=== PATIENT | female | born 1930 | race Caucasian/White ===

== ENCOUNTER → 2016-07-14 | Outpatient (CLI) | payer OTHER ==
[~2016-07-14] MED LIST: ACET-1311 PO; ANALGESIC; ASCO500T3 PO; ASPEC81 PO; CITA10TA8 PO; CITA40TA4 PO; DOCU1TAB6 PO; FRRS300 PO; GABA-112 PO; HYDR-5688 PO; LEVO100T7 PO; LPR25 PO; LPT40 PO; MRLP17X PO; NRN100 PO; NYST100010 TOP; NYSTOIN5; OXYB5TAB74 PO; SENN8.6C PO; SULF-183 PO; SULF800T23 PO; SYN75 PO; ULT50X PO; WARF5TAB7 PO; ZOLP5TAB PO; [UNRECOGNIZED DRUG - CODE] PO
== END | disposition home or self-care (01) ==
LOC: C.LABSPEC 16:49
PROVIDERS: ATTEND Internal Medicine
DX: J09.X2 Influenza due to identified novel influenza A virus with other respiratory manifestations (principal)

== ENCOUNTER → 2016-07-26 | Outpatient (CLI) | payer OTHER ==
[2016-07-26 08:32] LABS: INR 3.4 (0.9-1.1); PROTHROMBIN TIME (PATIENT) 38.5 SECONDS (9.0-12.0)
== END | disposition home or self-care (01) ==
LOC: C.LABSPEC 07:46
PROVIDERS: ATTEND Internal Medicine
DX: I63.50 Cerebral infarction due to unspecified occlusion or stenosis of unspecified cerebral artery (principal)

== ENCOUNTER → 2016-08-02 | Outpatient (CLI) | payer OTHER ==
[2016-08-02 08:50] LABS: INR 3.1 (0.9-1.1); PROTHROMBIN TIME (PATIENT) 34.8 SECONDS (9.0-12.0)
== END | disposition home or self-care (01) ==
LOC: C.LABSPEC 08:22
PROVIDERS: ATTEND Internal Medicine
DX: I48.91 Unspecified atrial fibrillation (principal)

== ENCOUNTER → 2016-08-09 | Outpatient (CLI) | payer OTHER ==
[2016-08-09 09:10] LABS: INR 3.3 (0.9-1.1); PROTHROMBIN TIME (PATIENT) 36.6 SECONDS (9.0-12.0)
== END | disposition home or self-care (01) ==
LOC: C.LABSPEC 08:50
PROVIDERS: ATTEND Internal Medicine
DX: I48.91 Unspecified atrial fibrillation (principal)

== ENCOUNTER → 2016-08-16 | Outpatient (CLI) | payer OTHER ==
[2016-08-16 08:23] LABS: INR 2.8 (0.9-1.1); PROTHROMBIN TIME (PATIENT) 31.1 SECONDS (9.0-12.0)
== END | disposition home or self-care (01) ==
LOC: C.LABSPEC 07:50
PROVIDERS: ATTEND Internal Medicine
DX: I48.91 Unspecified atrial fibrillation (principal)

== ENCOUNTER → 2016-08-30 | Outpatient (CLI) | payer OTHER ==
[2016-08-30 08:57] LABS: INR 2.9 (0.9-1.1); PROTHROMBIN TIME (PATIENT) 32.9 SECONDS (9.0-12.0)
== END | disposition home or self-care (01) ==
LOC: C.LABSPEC 08:14
PROVIDERS: ATTEND Internal Medicine
DX: I63.50 Cerebral infarction due to unspecified occlusion or stenosis of unspecified cerebral artery (principal)

== ENCOUNTER → 2016-09-12 | Outpatient (CLI) | payer OTHER ==
[2016-09-12 12:02] LABS: URINE APPEARANCE CLEAR (CLEAR); URINE BILIRUBIN NEG (NEG); URINE COLOR YELLOW; URINE NITRITE NEG (NEG); URINE PH 6.5 (4.5-7.5); URINE SPECIFIC GRAVITY 1.009 (1.000-1.030); UROBILINOGEN NEG (NEG)
[2016-09-12 12:05] LABS: MANUAL MICROSCOPIC REQUIRED? NO; REVIEW REQ? NO
== END | disposition home or self-care (01) ==
LOC: C.LABSPEC 16:38
PROVIDERS: ATTEND Internal Medicine
DX: R39.9 Unspecified symptoms and signs involving the genitourinary system (principal); N39.0 Urinary tract infection, site not specified

== ENCOUNTER → 2016-09-13 | Outpatient (CLI) | payer OTHER ==
[2016-09-13 08:53] LABS: PROTHROMBIN TIME (PATIENT) 41.4 SECONDS (9.0-12.0)
[2016-09-13 08:58] LABS: INR 3.7 (0.9-1.1)
== END | disposition home or self-care (01) ==
LOC: C.LABSPEC 08:14
PROVIDERS: ATTEND Internal Medicine
DX: I63.50 Cerebral infarction due to unspecified occlusion or stenosis of unspecified cerebral artery (principal)

== ENCOUNTER → 2016-09-20 | Outpatient (CLI) | payer OTHER ==
[2016-09-20 08:36] LABS: INR 2.2 (0.9-1.1)
== END | disposition home or self-care (01) ==
LOC: C.LABSPEC 07:57
PROVIDERS: ATTEND Internal Medicine
DX: I63.50 Cerebral infarction due to unspecified occlusion or stenosis of unspecified cerebral artery (principal)

== ENCOUNTER → 2016-10-04 | Outpatient (CLI) | payer OTHER ==
[2016-10-04 08:29] LABS: INR 3.1 (0.9-1.1); PROTHROMBIN TIME (PATIENT) 34.2 SECONDS (9.0-12.0)
== END | disposition home or self-care (01) ==
LOC: C.LABSPEC 07:46
PROVIDERS: ATTEND Internal Medicine
DX: I63.50 Cerebral infarction due to unspecified occlusion or stenosis of unspecified cerebral artery (principal)

== ENCOUNTER → 2016-10-05 | Outpatient (CLI) | payer OTHER ==
[~2016-10-05] MED LIST changes: +DTR/5 PO; -OXYB5TAB74 PO
[2016-10-05 17:15] LABS: BASO % 1.1 %; BASO ABS # 0.04 K/uL (0-0.2); COMPLETE YES; EOS % 4.4 %; HEMATOCRIT 35.1 % (37-47); LYMPH % 21.3 %; LYMPH ABS # 0.77 K/uL (1.2-3.4); MEAN CELL VOLUME 91.4 fL (80-100); MEAN CORPUSCULAR HEMOGLOBIN 28.1 pg (25-34); MEAN CORPUSCULAR HGB CONC 30.8 g/dl (32-36); MEAN PLATELET VOLUME 10.6 fL (7.4-10.4); MONO % 12.4 %; NEUT % 60.8 %; PLATELET COUNT 326 K/uL (130-400); RED BLOOD COUNT 3.84 M/uL (4.2-5.4); WHITE BLOOD COUNT 3.62 K/uL (4.8-10.8)
[2016-10-05 17:24] LABS: INR 2.2 (0.9-1.1); PROTHROMBIN TIME (PATIENT) 23.9 SECONDS (9.0-12.0)
[2016-10-05 17:27] LABS: ALT/SGPT 22 U/L (12-78); AST/SGOT 21 U/L (15-37); BLOOD UREA NITROGEN 20 mg/dl (7-18); BUN/CREATININE RATIO 20.9 (10-20); CALCIUM 8.3 mg/dl (8.5-10.1); CARBON DIOXIDE 28 mmol/L (21-32); CHLORIDE 111 mmol/L (98-107); CREATININE 0.97 mg/dl (0.60-1.20); GLUCOSE 91 mg/dl (70-99); POTASSIUM 4.2 mmol/L (3.5-5.1); SODIUM 145 mmol/L (136-145)
[2016-10-05 17:30] LABS: ALKALINE PHOSPHATASE 142 U/L (45-117)
== END | disposition home or self-care (01) ==
LOC: C.LABBFT 14:42
PROVIDERS: ATTEND Internal Medicine
DX: I48.91 Unspecified atrial fibrillation (principal); S40.029A Contusion of unspecified upper arm, initial encounter; X58.XXXA Exposure to other specified factors, initial encounter

== ENCOUNTER → 2016-10-18 | Outpatient (CLI) | payer OTHER ==
[2016-10-18 09:08] LABS: INR 1.5 (0.9-1.1); PROTHROMBIN TIME (PATIENT) 16.3 SECONDS (9.0-12.0)
== END | disposition home or self-care (01) ==
LOC: C.LABSPEC 08:02
PROVIDERS: ATTEND Internal Medicine
DX: Z51.81 Encounter for therapeutic drug level monitoring (principal); Z79.01 Long term (current) use of anticoagulants

== ENCOUNTER → 2016-11-01 | Outpatient (CLI) | payer OTHER ==
[2016-11-01 09:52] LABS: PROTHROMBIN TIME (PATIENT) 41.5 SECONDS (9.0-12.0)
[2016-11-01 09:56] LABS: INR 3.7 (0.9-1.1)
== END | disposition home or self-care (01) ==
LOC: C.LABSPEC 08:20
PROVIDERS: ATTEND Internal Medicine
DX: I63.50 Cerebral infarction due to unspecified occlusion or stenosis of unspecified cerebral artery (principal)

== ENCOUNTER → 2016-11-09 | Outpatient (CLI) | payer OTHER ==
[2016-11-09 14:43] LABS: URINE APPEARANCE CLEAR (CLEAR); URINE BILIRUBIN NEG (NEG); URINE COLOR YELLOW; URINE EPITHELIAL CELL AUTO >30 /lpf (0-5); URINE NITRITE POS (NEG); URINE PH 5.5 (4.5-7.5); URINE SPECIFIC GRAVITY 1.021 (1.000-1.030); UROBILINOGEN NEG (NEG)
[2016-11-09 14:46] LABS: MANUAL MICROSCOPIC REQUIRED? NO; REVIEW REQ? NO
== END | disposition home or self-care (01) ==
LOC: C.LABSPEC 13:25
PROVIDERS: ATTEND Physician Assistant Medical
DX: R39.9 Unspecified symptoms and signs involving the genitourinary system (principal); N39.0 Urinary tract infection, site not specified

== ENCOUNTER → 2016-11-15 | Outpatient (CLI) | payer OTHER ==
[2016-11-15 12:55] LABS: PROTHROMBIN TIME (PATIENT) 42.1 SECONDS (9.0-12.0)
[2016-11-15 12:56] LABS: INR 3.7 (0.9-1.1)
== END | disposition home or self-care (01) ==
LOC: C.LABSPEC 11:12
PROVIDERS: ATTEND Internal Medicine
DX: I48.91 Unspecified atrial fibrillation (principal)

== ENCOUNTER → 2016-11-16 | Outpatient (CLI) | payer OTHER ==
[2016-11-16 12:23] LABS: INR 2.9 (0.9-1.1)
== END | disposition home or self-care (01) ==
LOC: C.LABBFT 10:21
PROVIDERS: ATTEND Physician Assistant Medical
DX: I48.91 Unspecified atrial fibrillation (principal)

== ENCOUNTER 2016-11-22 17:40 | Emergency (ER) | payer OTHER ==
[~2016-11-22 17:40] MED LIST changes: -ACET-1311 PO; -ANALGESIC; -CITA10TA8 PO; -CITA40TA4 PO; -DOCU1TAB6 PO; -DTR/5 PO; -GABA-112 PO; -HYDR-5688 PO; -MRLP17X PO; -NYST100010 TOP; -NYSTOIN5; -SULF-183 PO; -SULF800T23 PO; -SYN75 PO; -ULT50X PO; -WARF5TAB7 PO; -ZOLP5TAB PO; -[UNRECOGNIZED DRUG - CODE] PO
[2016-11-22 17:43] VITALS: TEMP 36.7
[2016-11-22] MEDS ORDERED: HYDROCODONE/ACETAMOPHEN 5/325MG TAB PO STA (18:00)
--- NOTE | 2016-11-22 18:15 | EMERGENCY ROOM VISIT NOTE ---
"ED Visit Note First contact with patient: 17:52 CHIEF COMPLAINT: Right knee pain HISTORY OF PRESENT ILLNESS: This 86-year-old female patient presents to the emergency department with her daughters with complaint of right knee pain and swelling for the past 2-3 days. She denies any injury to the knee. The patient reports some swelling, but no bruising. There is pain with bending the knee and walking on the knee. They rate the pain as aching and 6/10. The patient states they are able to walk on it, but this increases the pain. No numbness or tingling. No previous injuries to this knee. No ankle, foot or hip pain. Patient states that she takes Coumadin for history of a stroke. She was recently placed on amoxicillin treatment, today is her last day of this course. REVIEW OF SYSTEMS: A 6 system review of systems was completed with positives and pertinent negatives listed in the HPI. ALLERGIES: None MEDICATIONS: See chart PMH: See chart SOCIAL HISTORY: Lives in assisted living. PHYSICAL EXAM: Vital Signs: Reviewed Nurse's notes, vital signs stable. GENERAL : Alert and pleasant, no acute distress, but appears in mild pain, well- developed, well-nourished. MENTAL STATUS: Alert, oriented to person place and time, and cooperative. MUSCULOSKELETAL: The right knee is mildly swollen. There is no ecchymosis. There is a moderate joint effusion present. The patient is tender to palpation of the superior and lateral region and with flexion. There is no joint line tenderness. The patella does not subluxate. Range of motion is within normal limits. Strength of the quads and hamstrings is 5/5. Ariana's and Anterior Drawer tests are negative. There is no pain or laxity with varus and valgus stressing. The foot and toes are warm and well- perfused. Dorsalis pedis pulse 2+. Sensation to pain and light touch is intact. Capillary refill less than 2 seconds. IMAGING: RIGHT KNEE 2 VIEWS CLINICAL HISTORY: Right knee pain. FINDINGS: AP and crosstable lateral views of the right knee are obtained. No prior studies are available for comparison at the time of dictation. The skeletal structures are osteopenic. No fracture is seen. There is severe joint space narrowing in the lateral compartment with bony sclerosis and subchondral cyst rotation. Moderate to advanced narrowing is seen in the medial and patellofemoral compartments. A calcified fabella is incidentally noted. There are large patellar enthesophytes as well as large lateral marginal osteophytes. There is degenerative beaking of the tibial spine. Chondrocalcinosis is seen in the medial and lateral compartments. A joint effusion is noted. Calcific debris is present in the suprapatellar region. There is atherosclerotic calcification of the popliteal artery. Mild prepatellar soft tissue edema is noted. IMPRESSION: 1. No acute bony abnormality is identified. 2. Soft tissue swelling and joint effusion. 3. Osteopenia, chondrocalcinosis, and arthritic change as detailed above. ULTRASOUND RIGHT LOWER EXTREMITY VENOUS CLINICAL HISTORY: Right leg pain and swelling. COMPARISON STUDY: No priors. TECHNIQUE: Real-time, grayscale, and color Doppler sonography of the deep veins of the right lower extremity was performed from the inguinal crease to the calf. Compression and augmentation were utilized. FINDINGS: There is no sonographic evidence of deep venous thrombosis identified in the right lower extremity. The common femoral, superficial femoral, and popliteal veins are patent and normally compressible. The greater saphenous vein and the profunda femoris vein at the junction with the common femoral vein are clear. The visualized calf veins are patent. There is a complex popliteal cyst measuring 6.6 x 1.6 x 3.6 cm. There is also a complex fluid collection within the anterolateral right knee at the site of interest which measures 6.3 x 1.7 x 5.6 cm. IMPRESSION: 1. There is no sonographic evidence of deep venous thrombosis identified in the right lower extremity. 2. Complex bakers cyst. 3. There is a complex fluid collection within the anterolateral right knee at the site of interest as above. This likely represents a joint effusion. Clinical correlation will be required. EMERGENCY DEPARTMENT COURSE: I examined the patient. Differential diagnosis includes knee sprain, strain, hemarthrosis, joint effusion, DVT; I do not suspect septic joint. She is in no acute distress. She does not appear pale or dehydrated. There is moderate effusion noted to the right knee, painful range of motion, especially flexion past 45. She also has posterior knee and calf pain with mild swelling. The patient's daughters are concerned about a blood clot in the leg. Patient does take Coumadin daily and states she has not missed any doses, I believe hemarthrosis is more likely DVT is less likely given Coumadin therapy. However due to her tenderness in the posterior calf, venous duplex was ordered, negative for DVT but does show moderate joint effusion. X-rays of the right knee were reviewed by myself and read by radiology and reveal no acute bony abnormality, confirm joint effusion. Basic labs are unremarkable, INR is supratherapeutic at 3.5, which may contribute to the suspected bleeding in her knee joint. Given her recent treatment with amoxicillin, this may have contributed to her elevated INR. Patient was instructed to hold her Coumadin dose tonight, and resume her normal dose tomorrow, with a recheck INR in 2 days. The patient's pain is greatly improved after oral [place]. The patient was placed in an Jai wrap to the right knee for compression under my direction and the position was satisfactory. The patient was instructed on the use of her walker. The patient was discharged home in good condition. Problem List Medical Problems: (1) Benign essential hypertension Status: Chronic (2) Carcinoma of sigmoid colon Status: Resolved (3) Hyperlipidemia Status: Chronic (4) Hypothyroidism Status: Chronic Current/Historical Medications Scheduled Ascorbic Acid (Vitamin C), 1 TAB PO BIDM Aspirin (Aspirin EC Low Dose), 81 MG PO QAM Atorvastatin (Atorvastatin Calcium), 80 MG PO PM Citalopram (Citalopram Hydrobromide), 1 TAB PO DAILY Ferrous Sulfate (Ferrous Sulfate), 325 MG PO BIDM Gabapentin (Gabapentin), 100 MG PO TID Levothyroxine Sodium (Levothyroxine Sodium), 100 MCG PO DAILY Metoprolol Tartrate (Lopressor), 25 MG PO BID Warfarin Sod (Jantoven), 5 MG PO DAILY Scheduled PRN Hydrocodone/Acetaminophen 5MG/325MG ([place] 5MG/325MG), 1 TABLET PO Q6H PRN for Pain Miscellaneous Medications Nystatin/Triamcinolone (Mycogen ||) Allergies Coded Allergies: No Known Allergies (Verified , 04/01/14) Vital Signs Date Time Temp Pulse Resp B/P Pulse Ox O2 Delivery O2 Flow Rate FiO2 11/22/16 21:11 60 16 165/90 93 Room Air 11/22/16 19:02 56 16 129/60 91 Room Air 11/22/16 17:43 36.7 80 16 131/56 94 Room Air Laboratory Results 11/22/16 18:20 Red Blood Count 4.09, Mean Corpuscular Volume 91.7, Mean Corpuscular Hemoglobin 28.1, Mean Corpuscular Hemoglobin Concent 30.7, Mean Platelet Volume 10.3, Neutrophils (%) (Auto) 58.8, Lymphocytes (%) (Auto) 19.9, Monocytes (%) (Auto) 15.9, Eosinophils (%) (Auto) 4.3, Basophils (%) (Auto) 1.1, Neutrophils # (Auto ) 2.19, Lymphocytes # (Auto) 0.74, Monocytes # (Auto) 0.59, Eosinophils # (Auto ) 0.16, Basophils # (Auto) 0.04 11/22/16 18:20 Test 11/22/16 18:20 White Blood Count 3.72 K/uL (4.8-10.8) Red Blood Count 4.09 M/uL (4.2-5.4) Hemoglobin 11.5 g/dL (12.0-16.0) Hematocrit 37.5 % (37-47) Mean Corpuscular Volume 91.7 fL (80-100) Mean Corpuscular Hemoglobin 28.1 pg (25-34) Mean Corpuscular Hemoglobin Concent 30.7 g/dl (32-36) Platelet Count 275 K/uL (130-400) Mean Platelet Volume 10.3 fL (7.4-10.4) Neutrophils (%) (Auto) 58.8 % Lymphocytes (%) (Auto) 19.9 % Monocytes (%) (Auto) 15.9 % Eosinophils (%) (Auto) 4.3 % Basophils (%) (Auto) 1.1 % Neutrophils # (Auto) 2.19 K/uL (1.4-6.5) Lymphocytes # (Auto) 0.74 K/uL (1.2-3.4) Monocytes # (Auto) 0.59 K/uL (0.11-0.59) Eosinophils # (Auto) 0.16 K/uL (0-0.5) Basophils # (Auto) 0.04 K/uL (0-0.2) RDW Standard Deviation 47.3 fL (36.4-46.3) RDW Coefficient of Variation 14.2 % (11.5-14.5) Immature Granulocyte % (Auto) 0.0 % Immature Granulocyte # (Auto) 0.00 K/uL (0.00-0.02) Prothrombin Time 38.9 SECONDS (9.0-12.0) Prothromb Time International Ratio 3.5 (0.9-1.1) Anion Gap 6.0 mmol/L (3-11) Estimated GFR () 62.8 Estimated GFR (Non- 54.2 BUN/Creatinine Ratio 22.5 (10-20) Calcium Level 8.3 mg/dl (8.5-10.1) Medications Administered Medications (Trade) Dose Ordered Sig/Josefina Route Start Time Stop Time Status Last Admin Dose Admin Acetaminophen/ Hydrocodone Bitart ([place] 5/325 Tab) 1 tab NOW STAT PO 11/22/16 18:00 11/22/16 18:02 DC 11/22/16 18:24 1 TAB Departure Information Impression Primary Impression: Effusion, right knee Dispostion Home / Self-Care Condition GOOD Prescriptions Hydrocodone/Acetaminophen 5MG/325MG ([place] 5MG/325MG) Tab 1 TABLET PO Q6H Y for Pain for 3 Days, #12 TAB For Initial Treatment Prov: Kalpana Montero CRNP 11/22/16 Referrals [facility] (PCP) Patient Instructions ED Effusion Knee, [facility] Additional Instructions Ice and elevate knee for swelling and pain. Keep knee wrapped with the Jai wrap for the next several days to help swelling and improve comfort. Use your walker at all times for getting around to help prevent falls. [place] 5/325 1 tablet every 6 hrs as needed for pain relief. Follow-up with your PCP or Orthopedics for further evaluation and treatment - call for appointment. Your INR today was 3.5, which is slightly higher than it should be. Do not take your warfarin tonight (11/22/16). You may resume taking her warfarin tomorrow, 11/23. You should plan to follow up with your family doctor for a repeat INR blood test in 2 days."
[2016-11-22] MEDS ORDERED: NYSTOIN5 (18:22)
[2016-11-22] MEDS ORDERED: CITA40TA4 PO (18:22)
[2016-11-22] MEDS ORDERED: WARF5TAB7 PO (18:22)
[2016-11-22 18:27] LABS: BASO % 1.1 %; BASO ABS # 0.04 K/uL (0-0.2); COMPLETE YES; EOS % 4.3 %; HEMATOCRIT 37.5 % (37-47); LYMPH % 19.9 %; LYMPH ABS # 0.74 K/uL (1.2-3.4); MEAN CELL VOLUME 91.7 fL (80-100); MEAN CORPUSCULAR HEMOGLOBIN 28.1 pg (25-34); MEAN CORPUSCULAR HGB CONC 30.7 g/dl (32-36); MEAN PLATELET VOLUME 10.3 fL (7.4-10.4); MONO % 15.9 %; NEUT % 58.8 %; PLATELET COUNT 275 K/uL (130-400); RED BLOOD COUNT 4.09 M/uL (4.2-5.4); WHITE BLOOD COUNT 3.72 K/uL (4.8-10.8)
[2016-11-22 18:35] LABS: INR 3.5 (0.9-1.1); PROTHROMBIN TIME (PATIENT) 38.9 SECONDS (9.0-12.0)
--- NOTE | 2016-11-22 18:40 | EMERGENCY ROOM VISIT NOTE ---
ED Visit Note First contact with patient: 17:52 I saw this patient in conjunction with Kalpana Bartlett. I agree with her decision- making and treatment plan.
[2016-11-22 19:00] LABS: BLOOD UREA NITROGEN 21 mg/dl (7-18); BUN/CREATININE RATIO 22.5 (10-20); CALCIUM 8.3 mg/dl (8.5-10.1); CARBON DIOXIDE 26 mmol/L (21-32); CHLORIDE 110 mmol/L (98-107); CREATININE 0.94 mg/dl (0.60-1.20); GLUCOSE 133 mg/dl (70-99); POTASSIUM 4.3 mmol/L (3.5-5.1); SODIUM 142 mmol/L (136-145)
--- NOTE | 2016-11-22 19:01 | DIAGNOSTIC IMAGING REPORT ---
RIGHT KNEE 2 VIEWS CLINICAL HISTORY: Right knee pain. FINDINGS: AP and crosstable lateral views of the right knee are obtained. No prior studies are available for comparison at the time of dictation. The skeletal structures are osteopenic. No fracture is seen. There is severe joint space narrowing in the lateral compartment with bony sclerosis and subchondral cyst rotation. Moderate to advanced narrowing is seen in the medial and patellofemoral compartments. A calcified fabella is incidentally noted. There are large patellar enthesophytes as well as large lateral marginal osteophytes. There is degenerative beaking of the tibial spine. Chondrocalcinosis is seen in the medial and lateral compartments. A joint effusion is noted. Calcific debris is present in the suprapatellar region. There is atherosclerotic calcification of the popliteal artery. Mild prepatellar soft tissue edema is noted. IMPRESSION: 1. No acute bony abnormality is identified. 2. Soft tissue swelling and joint effusion. 3. Osteopenia, chondrocalcinosis, and arthritic change as detailed above. Electronically signed by: William Jacobo M.D. 11/22/2016 7:00 PM Dictated Date/Time: 11/22/2016 6:57 PM
--- NOTE | 2016-11-22 19:47 | DIAGNOSTIC IMAGING REPORT ---
ULTRASOUND RIGHT LOWER EXTREMITY VENOUS CLINICAL HISTORY: Right leg pain and swelling. COMPARISON STUDY: No priors. TECHNIQUE: Real-time, grayscale, and color Doppler sonography of the deep veins of the right lower extremity was performed from the inguinal crease to the calf. Compression and augmentation were utilized. FINDINGS: There is no sonographic evidence of deep venous thrombosis identified in the right lower extremity. The common femoral, superficial femoral, and popliteal veins are patent and normally compressible. The greater saphenous vein and the profunda femoris vein at the junction with the common femoral vein are clear. The visualized calf veins are patent. There is a complex popliteal cyst measuring 6.6 x 1.6 x 3.6 cm. There is also a complex fluid collection within the anterolateral right knee at the site of interest which measures 6.3 x 1.7 x 5.6 cm. IMPRESSION: 1. There is no sonographic evidence of deep venous thrombosis identified in the right lower extremity. 2. Complex bakers cyst. 3. There is a complex fluid collection within the anterolateral right knee at the site of interest as above. This likely represents a joint effusion. Clinical correlation will be required. Electronically signed by: William Jacobo M.D. 11/22/2016 7:45 PM Dictated Date/Time: 11/22/2016 7:44 PM
[2016-11-22] MEDS ORDERED: HYDR-5688 PO (21:08)
[2016-11-22 21:11] VITALS: BP 165/90; PULSE 60; O2SAT 93
[2017-03-25] MEDS ORDERED: DTR/5 PO (10:05)
[2017-03-27] MEDS ORDERED: SYN75 PO (13:57)
[2017-03-27] MEDS ORDERED: MRLP17X PO (13:57)
[2017-03-27] MEDS ORDERED: ULT50X PO (13:57)
[2017-03-27] MEDS ORDERED: LPR25 PO (15:08)
== END 2016-11-22 21:18 | disposition home or self-care (01) ==
LOC: C.EDB 17:41 → C.EDD 21:18
DX: M25.461 Effusion, right knee (principal); I10 Essential (primary) hypertension; E78.5 Hyperlipidemia, unspecified; E03.9 Hypothyroidism, unspecified; Z85.038 Personal history of other malignant neoplasm of large intestine; Z79.82 Long term (current) use of aspirin; Z79.01 Long term (current) use of anticoagulants; Z79.899 Other long term (current) drug therapy; M79.661 Pain in right lower leg

== ENCOUNTER → 2016-11-29 | Outpatient (CLI) | payer OTHER ==
[~2016-11-29] MED LIST changes: +ACET-1311 PO; +ANALGESIC; +CITA10TA8 PO; +CITA40TA4 PO; +DOCU1TAB6 PO; +DTR/5 PO; +GABA-112 PO; +MRLP17X PO; +NYST100010 TOP; +NYSTOIN5; -SENN8.6C PO; +SULF-183 PO; +SULF800T23 PO; +SYN75 PO; +ULT50X PO; +WARF5TAB7 PO; +ZOLP5TAB PO; +[UNRECOGNIZED DRUG - CODE] PO
[2016-11-29 12:28] LABS: INR 3.1 (0.9-1.1); PROTHROMBIN TIME (PATIENT) 34.3 SECONDS (9.0-12.0)
== END | disposition home or self-care (01) ==
LOC: C.LABSPEC 15:41
PROVIDERS: ATTEND Internal Medicine
DX: Z51.81 Encounter for therapeutic drug level monitoring (principal); Z79.01 Long term (current) use of anticoagulants

== ENCOUNTER → 2017-01-10 | Outpatient (CLI) | payer OTHER ==
[~2017-01-10] MED LIST changes: -DTR/5 PO; +OXYB5TAB74 PO
[2017-01-10 14:46] LABS: MANUAL MICROSCOPIC REQUIRED? NO; REVIEW REQ? NO; URINE APPEARANCE CLEAR (CLEAR); URINE BILIRUBIN NEG (NEG); URINE COLOR YELLOW; URINE NITRITE NEG (NEG); URINE PH 6.5 (4.5-7.5); URINE SPECIFIC GRAVITY 1.016 (1.000-1.030); UROBILINOGEN NEG (NEG)
== END | disposition home or self-care (01) ==
LOC: C.LABSPEC 13:17
PROVIDERS: ATTEND Internal Medicine
DX: N39.8 Other specified disorders of urinary system (principal)

== ENCOUNTER → 2017-02-14 | Outpatient (CLI) | payer OTHER ==
[2017-02-14 08:33] LABS: INR 1.9 (0.9-1.1); PROTHROMBIN TIME (PATIENT) 20.7 SECONDS (9.0-12.0)
== END | disposition home or self-care (01) ==
LOC: C.LABSPEC 07:47
PROVIDERS: ATTEND Internal Medicine
DX: I48.91 Unspecified atrial fibrillation (principal)

== ENCOUNTER → 2017-02-28 | Outpatient (CLI) | payer OTHER ==
[2017-02-28 09:45] LABS: INR 1.6 (0.9-1.1); PROTHROMBIN TIME (PATIENT) 17.2 SECONDS (9.0-12.0)
== END | disposition home or self-care (01) ==
LOC: C.LABSPEC 09:04
PROVIDERS: ATTEND Internal Medicine
DX: I67.89 Other cerebrovascular disease (principal)

== ENCOUNTER → 2017-03-14 | Outpatient (CLI) | payer OTHER ==
[2017-03-14 08:13] LABS: INR 1.5 (0.9-1.1); PROTHROMBIN TIME (PATIENT) 16.1 SECONDS (9.0-12.0)
== END | disposition home or self-care (01) ==
LOC: C.LABSPEC 07:43
PROVIDERS: ATTEND Internal Medicine
DX: Z51.81 Encounter for therapeutic drug level monitoring (principal); Z79.01 Long term (current) use of anticoagulants; I48.91 Unspecified atrial fibrillation

== ENCOUNTER → 2017-03-21 | Outpatient (CLI) | payer OTHER ==
[2017-03-21 11:37] LABS: URINE APPEARANCE CLOUDY (CLEAR); URINE BILIRUBIN NEG (NEG); URINE COLOR YELLOW; URINE EPITHELIAL CELL AUTO >30 /lpf (0-5); URINE NITRITE POS (NEG); URINE SPECIFIC GRAVITY 1.007 (1.000-1.030); UROBILINOGEN NEG (NEG)
[2017-03-21 11:40] LABS: MANUAL MICROSCOPIC REQUIRED? NO; REVIEW REQ? YES
== END | disposition home or self-care (01) ==
LOC: C.LABSPEC 08:52
PROVIDERS: ATTEND Internal Medicine
DX: N39.0 Urinary tract infection, site not specified (principal)

== ENCOUNTER 2017-03-25 09:00 | Inpatient (IN) | payer OTHER ==
[~2017-03-25] VITALS: Ht 157.5 cm; Wt 76.3 kg
[~2017-03-25 09:00] MED LIST changes: -ACET-1311 PO; -ANALGESIC; -CITA10TA8 PO; -DOCU1TAB6 PO; -GABA-112 PO; -MRLP17X PO; -NYST100010 TOP; -OXYB5TAB74 PO; -SULF-183 PO; -SULF800T23 PO; -SYN75 PO; -ULT50X PO; -ZOLP5TAB PO; -[UNRECOGNIZED DRUG - CODE] PO
[2017-03-25] MEDS ORDERED: SODIUM CHLORIDE 0.9% 500ML 500 ML IV STA (09:26)
[2017-03-25] MEDS ORDERED: SULF-183 PO (09:59)
[2017-03-25] MEDS ORDERED: GABA-112 PO (09:59)
[2017-03-25] MEDS ORDERED: CITA10TA8 PO (09:59)
[2017-03-25] MEDS ORDERED: WARF5TAB7 PO (09:59)
[2017-03-25] MEDS ORDERED: DOCU1TAB6 PO (10:05)
[2017-03-25] MEDS ORDERED: ZOLP5TAB PO (10:05)
[2017-03-25] MEDS ORDERED: [UNRECOGNIZED DRUG - CODE] PO (10:05)
[2017-03-25] MEDS ORDERED: NYST100010 TOP (10:05)
[2017-03-25] MEDS ORDERED: ACET-1311 PO (10:05)
[2017-03-25] MEDS ORDERED: OXYB5TAB74 PO (10:05)
[2017-03-25] MEDS ORDERED: ANALGESIC (10:05)
[2017-03-25 10:11] LABS: BASO % 0.4 %; BASO ABS # 0.02 K/uL (0-0.2); COMPLETE YES; EOS % 2.4 %; HEMATOCRIT 39.9 % (37-47); IG% 0.4 %; LYMPH % 6.4 %; LYMPH ABS # 0.35 K/uL (1.2-3.4); MEAN CELL VOLUME 92.8 fL (80-100); MEAN CORPUSCULAR HEMOGLOBIN 29.1 pg (25-34); MEAN CORPUSCULAR HGB CONC 31.3 g/dl (32-36); MEAN PLATELET VOLUME 10.1 fL (7.4-10.4); MONO % 7.6 %; NEUT % 82.8 %; PLATELET COUNT 266 K/uL (130-400); WHITE BLOOD COUNT 5.43 K/uL (4.8-10.8)
--- NOTE | 2017-03-25 10:16 | EMERGENCY ROOM VISIT NOTE ---
History Report prepared by Emma: Emeterio Higgins Under the Supervision of: Dr. Cayden Hendrickson D.O. First contact with patient: 09:16 Chief Complaint: FALL Stated Complaint: FALL History of Present Illness The patient is an 86 year old female who presents to the Emergency Room with complaints of a sudden fall occurring around 0730 this morning. The patient's family states that the patient has been having numb legs, and this morning she fell at home. The family additionally states that the patient fell about a week ago, though she did not come in for evaluation. The patient is complaining of hip pain, leg pain, and back pain. The patient denies any nausea, vomiting, headache, neck pain, and abdominal pain. The patient is currently on antibiotics for a UTI, and she is on blood thinners for an irregular heart beat. Additionally, her family states that she has been more confused recently. Source of History: patient Onset: 0730 Position: other (global) Quality: other (fall) Timing: other (sudden) Associated Symptoms: + back pain, No neck pain, No nausea, No vomiting, No abdominal pain Note: Associated symptoms: Leg and hip pain Review of Systems See HPI for pertinent positives & negatives. A total of 10 systems reviewed and were otherwise negative. Past Medical & Surgical Medical Problems: (1) Benign essential hypertension (2) Carcinoma of sigmoid colon (3) Fall (4) Hyperlipidemia (5) Hypothyroidism Family History Insignificant due to old age Social History Smoking Status: Never Smoker Alcohol Use: none Drug Use: none Marital Status: Housing Status: lives alone Occupation Status: retired Current/Historical Medications Scheduled Ascorbic Acid (Vitamin C), 1 TAB PO BIDM Aspirin (Aspirin EC Low Dose), 81 MG PO QAM Atorvastatin (Atorvastatin Calcium), 80 MG PO PM Citalopram Hydrobromide (Celexa), 10 MG PO DAILY Gabapentin (Neurontin), 200 MG PO TID Levothyroxine Sodium (Levothyroxine Sodium), 100 MCG PO DAILY Metoprolol Tartrate (Lopressor), 25 MG PO BID Oxybutynin Chloride (Ditropan), 5 MG PO BID Sulfamethoxazole-Trimethoprim (Bactrim Ds 800MG/160MG), 1 TAB PO BID Warfarin Sod (Jantoven), 2.5 MG PO Q2D Warfarin Sod (Jantoven), 1 TAB PO Q2D Zolpidem Tartrate (Ambien), 5 MG PO HS [Analgesic Gel], 1 APPLN DIRECTED Scheduled PRN Acetaminophen (Qc Arthritis Pain Relief), 2 TABS PO BID PRN for Pain Docusate Sodium (Docusate Sodium), 1 CAP PO DAILY PRN for Constipation Nystatin (Topical) (Nystop), 1 APPLN TOP BID PRN for RED AREAS Allergies Coded Allergies: No Known Allergies (Verified , 03/25/17) Physical Exam Vital Signs Date Time Temp Pulse Resp B/P (MAP) Pulse Ox O2 Delivery O2 Flow Rate FiO2 03/25/17 13:00 73 20 92 Nasal Cannula 2.0 03/25/17 12:30 69 17 93 03/25/17 12:00 77 20 91 03/25/17 11:52 69 18 123/65 93 Nasal Cannula 2.0 03/25/17 11:51 123/65 03/25/17 11:00 96 15 03/25/17 09:57 93 Nasal Cannula 2.0 03/25/17 09:52 69 03/25/17 09:50 87 Room Air 03/25/17 09:04 36.7 80 18 107/65 87 Room Air Physical Exam GENERAL: Patient is awake, alert, and mildly anxious appearing. She appears to be in pain. EYES: The conjunctivae are clear. The pupils are round and reactive. EARS, NOSE, MOUTH AND THROAT: The nose is without any evidence of any deformity. Mucous membranes are dry tongue is midline NECK: The neck is nontender and supple. RESPIRATORY: Normal respiratory effort is noted there is no evidence of wheezing rhonchi or rales CARDIOVASCULAR: Regular rate and rhythm noted there no murmurs rubs or gallops normal S1 normal S2 GASTROINTESTINAL: The abdomen is soft. Bowel sounds are present in all quadrants. Abdomen is nontender BACK: There was low lumbar spine tenderness to percussion. Range of motion intact. Tenderness over the left SI joint. MUSCULOSKELETAL/EXTREMITIES: Decreased range of motion at the left hip. No deformity. Patient was able to put weight on the left leg. SKIN: Pedal edema bilaterally. Small ulceration in the posterior left ankle. Mild erythema noted. There is no obvious evidence of any rash. There are no petechiae, pallor or cyanosis noted. NEUROLOGIC: Patient is awake alert and oriented x3 strength is diminished but symmetric. Medical Decision & Procedures ER Provider Diagnostic Interpretation: Radiology results as stated below per my review and radiologist interpretation: LUMBAR SPINE WITHOUT CLINICAL HISTORY: 86 years-old Female presenting with fall. TECHNIQUE: Multidetector CT of the lumbar spine was performed without the use of intravenous contrast. IV contrast: None. A dose lowering technique was used consistent with the principles of ALARA (as low as reasonably achievable). COMPARISON: Correlation made to CT of the abdomen and pelvis from 2011. CT DOSE (mGy.cm): The estimated cumulative dose is 1620.[address] head and cervical spine. FINDINGS: Headwaiter/Headwaitress topogram: Unremarkable. Normal lumbar lordosis. S-shaped scoliotic curvature of the lumbar spine. Severe multilevel degenerative changes with disc height loss and vacuum disc phenomenon noted at every level. Vertebral body heights maintained. Degenerative endplate changes noted. Posterior osteophytosis likely with disc bulges mildly efface the ventral spinal canal to varying degrees. Facet arthropathy in combination with degenerative disc disease results in varying degrees of osseous neural foraminal narrowing greatest on the left at L5-S1. No acute fracture or subluxation. Degenerative changes of the sacroiliac joints. No convincing evidence of a sacral alar fracture. Atherosclerosis. 1.8 cm indeterminate left adrenal nodule with a density of 14 Hounsfield units. IMPRESSION: 1. No acute osseous injury of the lumbar spine. No evidence of sacral alar fracture. 2. Scoliosis with severe multilevel degenerative changes resulting in varying degrees of osseous neural foraminal narrowing most severe at L5-S1 and mild effacement of the ventral spinal canal secondary to posterior osteophytosis. 3. Indeterminate left adrenal 1.8 cm nodule. Statistically, this still most likely represents a benign adenoma. If there is clinical concern or known malignancy, further evaluation with dedicated CT or MR with adrenal protocol could be obtained. Electronically signed by: Angelo Juarez M.D. 03/25/2017 11:13 AM Dictated Date/Time: 03/25/2017 11:05 AM LEFT PELVIS/UNILATERAL HIP 2-3VIEWS CLINICAL HISTORY: 86 years-old Female presenting with fall. TECHNIQUE: Single frontal view of the pelvis and frontal and oblique views of the left hip were obtained. COMPARISON: Correlation made to CT of the pelvis from 2011. FINDINGS: Irregularity of the inferior left pubic ramus and left superior pubic ramus immediately adjacent to the acetabulum concerning for nondisplaced fractures. No evidence of a femoral neck fracture. Hip joints congruent. Extensive degenerative changes of the lower lumbar spine noted. The arcuate lines on the left may be disrupted raising concern for sacral fracture. Numerous surgical clips noted. Moderate stool are none. Atherosclerosis. IMPRESSION: 1. Findings concerning for nondisplaced fractures of the left superior and inferior pubic rami. 2. Additionally, apparent disruption of arcuate lines along the left sacral ala raise concern for left sacral fracture. Correlate clinically for point tenderness in this region. 3. Further evaluation with noncontrast CT pelvis to be considered. Electronically signed by: Angelo Juarez M.D. 03/25/2017 10:42 AM Dictated Date/Time: 03/25/2017 10:38 AM HEAD WITHOUT CONTRAST (CT) CLINICAL HISTORY: 86 years-old Female presenting with EVALUATE ALTERED MENTAL STATUS/WEAKNESS. TECHNIQUE: Multidetector CT imaging of the head was performed without the use of intravenous contrast. IV contrast: None. A dose lowering technique was used consistent with the principles of ALARA (as low as reasonably achievable). COMPARISON: 08/26/2014. CT DOSE (mGy.cm): The estimated cumulative dose is 1620.[address] cervical spine and CT lumbar spine. FINDINGS: Headwaiter/Headwaitress topogram: Unremarkable. Proportional ventricular and sulcal prominence, likely age-related parenchymal volume loss. Periventricular and subcortical white matter hypoattenuation, nonspecific but likely indicative of chronic small vessel ischemic change. 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 No mass effect or midline shift. No hemorrhage or acute territorial infarct. No extra-axial fluid collection. Paranasal sinuses and mastoid air cells clear. Calvarium intact. IMPRESSION: 1. No acute intracranial pathology. 2. Chronic small vessels giving change in chronic infarct in the right frontal region. Electronically signed by: Angelo Juarez M.D. 03/25/2017 10:50 AM Dictated Date/Time: 03/25/2017 10:47 AM CHEST 2 VIEWS ROUTINE CLINICAL HISTORY: 86 years-old Female presenting with WEAKNESS. TECHNIQUE: Portable upright AP view of the chest was obtained. COMPARISON: 08/26/2014. FINDINGS: Atherosclerosis of aortic arch. Tortuosity of the descending thoracic aorta. Cardiac silhouette remains enlarged. Right basilar opacity, the configuration of which is unchanged from prior exam and is compatible with atelectatic change adjacent to the moderate hiatal hernia. No large effusion or pneumothorax. Osseous structures normal. Upper abdomen normal. IMPRESSION: 1. No acute cardiopulmonary disease. 2. Cardiomegaly. Electronically signed by: Angelo Juarez M.D. 03/25/2017 10:43 AM Dictated Date/Time: 03/25/2017 10:42 AM CERVICAL SPINE W/O CLINICAL HISTORY: 86 years-old Female presenting with fall, bilateral leg weakness. TECHNIQUE: Multidetector CT of the cervical spine was performed without the use of intravenous contrast. IV contrast: None. A dose lowering technique was used consistent with the principles of ALARA (as low as reasonably achievable). COMPARISON: 08/26/2014. CT DOSE (mGy.cm): The estimated cumulative dose is 1620.86 mGy.cm. FINDINGS: Headwaiter/Headwaitress topogram: Unremarkable. Straightening of normal cervical lordosis, unchanged. This is likely degenerative in etiology. Multilevel degenerative changes with disc osteophyte complexes at nearly every level. Vertebral bodies maintain normal height and alignment. Intervertebral disc height loss at C4-5 and C5-6. No acute fracture or subluxation. Osseous neural foraminal narrowing noted at C4-5 and to a lesser degree at C5-6. No osseous spinal canal narrowing. Skull base intact. Regional soft tissues within normal limits. Lung apices clear. IMPRESSION: No acute osseous injury of the cervical spine. Electronically signed by: Angelo Juarez M.D. 03/25/2017 11:00 AM Dictated Date/Time: 03/25/2017 10:55 AM PELVIS NO IV/ORAL CONT (CT) CLINICAL HISTORY: 86 years-old Female presenting with fall, concern for fracture on plain radiograph of the pelvis. TECHNIQUE: Multidetector CT of the pelvis was performed without the use of intravenous contrast. IV contrast: None. A dose lowering technique was used consistent with the principles of ALARA (as low as reasonably achievable). COMPARISON: Correlation made to plain radiographs of the pelvis performed earlier the same day. CT DOSE (mGy.cm): The estimated cumulative dose is 911.26 mGy.cm. FINDINGS: Headwaiter/Headwaitress topogram: Unremarkable. Evidence of a nondisplaced fracture of the left superior pubic ramus at the acetabulum (series 3 image 67). Additionally, minimally impacted fracture of the left inferior pubic ramus noted. No additional pelvic fracture is evident. Degenerative changes of the bilateral sacroiliac joints and lumbar spine. Sacral ala intact. No femoral neck fracture. Hip joints congruent. Pubic symphysis congruent. Soft tissues of the pelvis demonstrate presacral infiltration as well as extraperitoneal infiltration along the left pelvic sidewall compatible with hematoma. Midline ventral hernia secondary to diastases of the abdominis rectus. Two small bowel anastomoses. A colorectal anastomosis is also noted. No bowel obstruction. Bladder normal. Uterus surgically absent. Atherosclerosis with mild ectasia of the infrarenal abdominal aorta measuring up to 2.3 cm in maximal transverse dimension. IMPRESSION: 1. Nondisplaced fracture of the left superior pubic ramus and minimally impacted fracture of the left inferior pubic ramus. Associated small amount of extraperitoneal pelvic hematoma. 2. No sacral fracture. Electronically signed by: Angelo Juarez M.D. 03/25/2017 11:53 AM Dictated Date/Time: 03/25/2017 11:49 AM Laboratory Results 03/25/17 10:00 Red Blood Count 4.30, Mean Corpuscular Volume 92.8, Mean Corpuscular Hemoglobin 29.1, Mean Corpuscular Hemoglobin Concent 31.3, Mean Platelet Volume 10.1, Neutrophils (%) (Auto) 82.8, Lymphocytes (%) (Auto) 6.4, Monocytes (%) (Auto) 7.6, Eosinophils (%) (Auto) 2.4, Basophils (%) (Auto) 0.4, Neutrophils # (Auto) 4.50, Lymphocytes # (Auto) 0.35, Monocytes # (Auto) 0.41, Eosinophils # (Auto) 0.13, Basophils # (Auto) 0.02 03/25/17 10:00 Test 03/25/17 10:00 03/25/17 11:15 White Blood Count 5.43 K/uL (4.8-10.8) Red Blood Count 4.30 M/uL (4.2-5.4) Hemoglobin 12.5 g/dL (12.0-16.0) Hematocrit 39.9 % (37-47) Mean Corpuscular Volume 92.8 fL (80-100) Mean Corpuscular Hemoglobin 29.1 pg (25-34) Mean Corpuscular Hemoglobin Concent 31.3 g/dl (32-36) Platelet Count 266 K/uL (130-400) Mean Platelet Volume 10.1 fL (7.4-10.4) Neutrophils (%) (Auto) 82.8 % Lymphocytes (%) (Auto) 6.4 % Monocytes (%) (Auto) 7.6 % Eosinophils (%) (Auto) 2.4 % Basophils (%) (Auto) 0.4 % Neutrophils # (Auto) 4.50 K/uL (1.4-6.5) Lymphocytes # (Auto) 0.35 K/uL (1.2-3.4) Monocytes # (Auto) 0.41 K/uL (0.11-0.59) Eosinophils # (Auto) 0.13 K/uL (0-0.5) Basophils # (Auto) 0.02 K/uL (0-0.2) RDW Standard Deviation 49.8 fL (36.4-46.3) RDW Coefficient of Variation 14.7 % (11.5-14.5) Immature Granulocyte % (Auto) 0.4 % Immature Granulocyte # (Auto) 0.02 K/uL (0.00-0.02) Prothrombin Time 28.8 SECONDS (9.0-12.0) Prothromb Time International Ratio 2.6 (0.9-1.1) Activated Partial Thromboplast Time 33.4 SECONDS (21.0-31.0) Partial Thromboplastin Ratio 1.3 Anion Gap 7.0 mmol/L (3-11) Estimated GFR () 58.3 Estimated GFR (Non- 50.3 BUN/Creatinine Ratio 19.5 (10-20) Calcium Level 8.8 mg/dl (8.5-10.1) Magnesium Level 2.0 mg/dl (1.8-2.4) Total Bilirubin 0.4 mg/dl (0.2-1) Direct Bilirubin 0.2 mg/dl (0-0.2) Aspartate Amino Transf (AST/SGOT) 26 U/L (15-37) Alanine Aminotransferase (ALT/SGPT) 28 U/L (12-78) Alkaline Phosphatase 129 U/L (45-117) Total Creatine Kinase 211 U/L (26-192) Creatine Kinase MB 4.0 ng/ml (0.5-3.6) Creatine Kinase MB Ratio 1.9 (0-3.0) Troponin I 0.029 ng/ml (0-0.045) Total Protein 6.5 gm/dl (6.4-8.2) Albumin 3.1 gm/dl (3.4-5.0) Thyroid Stimulating Hormone (TSH) 0.145 uIu/ml (0.300-4.500) Free Thyroxine 1.25 ng/dl (0.80-1.60) Urine Color YELLOW Urine Appearance CLEAR (CLEAR) Urine pH 6.0 (4.5-7.5) Urine Specific [place] 1.016 (1.000-1.030) Urine Protein NEG (NEG) Urine Glucose (UA) NEG (NEG) Urine Ketones NEG (NEG) Urine Occult Blood NEG (NEG) Urine Nitrite NEG (NEG) Urine Bilirubin NEG (NEG) Urine Urobilinogen NEG (NEG) Urine Leukocyte Esterase SMALL (NEG) Urine WBC (Auto) 5-10 /hpf (0-5) Urine RBC (Auto) 10-30 /hpf (0-4) Urine Hyaline Casts (Auto) 1-5 /lpf (0-5) Urine Epithelial Cells (Auto) 20-30 /lpf (0-5) Urine Bacteria (Auto) NEG (NEG) Laboratory results per my review. Medications Administered Medications (Trade) Dose Ordered Sig/Josefina Route Start Time Stop Time Status Last Admin Dose Admin Sodium Chloride 500 ml @ 999 mls/hr Q31M STAT IV 03/25/17 09:26 03/25/17 09:56 DC 03/25/17 10:49 999 MLS/HR ECG Indication: other (fall) Rate (beats per minute): 67 Rhythm: sinus rhythm Findings: 1st degree AV block, T-wave inversion (Inferior and lateral), no ectopy, other (LVH by voltage criteria) Comparison ECG Date: 08/29/14 Change: T-wave inversions are new ED Course 0916: The patient was evaluated in room B4. A complete history and physical examination were performed. 0926: NSS 500 ml @ 999 mls/hr IV 1106: I reevaluated the patient, and she is going to get a CT scan. 1214: I reevaluated the patient, and I discussed the treatment plan with her and her family. 1240: I discussed the patient's case with Henrry Curry. The patient will be evaluated for further management. Medical Decision Differential diagnosis: Etiologies such as fracture, dislocation, intra-abdominal, pneumothorax, intrathoracic , intracranial, neurologic, as well as other traumatic pathologies were entertained. Nursing notes reviewed. Additional history is obtained from the patient's family members. The patient is an 86-year-old female who presented to the emergency apartment for evaluation after falling. According to the family members the patient has been having difficulty ambulating and generalized weakness which is been worsening but she's had 2 falls recently. She had a fall approximately one week ago which resulted in left -sided pain. She has pain through the lower back into her left hip. The patient' s fall today does not sound as though it was a significant fall but the family was very concerned because she's been having weakness. She does take blood thinners but did not deftly strike her head. The patient had a significant laboratory and radiographic workup in the emergency department. Ultimately she was found have signs of a fracture in the superior and inferior pubic rami. I do feel this would explain the patient's pain. She did not wish to have pain medications at this time but has significant difficulty with ambulation because of this injury. I discussed the patient's laboratory and radiographic studies with her. I also discussed her case with the on-call [facility] hospitalist group. They've agreed to evaluate the patient in emergency department for further management and disposition. The patient currently resides at a personal nursing home and I am unsure if she can return to this level of care. She may require a formal evaluation by OT and PT to evaluate what her best course is. I discussed this with the family and the patient and they were agreeable to this plan. Medication Reconcilliation Current Medication List: was personally reviewed by me Blood Pressure Screening Patient's blood pressure: Normal blood pressure Consults Time Called: 1235 Consulting Physician: Henrry Curry Returned Call: 1240 I discussed the patient's case with Henrry Curry. The patient will be evaluated for further management. Impression Primary Impression: Fall Additional Impressions: Weakness Fracture of left pelvis Scribe Attestation The scribe's documentation has been prepared under my direction and personally reviewed by me in its entirety. I confirm that the note above accurately reflects all work, treatment, procedures, and medical decision making performed by me. Departure Information Dispostion Being Evaluated By Hospitalist Referrals [facility] (PCP) Patient Instructions [facility] Problem Qualifiers Primary Impression: Fall Encounter type: initial encounter Qualified Codes: W19.XXXA - Unspecified fall, initial encounter Additional Impressions: Fracture of left pelvis Encounter type: initial encounter Pelvic bone location: pubis Sublocation of pubis: superior rim Fracture type: closed Qualified Codes: S32.512A - Fracture of superior rim of left pubis, initial encounter for closed fracture
[2017-03-25 10:22] LABS: INR 2.6 (0.9-1.1); PARTIAL THROMBOPLASTIN RATIO 1.3; PROTHROMBIN TIME (PATIENT) 28.8 SECONDS (9.0-12.0)
[2017-03-25 10:25] LABS: ALT/SGPT 28 U/L (12-78); BLOOD UREA NITROGEN 20 mg/dl (7-18); BUN/CREATININE RATIO 19.5 (10-20); CALCIUM 8.8 mg/dl (8.5-10.1); CARBON DIOXIDE 25 mmol/L (21-32); CHLORIDE 107 mmol/L (98-107); GLUCOSE 108 mg/dl (70-99); SODIUM 139 mmol/L (136-145)
[2017-03-25 10:36] LABS: ALKALINE PHOSPHATASE 129 U/L (45-117); AST/SGOT 26 U/L (15-37); CKMB/CK RATIO 1.9 (0-3.0); THYROID STIMULATING HORMONE 0.145 uIu/ml (0.300-4.500)
--- NOTE | 2017-03-25 10:43 | DIAGNOSTIC IMAGING REPORT ---
LEFT PELVIS/UNILATERAL HIP 2-3VIEWS CLINICAL HISTORY: 86 years-old Female presenting with fall. TECHNIQUE: Single frontal view of the pelvis and frontal and oblique views of the left hip were obtained. COMPARISON: Correlation made to CT of the pelvis from 2012. FINDINGS: Irregularity of the inferior left pubic ramus and left superior pubic ramus immediately adjacent to the acetabulum concerning for nondisplaced fractures. No evidence of a femoral neck fracture. Hip joints congruent. Extensive degenerative changes of the lower lumbar spine noted. The arcuate lines on the left may be disrupted raising concern for sacral fracture. Numerous surgical clips noted. Moderate stool are none. Atherosclerosis. IMPRESSION: 1. Findings concerning for nondisplaced fractures of the left superior and inferior pubic rami. 2. Additionally, apparent disruption of arcuate lines along the left sacral ala raise concern for left sacral fracture. Correlate clinically for point tenderness in this region. 3. Further evaluation with noncontrast CT pelvis to be considered. Electronically signed by: Angelo Juarez M.D. 03/25/2017 10:42 AM Dictated Date/Time: 03/25/2017 10:38 AM
--- NOTE | 2017-03-25 10:45 | DIAGNOSTIC IMAGING REPORT ---
CHEST 2 VIEWS ROUTINE CLINICAL HISTORY: 86 years-old Female presenting with WEAKNESS. TECHNIQUE: Portable upright AP view of the chest was obtained. COMPARISON: 08/26/2014. FINDINGS: Atherosclerosis of aortic arch. Tortuosity of the descending thoracic aorta. Cardiac silhouette remains enlarged. Right basilar opacity, the configuration of which is unchanged from prior exam and is compatible with atelectatic change adjacent to the moderate hiatal hernia. No large effusion or pneumothorax. Osseous structures normal. Upper abdomen normal. IMPRESSION: 1. No acute cardiopulmonary disease. 2. Cardiomegaly. Electronically signed by: Angelo Juarez M.D. 03/25/2017 10:43 AM Dictated Date/Time: 03/25/2017 10:42 AM
--- NOTE | 2017-03-25 10:51 | DIAGNOSTIC IMAGING REPORT ---
HEAD WITHOUT CONTRAST (CT) CLINICAL HISTORY: 86 years-old Female presenting with EVALUATE ALTERED MENTAL STATUS/WEAKNESS. TECHNIQUE: Multidetector CT imaging of the head was performed without the use of intravenous contrast. IV contrast: None. A dose lowering technique was used consistent with the principles of ALARA (as low as reasonably achievable). COMPARISON: 08/26/2014. CT DOSE (mGy.cm): The estimated cumulative dose is 1620.[address] cervical spine and CT lumbar spine. FINDINGS: Sling Operator topogram: Unremarkable. Proportional ventricular and sulcal prominence, likely age-related parenchymal volume loss. Periventricular and subcortical white matter hypoattenuation, nonspecific but likely indicative of chronic small vessel ischemic change. 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 No mass effect or midline shift. No hemorrhage or acute territorial infarct. No extra-axial fluid collection. Paranasal sinuses and mastoid air cells clear. Calvarium intact. IMPRESSION: 1. No acute intracranial pathology. 2. Chronic small vessels giving change in chronic infarct in the right frontal region. Electronically signed by: Angelo Juarez M.D. 03/25/2017 10:50 AM Dictated Date/Time: 03/25/2017 10:47 AM
--- NOTE | 2017-03-25 11:02 | DIAGNOSTIC IMAGING REPORT ---
CERVICAL SPINE W/O CLINICAL HISTORY: 86 years-old Female presenting with fall, bilateral leg weakness. TECHNIQUE: Multidetector CT of the cervical spine was performed without the use of intravenous contrast. IV contrast: None. A dose lowering technique was used consistent with the principles of ALARA (as low as reasonably achievable). COMPARISON: 08/26/2014. CT DOSE (mGy.cm): The estimated cumulative dose is 1620.86 mGy.cm. FINDINGS: Psychiatric Nursing Aide topogram: Unremarkable. Straightening of normal cervical lordosis, unchanged. This is likely degenerative in etiology. Multilevel degenerative changes with disc osteophyte complexes at nearly every level. Vertebral bodies maintain normal height and alignment. Intervertebral disc height loss at C4-5 and C5-6. No acute fracture or subluxation. Osseous neural foraminal narrowing noted at C4-5 and to a lesser degree at C5-6. No osseous spinal canal narrowing. Skull base intact. Regional soft tissues within normal limits. Lung apices clear. IMPRESSION: No acute osseous injury of the cervical spine. Electronically signed by: Angelo Juarez M.D. 03/25/2017 11:00 AM Dictated Date/Time: 03/25/2017 10:55 AM
--- NOTE | 2017-03-25 11:14 | DIAGNOSTIC IMAGING REPORT ---
LUMBAR SPINE WITHOUT CLINICAL HISTORY: 86 years-old Female presenting with fall. TECHNIQUE: Multidetector CT of the lumbar spine was performed without the use of intravenous contrast. IV contrast: None. A dose lowering technique was used consistent with the principles of ALARA (as low as reasonably achievable). COMPARISON: Correlation made to CT of the abdomen and pelvis from 2012. CT DOSE (mGy.cm): The estimated cumulative dose is 1620.[address] head and cervical spine. FINDINGS: Foil Spooler topogram: Unremarkable. Normal lumbar lordosis. S-shaped scoliotic curvature of the lumbar spine. Severe multilevel degenerative changes with disc height loss and vacuum disc phenomenon noted at every level. Vertebral body heights maintained. Degenerative endplate changes noted. Posterior osteophytosis likely with disc bulges mildly efface the ventral spinal canal to varying degrees. Facet arthropathy in combination with degenerative disc disease results in varying degrees of osseous neural foraminal narrowing greatest on the left at L5-S1. No acute fracture or subluxation. Degenerative changes of the sacroiliac joints. No convincing evidence of a sacral alar fracture. Atherosclerosis. 1.8 cm indeterminate left adrenal nodule with a density of 14 Hounsfield units. IMPRESSION: 1. No acute osseous injury of the lumbar spine. No evidence of sacral alar fracture. 2. Scoliosis with severe multilevel degenerative changes resulting in varying degrees of osseous neural foraminal narrowing most severe at L5-S1 and mild effacement of the ventral spinal canal secondary to posterior osteophytosis. 3. Indeterminate left adrenal 1.8 cm nodule. Statistically, this still most likely represents a benign adenoma. If there is clinical concern or known malignancy, further evaluation with dedicated CT or MR with adrenal protocol could be obtained. Electronically signed by: Angelo Juarez M.D. 03/25/2017 11:13 AM Dictated Date/Time: 03/25/2017 11:05 AM
[2017-03-25 11:39] LABS: MANUAL MICROSCOPIC REQUIRED? NO; REVIEW REQ? NO; URINE APPEARANCE CLEAR (CLEAR); URINE BILIRUBIN NEG (NEG); URINE COLOR YELLOW; URINE EPITHELIAL CELL AUTO 20-30 /lpf (0-5); URINE NITRITE NEG (NEG); URINE SPECIFIC GRAVITY 1.016 (1.000-1.030); UROBILINOGEN NEG (NEG)
--- NOTE | 2017-03-25 11:55 | DIAGNOSTIC IMAGING REPORT ---
PELVIS NO IV/ORAL CONT (CT) CLINICAL HISTORY: 86 years-old Female presenting with fall, concern for fracture on plain radiograph of the pelvis. TECHNIQUE: Multidetector CT of the pelvis was performed without the use of intravenous contrast. IV contrast: None. A dose lowering technique was used consistent with the principles of ALARA (as low as reasonably achievable). COMPARISON: Correlation made to plain radiographs of the pelvis performed earlier the same day. CT DOSE (mGy.cm): The estimated cumulative dose is 911.26 mGy.cm. FINDINGS: Senior C Developer topogram: Unremarkable. Evidence of a nondisplaced fracture of the left superior pubic ramus at the acetabulum (series 3 image 67). Additionally, minimally impacted fracture of the left inferior pubic ramus noted. No additional pelvic fracture is evident. Degenerative changes of the bilateral sacroiliac joints and lumbar spine. Sacral ala intact. No femoral neck fracture. Hip joints congruent. Pubic symphysis congruent. Soft tissues of the pelvis demonstrate presacral infiltration as well as extraperitoneal infiltration along the left pelvic sidewall compatible with hematoma. Midline ventral hernia secondary to diastases of the abdominis rectus. Two small bowel anastomoses. A colorectal anastomosis is also noted. No bowel obstruction. Bladder normal. Uterus surgically absent. Atherosclerosis with mild ectasia of the infrarenal abdominal aorta measuring up to 2.3 cm in maximal transverse dimension. IMPRESSION: 1. Nondisplaced fracture of the left superior pubic ramus and minimally impacted fracture of the left inferior pubic ramus. Associated small amount of extraperitoneal pelvic hematoma. 2. No sacral fracture. Electronically signed by: Angelo Juarez M.D. 03/25/2017 11:53 AM Dictated Date/Time: 03/25/2017 11:49 AM
[2017-03-25] MEDS ORDERED: PHYTONADIONE 5 MG TAB PO STA (13:24)
[2017-03-25] MEDS ORDERED: ONDANSETRON INJ 2 MG/ML 2 ML VIAL IV PRN (14:15)
[2017-03-25] MEDS ORDERED: MoRPHine SULFATE 2 MG/ML CARP IV PRN (14:15)
[2017-03-25] MEDS ORDERED: SULF800T23 PO (14:21)
[2017-03-25] MEDS ORDERED: NYSTATIN POWDER 15GM BTL EXT PRN (14:30)
--- NOTE | 2017-03-25 14:45 | History and Physical ---
History & Physical Date & Time of Service: Mar 25, 2017 at 14:22 Chief Complaint: FALL Primary Care Physician: Shaggy Hernandes D.O. History of Present Illness Source: patient, family, clinic records, hospital records 86 yo F presents with worsening L hip pain since yesterday in the early afternoon. She has a h/o fall one week ago at her personal long term. She fell after walking out to the nurses station and had appeared to staff to be altered. Workup revealed a UTI and she began treatment with Bactrim. She was ambulating without difficulty until this morning when there was another reported fall where staff found her on the floor. The patient states that she slid down into a wheelchair after finding that her L leg was stiff when she was getting out of bed. She states that despite the worsened L hip pain yesterday, she was able to ambulate without difficulty to dinner yesterday evening. CT scan in the ER today reveals a nondisplaced fracture of the L superior pubic ramus and minimally impacted fracture of the L inferior pubic ramus with evidence of a hematoma on the L pelvic sidewall. She otherwise denies any symptoms including no chest pain, shortness of breath, cough, fevers, chills, abdominal pain, nausea, vomiting, diarrhea, blood per rectum, headache, visual changes, difficulty speaking, swallowing, and no other stroke like symptoms, and no UTI symptoms including no hematuria, dysuria, flank pain, etc. She also denies numbness in her legs. She is having some difficulty bending her L leg and reports chronic neuropathic pain in her feet, but states that her current pain is localized to the L hip. She is therapeutic on her coumadin with an INR 2.6 today. 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 Luigi Jasso as outpatient. Family states no cardiac catheterization or stress test was performed when she left the hospital in 2014 and she was treated conservatively. She has some persistent ST elevations in the inferior leads, similar to prior EKG at that time. 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 Past Medical/Surgical History Medical Problems: (1) Acquired hypothyroidism Status: Chronic (2) Atrial fibrillation Status: Chronic (3) Benign essential hypertension Status: Chronic (4) Carcinoma of sigmoid colon Status: Resolved (5) H/O malignant neoplasm of endometrium Status: Chronic (6) H/O: CVA (cerebrovascular accident) Status: Chronic (7) Hyperlipidemia Status: Chronic (8) Hypothyroidism Status: Chronic (9) Peripheral neuropathy Status: Chronic (10) Urinary incontinence Status: Chronic Surgical Problems: (1) S/P NICK-BSO Status: Chronic (2) Status post cholecystectomy Status: Chronic Family History Insignificant due to old age Social History Smoking Status: Former Smoker Smokeless Tobacco Use: No Alcohol Use: none Drug Use: none Marital Status: Housing status: long-term Occupational Status: retired Immunizations History of Influenza Vaccine: Yes Influenza Vaccine Date: May 19, 2011 History of Tetanus Vaccine?: No History of Pneumococcal: No Pneumococcal Date: Jul 20, 2011 History of Hepatitis B Vaccine: No Multi-Drug Resistant Organisms History of MDRO: No Allergies Coded Allergies: No Known Allergies (Verified , 03/25/17) Home Medications Scheduled Ascorbic Acid (Vitamin C), 1 TAB PO BIDM Aspirin (Aspirin EC Low Dose), 81 MG PO QAM Atorvastatin (Atorvastatin Calcium), 80 MG PO PM Citalopram Hydrobromide (Celexa), 10 MG PO DAILY Gabapentin (Neurontin), 200 MG PO TID Levothyroxine Sodium (Levothyroxine Sodium), 100 MCG PO DAILY Metoprolol Tartrate (Lopressor), 25 MG PO BID Oxybutynin Chloride (Ditropan), 5 MG PO BID Sulfamethoxazole-Trimethoprim (Bactrim Ds 800MG/160MG), 1 TAB PO BID Warfarin Sod (Jantoven), 2.5 MG PO Q2D Warfarin Sod (Jantoven), 1 TAB PO Q2D Zolpidem Tartrate (Ambien), 5 MG PO HS [Analgesic Gel], 1 APPLN DIRECTED Scheduled PRN Acetaminophen (Qc Arthritis Pain Relief), 2 TABS PO BID PRN for Pain Docusate Sodium (Docusate Sodium), 1 CAP PO DAILY PRN for Constipation Nystatin (Topical) (Nystop), 1 APPLN TOP BID PRN for RED AREAS Review of Systems At least ten systems reviewed and negative except as indicated in HPI. Physical Exam Vital Signs Date Time Temp Pulse Resp B/P (MAP) Pulse Ox O2 Delivery O2 Flow Rate FiO2 03/25/17 13:30 76 20 03/25/17 13:00 73 20 92 Nasal Cannula 2.0 9/17/17 12:30 69 17 93 03/25/17 12:00 77 20 91 03/25/17 11:52 69 18 123/65 93 Nasal Cannula 2.0 03/25/17 11:51 123/65 03/25/17 11:00 96 15 03/25/17 09:57 93 Nasal Cannula 2.0 03/25/17 09:52 69 03/25/17 09:50 87 Room Air 03/25/17 09:04 36.7 80 18 107/65 87 Room Air General Appearance: WD/WN, no apparent distress Head: normocephalic, atraumatic Eyes: normal inspection, PERRL, sclerae normal ENT: normal ENT inspection, pharynx normal, + pertinent finding (Hard of hearing) Neck: supple, no adenopathy, no JVD, trachea midline Respiratory/Chest: lungs clear, normal breath sounds, no respiratory distress, no accessory muscle use Cardiovascular: no edema, no JVD, no murmur, normal peripheral pulses, + irregularly irregular Abdomen/GI: normal bowel sounds, non tender, soft Back: normal inspection, no CVA tenderness Extremities/Musculoskelatal: normal inspection, normal range of motion (No ecchymosis seen around L hip area. ), + pertinent finding (L medial ankle-small scab with minimal expected surrounding erythema, no signs of infection or drainage. 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 Knew Sept but could not tell the year) Skin: normal color, warm/dry Lymphatic: no adenopathy Diagnostics Laboratory Results 03/25/17 10:00 Red Blood Count 4.30, Mean Corpuscular Volume 92.8, Mean Corpuscular Hemoglobin 29.1, Mean Corpuscular Hemoglobin Concent 31.3, Mean Platelet Volume 10.1, Neutrophils (%) (Auto) 82.8, Lymphocytes (%) (Auto) 6.4, Monocytes (%) (Auto) 7.6, Eosinophils (%) (Auto) 2.4, Basophils (%) (Auto) 0.4, Neutrophils # (Auto) 4.50, Lymphocytes # (Auto) 0.35, Monocytes # (Auto) 0.41, Eosinophils # (Auto) 0.13, Basophils # (Auto) 0.02 03/25/17 10:00 Test 03/25/17 10:00 03/25/17 11:15 White Blood Count 5.43 K/uL (4.8-10.8) Red Blood Count 4.30 M/uL (4.2-5.4) Hemoglobin 12.5 g/dL (12.0-16.0) Hematocrit 39.9 % (37-47) Mean Corpuscular Volume 92.8 fL (80-100) Mean Corpuscular Hemoglobin 29.1 pg (25-34) Mean Corpuscular Hemoglobin Concent 31.3 g/dl (32-36) Platelet Count 266 K/uL (130-400) Mean Platelet Volume 10.1 fL (7.4-10.4) Neutrophils (%) (Auto) 82.8 % Lymphocytes (%) (Auto) 6.4 % Monocytes (%) (Auto) 7.6 % Eosinophils (%) (Auto) 2.4 % Basophils (%) (Auto) 0.4 % Neutrophils # (Auto) 4.50 K/uL (1.4-6.5) Lymphocytes # (Auto) 0.35 K/uL (1.2-3.4) Monocytes # (Auto) 0.41 K/uL (0.11-0.59) Eosinophils # (Auto) 0.13 K/uL (0-0.5) Basophils # (Auto) 0.02 K/uL (0-0.2) RDW Standard Deviation 49.8 fL (36.4-46.3) RDW Coefficient of Variation 14.7 % (11.5-14.5) Immature Granulocyte % (Auto) 0.4 % Immature Granulocyte # (Auto) 0.02 K/uL (0.00-0.02) Prothrombin Time 28.8 SECONDS (9.0-12.0) Prothromb Time International Ratio 2.6 (0.9-1.1) Activated Partial Thromboplast Time 33.4 SECONDS (21.0-31.0) Partial Thromboplastin Ratio 1.3 Anion Gap 7.0 mmol/L (3-11) Estimated GFR () 58.3 Estimated GFR (Non- 50.3 BUN/Creatinine Ratio 19.5 (10-20) Calcium Level 8.8 mg/dl (8.5-10.1) Magnesium Level 2.0 mg/dl (1.8-2.4) Total Bilirubin 0.4 mg/dl (0.2-1) Direct Bilirubin 0.2 mg/dl (0-0.2) Aspartate Amino Transf (AST/SGOT) 26 U/L (15-37) Alanine Aminotransferase (ALT/SGPT) 28 U/L (12-78) Alkaline Phosphatase 129 U/L (45-117) Total Creatine Kinase 211 U/L (26-192) Creatine Kinase MB 4.0 ng/ml (0.5-3.6) Creatine Kinase MB Ratio 1.9 (0-3.0) Troponin I 0.029 ng/ml (0-0.045) Total Protein 6.5 gm/dl (6.4-8.2) Albumin 3.1 gm/dl (3.4-5.0) Thyroid Stimulating Hormone (TSH) 0.145 uIu/ml (0.300-4.500) Free Thyroxine 1.25 ng/dl (0.80-1.60) Urine Color YELLOW Urine Appearance CLEAR (CLEAR) Urine pH 6.0 (4.5-7.5) Urine Specific [place] 1.016 (1.000-1.030) Urine Protein NEG (NEG) Urine Glucose (UA) NEG (NEG) Urine Ketones NEG (NEG) Urine Occult Blood NEG (NEG) Urine Nitrite NEG (NEG) Urine Bilirubin NEG (NEG) Urine Urobilinogen NEG (NEG) Urine Leukocyte Esterase SMALL (NEG) Urine WBC (Auto) 5-10 /hpf (0-5) Urine RBC (Auto) 10-30 /hpf (0-4) Urine Hyaline Casts (Auto) 1-5 /lpf (0-5) Urine Epithelial Cells (Auto) 20-30 /lpf (0-5) Urine Bacteria (Auto) NEG (NEG) Results Past 24 Hours Test 03/25/17 10:00 03/25/17 11:15 Range/Units White Blood Count 5.43 4.8-10.8 K/uL Red Blood Count 4.30 4.2-5.4 M/uL Hemoglobin 12.5 12.0-16.0 g/dL Hematocrit 39.9 37-47 % Mean Corpuscular Volume 92.8 80-100 fL Mean Corpuscular Hemoglobin 29.1 25-34 pg Mean Corpuscular Hemoglobin Concent 31.3 32-36 g/dl Platelet Count 266 130-400 K/uL Mean Platelet Volume 10.1 7.4-10.4 fL Neutrophils (%) (Auto) 82.8 % Lymphocytes (%) (Auto) 6.4 % Monocytes (%) (Auto) 7.6 % Eosinophils (%) (Auto) 2.4 % Basophils (%) (Auto) 0.4 % Neutrophils # (Auto) 4.50 1.4-6.5 K/uL Lymphocytes # (Auto) 0.35 1.2-3.4 K/uL Monocytes # (Auto) 0.41 0.11-0.59 K/uL Eosinophils # (Auto) 0.13 0-0.5 K/uL Basophils # (Auto) 0.02 0-0.2 K/uL RDW Standard Deviation 49.8 36.4-46.3 fL RDW Coefficient of Variation 14.7 11.5-14.5 % Immature Granulocyte % (Auto) 0.4 % Immature Granulocyte # (Auto) 0.02 0.00-0.02 K/uL Prothrombin Time 28.8 9.0-12.0 SECONDS Prothromb Time International Ratio 2.6 0.9-1.1 Activated Partial Thromboplast Time 33.4 21.0-31.0 SECONDS Partial Thromboplastin Ratio 1.3 Sodium Level 139 136-145 mmol/L Potassium Level 4.0 3.5-5.1 mmol/L Chloride Level 107 98-107 mmol/L Carbon Dioxide Level 25 21-32 mmol/L Anion Gap 7.0 3-11 mmol/L Blood Urea Nitrogen 20 7-18 mg/dl Creatinine 1.00 0.60-1.20 mg/dl Estimated GFR () 58.3 Estimated GFR (Non- 50.3 BUN/Creatinine Ratio 19.5 10-20 Random Glucose 108 70-99 mg/dl Calcium Level 8.8 8.5-10.1 mg/dl Magnesium Level 2.0 1.8-2.4 mg/dl Total Bilirubin 0.4 0.2-1 mg/dl Direct Bilirubin 0.2 0-0.2 mg/dl Aspartate Amino Transf (AST/SGOT) 26 15-37 U/L Alanine Aminotransferase (ALT/SGPT) 28 12-78 U/L Alkaline Phosphatase 129 45-117 U/L Total Creatine Kinase 211 26-192 U/L Creatine Kinase MB 4.0 0.5-3.6 ng/ml Creatine Kinase MB Ratio 1.9 0-3.0 Troponin I 0.029 0-0.045 ng/ml Total Protein 6.5 6.4-8.2 gm/dl Albumin 3.1 3.4-5.0 gm/dl Thyroid Stimulating Hormone (TSH) 0.145 0.300-4.500 uIu/ml Free Thyroxine 1.25 0.80-1.60 ng/dl Urine Color YELLOW Urine Appearance CLEAR CLEAR Urine pH 6.0 4.5-7.5 Urine Specific [place] 1.016 1.000-1.030 Urine Protein NEG NEG Urine Glucose (UA) NEG NEG Urine Ketones NEG NEG Urine Occult Blood NEG NEG Urine Nitrite NEG NEG Urine Bilirubin NEG NEG Urine Urobilinogen NEG NEG Urine Leukocyte Esterase SMALL NEG Urine WBC (Auto) 5-10 0-5 /hpf Urine RBC (Auto) 10-30 0-4 /hpf Urine Hyaline Casts (Auto) 1-5 0-5 /lpf Urine Epithelial Cells (Auto) 20-30 0-5 /lpf Urine Bacteria (Auto) NEG NEG Diagnostic Radiology PELVIS NO IV/ORAL CONT (CT) CLINICAL HISTORY: 86 years-old Female presenting with fall, concern for fracture on plain radiograph of the pelvis. TECHNIQUE: Multidetector CT of the pelvis was performed without the use of intravenous contrast. IV contrast: None. A dose lowering technique was used consistent with the principles of ALARA (as low as reasonably achievable). COMPARISON: Correlation made to plain radiographs of the pelvis performed earlier the same day. CT DOSE (mGy.cm): The estimated cumulative dose is 911.26 mGy.cm. FINDINGS: Medical Coding Instructor topogram: Unremarkable. Evidence of a nondisplaced fracture of the left superior pubic ramus at the acetabulum (series 3 image 67). Additionally, minimally impacted fracture of the left inferior pubic ramus noted. No additional pelvic fracture is evident. Degenerative changes of the bilateral sacroiliac joints and lumbar spine. Sacral ala intact. No femoral neck fracture. Hip joints congruent. Pubic symphysis congruent. Soft tissues of the pelvis demonstrate presacral infiltration as well as extraperitoneal infiltration along the left pelvic sidewall compatible with hematoma. Midline ventral hernia secondary to diastases of the abdominis rectus. Two small bowel anastomoses. A colorectal anastomosis is also noted. No bowel obstruction. Bladder normal. Uterus surgically absent. Atherosclerosis with mild ectasia of the infrarenal abdominal aorta measuring up to 2.3 cm in maximal transverse dimension. IMPRESSION: 1. Nondisplaced fracture of the left superior pubic ramus and minimally impacted fracture of the left inferior pubic ramus. Associated small amount of extraperitoneal pelvic hematoma. 2. No sacral fracture. CERVICAL SPINE W/O CLINICAL HISTORY: 86 years-old Female presenting with fall, bilateral leg weakness. TECHNIQUE: Multidetector CT of the cervical spine was performed without the use of intravenous contrast. IV contrast: None. A dose lowering technique was used consistent with the principles of ALARA (as low as reasonably achievable). COMPARISON: 08/26/2014. CT DOSE (mGy.cm): The estimated cumulative dose is 1620.86 mGy.cm. FINDINGS: Medical Coding Instructor topogram: Unremarkable. Straightening of normal cervical lordosis, unchanged. This is likely degenerative in etiology. Multilevel degenerative changes with disc osteophyte complexes at nearly every level. Vertebral bodies maintain normal height and alignment. Intervertebral disc height loss at C4-5 and C5-6. No acute fracture or subluxation. Osseous neural foraminal narrowing noted at C4-5 and to a lesser degree at C5-6. No osseous spinal canal narrowing. Skull base intact. Regional soft tissues within normal limits. Lung apices clear. IMPRESSION: No acute osseous injury of the cervical spine. CHEST 2 VIEWS ROUTINE CLINICAL HISTORY: 86 years-old Female presenting with WEAKNESS. TECHNIQUE: Portable upright AP view of the chest was obtained. COMPARISON: 08/26/2014. FINDINGS: Atherosclerosis of aortic arch. Tortuosity of the descending thoracic aorta. Cardiac silhouette remains enlarged. Right basilar opacity, the configuration of which is unchanged from prior exam and is compatible with atelectatic change adjacent to the moderate hiatal hernia. No large effusion or pneumothorax. Osseous structures normal. Upper abdomen normal. IMPRESSION: 1. No acute cardiopulmonary disease. 2. Cardiomegaly. HEAD WITHOUT CONTRAST (CT) CLINICAL HISTORY: 86 years-old Female presenting with EVALUATE ALTERED MENTAL STATUS/WEAKNESS. TECHNIQUE: Multidetector CT imaging of the head was performed without the use of intravenous contrast. IV contrast: None. A dose lowering technique was used consistent with the principles of ALARA (as low as reasonably achievable). COMPARISON: 08/26/2014. CT DOSE (mGy.cm): The estimated cumulative dose is 1620.[address] cervical spine and CT lumbar spine. FINDINGS: Medical Coding Instructor topogram: Unremarkable. Proportional ventricular and sulcal prominence, likely age-related parenchymal volume loss. Periventricular and subcortical white matter hypoattenuation, nonspecific but likely indicative of chronic small vessel ischemic change. 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 No mass effect or midline shift. No hemorrhage or acute territorial infarct. No extra-axial fluid collection. Paranasal sinuses and mastoid air cells clear. Calvarium intact. IMPRESSION: 1. No acute intracranial pathology. 2. Chronic small vessels giving change in chronic infarct in the right frontal region. LEFT PELVIS/UNILATERAL HIP 2-3VIEWS CLINICAL HISTORY: 86 years-old Female presenting with fall. TECHNIQUE: Single frontal view of the pelvis and frontal and oblique views of the left hip were obtained. COMPARISON: Correlation made to CT of the pelvis from 2011. FINDINGS: Irregularity of the inferior left pubic ramus and left superior pubic ramus immediately adjacent to the acetabulum concerning for nondisplaced fractures. No evidence of a femoral neck fracture. Hip joints congruent. Extensive degenerative changes of the lower lumbar spine noted. The arcuate lines on the left may be disrupted raising concern for sacral fracture. Numerous surgical clips noted. Moderate stool are none. Atherosclerosis. IMPRESSION: 1. Findings concerning for nondisplaced fractures of the left superior and inferior pubic rami. 2. Additionally, apparent disruption of arcuate lines along the left sacral ala raise concern for left sacral fracture. Correlate clinically for point tenderness in this region. 3. Further evaluation with noncontrast CT pelvis to be considered. LUMBAR SPINE WITHOUT CLINICAL HISTORY: 86 years-old Female presenting with fall. TECHNIQUE: Multidetector CT of the lumbar spine was performed without the use of intravenous contrast. IV contrast: None. A dose lowering technique was used consistent with the principles of ALARA (as low as reasonably achievable). COMPARISON: Correlation made to CT of the abdomen and pelvis from 2012. CT DOSE (mGy.cm): The estimated cumulative dose is 1620.[address] head and cervical spine. FINDINGS: Medical Coding Instructor topogram: Unremarkable. Normal lumbar lordosis. S-shaped scoliotic curvature of the lumbar spine. Severe multilevel degenerative changes with disc height loss and vacuum disc phenomenon noted at every level. Vertebral body heights maintained. Degenerative endplate changes noted. Posterior osteophytosis likely with disc bulges mildly efface the ventral spinal canal to varying degrees. Facet arthropathy in combination with degenerative disc disease results in varying degrees of osseous neural foraminal narrowing greatest on the left at L5-S1. No acute fracture or subluxation. Degenerative changes of the sacroiliac joints. No convincing evidence of a sacral alar fracture. Atherosclerosis. 1.8 cm indeterminate left adrenal nodule with a density of 14 Hounsfield units. IMPRESSION: 1. No acute osseous injury of the lumbar spine. No evidence of sacral alar fracture. 2. Scoliosis with severe multilevel degenerative changes resulting in varying degrees of osseous neural foraminal narrowing most severe at L5-S1 and mild effacement of the ventral spinal canal secondary to posterior osteophytosis. 3. Indeterminate left adrenal 1.8 cm nodule. Statistically, this still most likely represents a benign adenoma. If there is clinical concern or known malignancy, further evaluation with dedicated CT or MR with adrenal protocol could be obtained. No change from prior EKG Impression Assessment and Plan 86 yo F with pelvic fracture s/p mechanical fall from standing. 1. L hip pain 2/2 pelvic fracture s/p mechanical fall-Ortho consulted for recs. PT/OT also consulted. Left her OOB with assist; defer to Ortho to change. Vitamin K given (2.5mg PO) in ER for hematoma present with therapeutic INR. Pain control with scheduled Tylenol. Ultram or morphine IV for breakthrough pain as needed. 2. Hypoxia-pt is asymptomatic and denies recent cough or breathing issues. She was 87% on room air initially in ER and is currently on 2L via NC without any distress or conversational dyspnea. Uncertain for cause although PE is possible. Without tachycardia or shortness of breath would defer workup at this time, unless clinical picture deteriorates and would try to wean her as the day progresses. 3. chronic atrial fibrillation-cont metoprolol for rate control. Hold coumadin at this time. In setting of multiple falls, this may need to be held indefinitely, but would defer decision to her Twister Tender 4. presumed CAD-evidence of TX in 2014 on EKG-uncertain workup as these records are not available. Cont medical management of CAD with statin, ASA, BB. Records requested from Dr. Jasso's office 5. Adrenal nodule-incidental finding; requires outpatient workup. 6. Acute UTI 2/2 Morganella-continue Bactrim that was started as outpatient 6. h/o CVA-residual LUE and LLE weakness 7. HTN 8. Peripheral neuropathy 9. Hypothyroidism-stable, cont current Synthroid DVT proph: vit K given for INR therapeutic in setting of hematoma, SCDs to thigh at this time Full code per family who is at bedside Dispo- inpatient, pending Ortho and therapy evaluations Bing Williamson, [facility] Level of Care Telemetry Resuscitation Status FULL RESUSCITATION VTE Prophylaxis VTE Risk Assessment Done? Y/N: Yes Risk Level: Moderate Given or contraindicated: SCD's, Contraindicated Social Service Consult Lives in Personal Care
[2017-03-25 14:54] VITALS: BP 126/58; PULSE 70; TEMP 36.5; O2SAT 95; Ht 157.5 cm; Wt 76.3 kg
[2017-03-25] MEDS: ASCORBIC ACID 500 MG TAB PO SCH (16:04)
[2017-03-25] MEDS: TRAMADOL HCL 50 MG TAB PO PRN (16:04)
[2017-03-25 16:05] VITALS: PULSE 83; TEMP 36.8; O2SAT 96
--- NOTE | 2017-03-25 16:05 | Orthopedic Consultation ---
Orthopedic Consultation Date of Consultation: Mar 25, 2017. Attending Physician: Pelvic fracture History of Present Illness Patient is a 86 yo female who reported falling at 7:30 this morning. She was accompanied by her son and was seen at bedside. The son reports increased frequency in falls of recent. 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 She currently denies pain when at rest but does have pain when ambulating around the left hip which prompted her to come in. 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 Denies F/C/N /V/CP/SOB. Past Medical/Surgical History Medical Problems: (1) Fracture of left pelvis Status: Acute (2) Weakness Status: Acute Family History Insignificant due to old age Social History Smoking Status: Former Smoker Smokeless Tobacco Use: No Alcohol Use: none Drug Use: none Marital Status: Housing Status: lives alone Occupation Status: retired Allergies Coded Allergies: No Known Allergies (Verified , 03/25/17) Home Medications Scheduled Ascorbic Acid (Vitamin C), 1 TAB PO BIDM Aspirin (Aspirin EC Low Dose), 81 MG PO QAM Atorvastatin (Atorvastatin Calcium), 80 MG PO PM Citalopram Hydrobromide (Celexa), 10 MG PO DAILY Gabapentin (Neurontin), 200 MG PO TID Levothyroxine Sodium (Levothyroxine Sodium), 100 MCG PO DAILY Metoprolol Tartrate (Lopressor), 25 MG PO BID Oxybutynin Chloride (Ditropan), 5 MG PO BID Sulfamethoxazole-Trimethoprim (Bactrim Ds 800MG/160MG), 1 TAB PO BID Warfarin Sod (Jantoven), 2.5 MG PO Q2D Warfarin Sod (Jantoven), 1 TAB PO Q2D Zolpidem Tartrate (Ambien), 5 MG PO HS [Analgesic Gel], 1 APPLN DIRECTED Scheduled PRN Acetaminophen (Qc Arthritis Pain Relief), 2 TABS PO BID PRN for Pain Docusate Sodium (Docusate Sodium), 1 CAP PO DAILY PRN for Constipation Nystatin (Topical) (Nystop), 1 APPLN TOP BID PRN for RED AREAS Current Inpatient Medications Current Inpatient Medications Medications (Trade) Dose Ordered Sig/Josefina Route Start Time Stop Time Status Last Admin Dose Admin Ondansetron HCl (Zofran Inj) 4 mg Q6H PRN IV 03/25/17 14:15 04/24/17 14:14 Morphine Sulfate (MoRPHine SULFATE INJ) 2 mg Q4H PRN IV 03/25/17 14:15 04/08/17 14:14 Polyethylene (Miralax Powder Packet) 17 gm DAILY PRN PO 03/25/17 14:15 04/24/17 14:14 Acetaminophen (Tylenol Tab) 1,000 mg Q8 PO 03/25/17 22:00 04/24/17 21:59 Tramadol HCl (Ultram Tab) 50 mg Q6H PRN PO 03/25/17 14:15 04/24/17 14:14 Ascorbic Acid (Vitamin C Tab) 500 mg BIDM PO 03/25/17 16:45 04/24/17 17:59 Aspirin (Ecotrin Tab) 81 mg QAM PO 03/26/17 09:00 04/25/17 08:59 Atorvastatin Calcium (Lipitor Tab) 80 mg PM PO 03/25/17 21:00 04/24/17 20:59 Citalopram Hydrobromide (celeXA TAB) 10 mg DAILY PO 03/26/17 09:00 04/25/17 08:59 Gabapentin (Neurontin Cap) 200 mg TID PO 03/25/17 21:00 04/24/17 20:59 Levothyroxine Sodium (Synthroid Tab) 100 mcg DAILYBB PO 03/26/17 06:00 04/25/17 05:59 Metoprolol Tartrate (Lopressor Tab) 25 mg BID PO 03/25/17 21:00 04/24/17 20:59 Nystatin (Mycostatin Powder) 1 appln BID PRN EXT 03/25/17 14:30 04/24/17 14:29 Docusate Sodium (coLACE CAP) 100 mg BID PRN PO 03/25/17 14:30 04/24/17 14:29 Trimethoprim/ Sulfamethoxazole (Septra Ds 800/ 160MG Tab) 1 tab BID PO 03/25/17 21:00 03/30/17 20:59 Review of Systems At least 10 systems reviewed and negative except as indicated in HPI Physical Exam Date Time Temp Pulse Resp B/P (MAP) Pulse Ox O2 Delivery O2 Flow Rate FiO2 03/25/17 14:54 36.5 70 18 126/58 95 Room Air 9/17/17 14:25 18 95 03/25/17 13:30 76 20 03/25/17 13:00 73 20 92 Nasal Cannula 2.0 03/25/17 12:30 69 17 93 03/25/17 12:00 77 20 91 03/25/17 11:52 69 18 123/65 93 Nasal Cannula 2.0 03/25/17 11:51 123/65 03/25/17 11:00 96 15 03/25/17 09:57 93 Nasal Cannula 2.0 03/25/17 09:52 69 03/25/17 09:50 87 Room Air 03/25/17 09:04 36.7 80 18 107/65 87 Room Air AOx3, NAD Well nourished B/L UE NVSI +M/R/U/AIN/PIN SILT grossly, +2 radial pulse, 5/5 security specialist strength, full painless ROM of wrist, elbows and shoulders. B/L LE NVSI +EHL/FHL/TA/GS SILT grossly, +2 DP Pulse, CR < 2 seconds, compartments soft NT, skin intact, +TTP left GT No tenderness to palpation to lumbar spine or sacrum. Laboratory Results Last 24 Hours Test 03/25/17 10:00 03/25/17 11:15 White Blood Count 5.43 K/uL Red Blood Count 4.30 M/uL Hemoglobin 12.5 g/dL Hematocrit 39.9 % Mean Corpuscular Volume 92.8 fL Mean Corpuscular Hemoglobin 29.1 pg Mean Corpuscular Hemoglobin Concent 31.3 g/dl Platelet Count 266 K/uL Mean Platelet Volume 10.1 fL Neutrophils (%) (Auto) 82.8 % Lymphocytes (%) (Auto) 6.4 % Monocytes (%) (Auto) 7.6 % Eosinophils (%) (Auto) 2.4 % Basophils (%) (Auto) 0.4 % Neutrophils # (Auto) 4.50 K/uL Lymphocytes # (Auto) 0.35 K/uL Monocytes # (Auto) 0.41 K/uL Eosinophils # (Auto) 0.13 K/uL Basophils # (Auto) 0.02 K/uL RDW Standard Deviation 49.8 fL RDW Coefficient of Variation 14.7 % Immature Granulocyte % (Auto) 0.4 % Immature Granulocyte # (Auto) 0.02 K/uL Prothrombin Time 28.8 SECONDS Prothromb Time International Ratio 2.6 Activated Partial Thromboplast Time 33.4 SECONDS Partial Thromboplastin Ratio 1.3 Sodium Level 139 mmol/L Potassium Level 4.0 mmol/L Chloride Level 107 mmol/L Carbon Dioxide Level 25 mmol/L Anion Gap 7.0 mmol/L Blood Urea Nitrogen 20 mg/dl Creatinine 1.00 mg/dl Estimated GFR () 58.3 Estimated GFR (Non- 50.3 BUN/Creatinine Ratio 19.5 Random Glucose 108 mg/dl Calcium Level 8.8 mg/dl Magnesium Level 2.0 mg/dl Total Bilirubin 0.4 mg/dl Direct Bilirubin 0.2 mg/dl Aspartate Amino Transf (AST/SGOT) 26 U/L Alanine Aminotransferase (ALT/SGPT) 28 U/L Alkaline Phosphatase 129 U/L Total Creatine Kinase 211 U/L Creatine Kinase MB 4.0 ng/ml Creatine Kinase MB Ratio 1.9 Troponin I 0.029 ng/ml Total Protein 6.5 gm/dl Albumin 3.1 gm/dl Thyroid Stimulating Hormone (TSH) 0.145 uIu/ml Free Thyroxine 1.25 ng/dl Urine Color YELLOW Urine Appearance CLEAR Urine pH 6.0 Urine Specific [place] 1.016 Urine Protein NEG Urine Glucose (UA) NEG Urine Ketones NEG Urine Occult Blood NEG Urine Nitrite NEG Urine Bilirubin NEG Urine Urobilinogen NEG Urine Leukocyte Esterase SMALL Urine WBC (Auto) 5-10 /hpf Urine RBC (Auto) 10-30 /hpf Urine Hyaline Casts (Auto) 1-5 /lpf Urine Epithelial Cells (Auto) 20-30 /lpf Urine Bacteria (Auto) NEG Assessment & Plan 86 yo Female with Left Superior and inferior pubic rami fractures -No orthopedic intervention at this time -WBAT B/L LE -PT/OT -Pain management -Walker Thank you for the consult. Results XR Pelvis/Left hip: Sup/Inf pubic rami fracture CT Pelvis: 1. Nondisplaced fracture of the left superior pubic ramus and minimally impacted fracture of the left inferior pubic ramus. Associated small amount of extraperitoneal pelvic hematoma. 2. No sacral fracture.
[2017-03-25] MEDS: POLYETHYLENE (MIRALAX) 17 GM PACK PO PRN (16:30)
[2017-03-25] MEDS: DOCUSATE SODIUM 100 MG CAP PO PRN (16:30)
[2017-03-25 19:36] VITALS: BP 124/61; PULSE 87; TEMP 36.7; O2SAT 96
[2017-03-25] MEDS: ATORVASTATIN 40 MG TAB PO SCH (20:07)
[2017-03-25] MEDS: SULFAMETHOXAZOLE/TRIMETHOPRIM DS 800/160MG TAB PO SCH (20:07)
[2017-03-25] MEDS: METOPROLOL TARTRATE 25 MG TAB PO SCH (20:07)
[2017-03-25] MEDS: GABAPENTIN 100 MG CAP PO SCH (20:07)
[2017-03-25] MEDS: ACETAMINOPHEN 500 MG TAB PO SCH (21:35)
[2017-03-26] VITALS (7 sets, daily range): BP systolic 90–157; BP diastolic 51–92; PULSE 64–76; TEMP 36.5–36.9; O2SAT 90–94
[2017-03-26] MEDS: ACETAMINOPHEN 500 MG TAB PO SCH ×3 (05:27→21:31)
[2017-03-26] MEDS ORDERED: LEVOTHYROXINE 100 MCG TAB PO SCH (06:00)
[2017-03-26 06:59] LABS: HEMATOCRIT 38.4 % (37-47); MEAN CELL VOLUME 94.1 fL (80-100); MEAN CORPUSCULAR HEMOGLOBIN 28.9 pg (25-34); MEAN CORPUSCULAR HGB CONC 30.7 g/dl (32-36); MEAN PLATELET VOLUME 9.8 fL (7.4-10.4); PLATELET COUNT 226 K/uL (130-400); RED BLOOD COUNT 4.08 M/uL (4.2-5.4); WHITE BLOOD COUNT 3.75 K/uL (4.8-10.8)
[2017-03-26 07:04] LABS: PROTHROMBIN TIME (PATIENT) 21.9 SECONDS (9.0-12.0)
[2017-03-26 07:34] LABS: BUN/CREATININE RATIO 16.2 (10-20); CALCIUM 8.5 mg/dl (8.5-10.1); CREATININE 1.2 mg/dl (0.60-1.20); POTASSIUM 4.2 mmol/L (3.5-5.1)
[2017-03-26] MEDS: CITALOPRAM 20 MG TAB PO SCH (08:00)
[2017-03-26] MEDS: ASPIRIN 81 MG ECTAB PO SCH (08:00)
[2017-03-26] MEDS: GABAPENTIN 100 MG CAP PO SCH ×3 (08:01→19:45)
[2017-03-26] MEDS: ASCORBIC ACID 500 MG TAB PO SCH ×2 (08:01→17:43)
[2017-03-26] MEDS: SULFAMETHOXAZOLE/TRIMETHOPRIM DS 800/160MG TAB PO SCH ×2 (08:01→19:45)
[2017-03-26] MEDS: METOPROLOL TARTRATE 25 MG TAB PO SCH ×2 (08:02→19:46)
--- NOTE | 2017-03-26 08:41 | Orthopedic Progress Note ---
Orthopedic Progress Note Date of Service Mar 26, 2017. Subjective Reports: complaints, Denies: chest pain, SOB, nausea / vomiting, light headedness, calf pain Additional Notes: HAVING PAIN WITH MOVEMENT. HAS NOT BEEN UP OUT OF BED. Objective calves soft nontender, N/V intact, hip located, capillary refill less than 2 sec., A&O x3, toes mobile Date Time Temp Pulse Resp B/P (MAP) Pulse Ox O2 Delivery O2 Flow Rate FiO2 03/26/17 07:57 36.9 70 20 137/59 (85) 92 Room Air 0.0 03/26/17 04:00 Nasal Cannula 3.0 03/26/17 03:49 36.7 64 18 104/53 (70) 94 Nasal Cannula 3.0 03/26/17 00:00 36.7 68 20 98/51 (67) 93 Nasal Cannula 3.0 03/25/17 23:37 Nasal Cannula 3.0 03/25/17 20:03 Room Air 03/25/17 19:36 36.7 87 18 124/61 (82) 96 03/25/17 16:05 36.8 83 18 96 03/25/17 16:00 Room Air 03/25/17 14:54 36.5 70 18 126/58 95 Room Air 03/25/17 14:25 18 95 03/25/17 13:30 76 20 03/25/17 13:00 73 20 92 Nasal Cannula 2.0 03/25/17 12:30 69 17 93 03/25/17 12:00 77 20 91 03/25/17 11:52 69 18 123/65 93 Nasal Cannula 2.0 03/25/17 11:51 123/65 03/25/17 11:00 96 15 03/25/17 09:57 93 Nasal Cannula 2.0 03/25/17 09:52 69 03/25/17 09:50 87 Room Air 03/25/17 09:04 36.7 80 18 107/65 87 Room Air Laboratory Results 24 Hours: Test 03/25/17 10:00 03/26/17 06:29 White Blood Count 5.43 K/uL Red Blood Count 4.30 M/uL Hemoglobin 12.5 g/dL 11.8 g/dL Hematocrit 39.9 % 38.4 % Mean Corpuscular Volume 92.8 fL Mean Corpuscular Hemoglobin 29.1 pg Mean Corpuscular Hemoglobin Concent 31.3 g/dl Platelet Count 266 K/uL Mean Platelet Volume 10.1 fL Neutrophils (%) (Auto) 82.8 % Lymphocytes (%) (Auto) 6.4 % Monocytes (%) (Auto) 7.6 % Eosinophils (%) (Auto) 2.4 % Basophils (%) (Auto) 0.4 % Neutrophils # (Auto) 4.50 K/uL Lymphocytes # (Auto) 0.35 K/uL Monocytes # (Auto) 0.41 K/uL Eosinophils # (Auto) 0.13 K/uL Basophils # (Auto) 0.02 K/uL Prothromb Time International Ratio 2.6 2.0 Prothrombin Time 28.8 SECONDS 21.9 SECONDS Assessment & Plan Assessment: LEFT SUPERIOR/INFERIOR PUBIC RAMI FRACTURES Plan: PT/OT WBAT WITH WALKER DISPOSITION- RETURN TO SNF WHEN MEDICALLY STABLE. ORTHOPEDICALLY STABLE. WILL SIGN OFF FOLLOW UP WITH DR. HERNANDEZ @[facility] [place] IN 4 WEEKS. [phone] Inhouse Planning Pain Management: Ultram, PO Tylenol DVT Prophylaxis: TEDs, SCDs
--- NOTE | 2017-03-26 08:43 | Consultant Recommendations ---
Mud Jack Operator Recommendations Date of Service Mar 26, 2017. Mud Jack Operator Recommendations Weight bearing as tolerated with walker Pain management Follow up with Dr. Rowe at [facility] in 4 weeks [phone]
[2017-03-26] MEDS: TRAMADOL HCL 50 MG TAB PO PRN ×2 (10:22→19:45)
--- NOTE | 2017-03-26 13:33 | Progress Note ---
Subjective Date of Service: Mar 26, 2017. Subjective Pt evaluation today including: conversation w/ patient, physical exam, lab review, review of studies, review of inpatient medication list Saw/examined the patient in room 204 Pain at the L hip/pelvic area States she was just weak and fell Improves with pain medications No other issues to note Problem List Medical Problems: (1) Fracture of left pelvis Status: Acute (2) Weakness Status: Acute Review of Systems Constitutional: No fever, No chills Respiratory: No cough, No shortness of breath Cardiac: No chest pain Abdomen: No pain, No nausea, No vomiting, No diarrhea Musculoskeletal: + joint pain Medications Current Inpatient Medications Medications (Trade) Dose Ordered Sig/Josefina Route Start Time Stop Time Status Last Admin Dose Admin Ondansetron HCl (Zofran Inj) 4 mg Q6H PRN IV 03/25/17 14:15 04/24/17 14:14 Morphine Sulfate (MoRPHine SULFATE INJ) 2 mg Q4H PRN IV 03/25/17 14:15 04/08/17 14:14 Polyethylene (Miralax Powder Packet) 17 gm DAILY PRN PO 03/25/17 14:15 04/24/17 14:14 03/25/17 16:30 17 GM Acetaminophen (Tylenol Tab) 1,000 mg Q8 PO 03/25/17 22:00 04/24/17 21:59 03/26/17 05:27 1,000 MG Tramadol HCl (Ultram Tab) 50 mg Q6H PRN PO 03/25/17 14:15 04/24/17 14:14 03/26/17 10:22 50 MG Ascorbic Acid (Vitamin C Tab) 500 mg BIDM PO 03/25/17 16:45 04/24/17 17:59 03/26/17 08:01 500 MG Aspirin (Ecotrin Tab) 81 mg QAM PO 03/26/17 09:00 04/25/17 08:59 03/26/17 08:00 81 MG Atorvastatin Calcium (Lipitor Tab) 80 mg PM PO 03/25/17 21:00 04/24/17 20:59 03/25/17 20:07 80 MG Citalopram Hydrobromide (celeXA TAB) 10 mg DAILY PO 03/26/17 09:00 04/25/17 08:59 03/26/17 08:00 10 MG Gabapentin (Neurontin Cap) 200 mg TID PO 03/25/17 21:00 04/24/17 20:59 03/26/17 08:01 200 MG Levothyroxine Sodium (Synthroid Tab) 100 mcg DAILYBB PO 03/26/17 06:00 04/25/17 05:59 03/26/17 05:27 100 MCG Metoprolol Tartrate (Lopressor Tab) 25 mg BID PO 03/25/17 21:00 04/24/17 20:59 03/26/17 08:02 25 MG Nystatin (Mycostatin Powder) 1 appln BID PRN EXT 03/25/17 14:30 04/24/17 14:29 Docusate Sodium (coLACE CAP) 100 mg BID PRN PO 03/25/17 14:30 04/24/17 14:29 03/25/17 16:30 100 MG Trimethoprim/ Sulfamethoxazole (Septra Ds 800/ 160MG Tab) 1 tab BID PO 03/25/17 21:00 03/30/17 20:59 03/26/17 08:01 1 TAB Objective Vital Signs Date Time Temp Pulse Resp B/P (MAP) Pulse Ox O2 Delivery O2 Flow Rate FiO2 03/26/17 12:55 36.9 66 20 90/67 (75) 91 Room Air 03/26/17 11:18 36.7 69 18 96/51 (66) 93 Room Air 03/26/17 08:00 Room Air 03/26/17 07:57 36.9 70 20 137/59 (85) 92 Room Air 0.0 03/26/17 04:00 Nasal Cannula 3.0 03/26/17 03:49 36.7 64 18 104/53 (70) 94 Nasal Cannula 3.0 03/26/17 00:00 36.7 68 20 98/51 (67) 93 Nasal Cannula 3.0 03/25/17 23:37 Nasal Cannula 3.0 03/25/17 20:03 Room Air 03/25/17 19:36 36.7 87 18 124/61 (82) 96 03/25/17 16:05 36.8 83 18 96 03/25/17 16:00 Room Air 03/25/17 14:54 36.5 70 18 126/58 95 Room Air 03/25/17 14:25 18 95 03/25/17 13:30 76 20 Physical Exam General Appearance: no apparent distress Respiratory/Chest: lungs clear, normal breath sounds, no respiratory distress, no accessory muscle use Cardiovascular: + irregularly irregular Abdomen: normal bowel sounds, non tender, soft Extremities: normal inspection, no pedal edema Neurologic/Psychiatric: no motor/sensory deficits, alert, normal mood/affect Laboratory Results Last 24 Hours Test 03/26/17 06:29 White Blood Count 3.75 K/uL Red Blood Count 4.08 M/uL Hemoglobin 11.8 g/dL Hematocrit 38.4 % Mean Corpuscular Volume 94.1 fL Mean Corpuscular Hemoglobin 28.9 pg Mean Corpuscular Hemoglobin Concent 30.7 g/dl RDW Standard Deviation 50.7 fL RDW Coefficient of Variation 14.9 % Platelet Count 226 K/uL Mean Platelet Volume 9.8 fL Prothrombin Time 21.9 SECONDS Prothromb Time International Ratio 2.0 Sodium Level 139 mmol/L Potassium Level 4.2 mmol/L Chloride Level 107 mmol/L Carbon Dioxide Level 26 mmol/L Anion Gap 6.0 mmol/L Blood Urea Nitrogen 19 mg/dl Creatinine 1.20 mg/dl Est Creatinine Clear Calc Drug Dose 32.1 ml/min Estimated GFR () 46.7 Estimated GFR (Non- 40.3 BUN/Creatinine Ratio 16.2 Random Glucose 101 mg/dl Calcium Level 8.5 mg/dl Assessment and Plan This is an 86 year old female with a PMH of chronic atrial fibrillation, HTN, hypothyroidism, HLD presents with a mechanical fall and a pelvic fracture L Pelvic Fracture secondary to a Mechanical Fall appreciate ortho input nonsurgical, WBAT, pain management will await PT/OT evals will need placement alternate Tylenol and Ultram for pain, with morphine PRN for breakthrough Hypoxia improving - now on RA, saturating about 91-92% No obvious cause; besides pain Chronic Atrial Fibrillation patient has chronic A. fib hold Coumadin, was given Vitamin K due to hematoma may need to hold Coumadin until follow-up cardiology as outpatient will need PT/OT, may restart if she becomes more steady on her feet monitor H/H rate is controlled Possible CAD? hx. of possible [place] in 2014 aspirin, b-fern, statin Morganella UTI continue Bactrim HTN will decrease metoprolol dose to 12.5mg BID monitor BP Hypothyroidism TSH is low suggesting hyperthyroidism will decrease dose of Synthroid DVT ppx SCDs FULL CODE
[2017-03-26] MEDS: DOCUSATE SODIUM 100 MG CAP PO PRN (14:14)
[2017-03-26] MEDS: ATORVASTATIN 40 MG TAB PO SCH (19:46)
[2017-03-26] MEDS: POLYETHYLENE (MIRALAX) 17 GM PACK PO PRN (21:30)
[2017-03-27] VITALS (8 sets, daily range): BP systolic 119–177; BP diastolic 66–88; PULSE 62–74; TEMP 36.4–36.7; O2SAT 91–93
[2017-03-27] MEDS ORDERED: LEVOTHYROXINE 75 MCG TAB PO SCH (06:00)
[2017-03-27 06:07] LABS: HEMATOCRIT 39.1 % (37-47); MEAN CELL VOLUME 93.5 fL (80-100); MEAN CORPUSCULAR HEMOGLOBIN 29.2 pg (25-34); MEAN CORPUSCULAR HGB CONC 31.2 g/dl (32-36); MEAN PLATELET VOLUME 10.3 fL (7.4-10.4); PLATELET COUNT 246 K/uL (130-400); RED BLOOD COUNT 4.18 M/uL (4.2-5.4); WHITE BLOOD COUNT 3.56 K/uL (4.8-10.8)
[2017-03-27] MEDS: ACETAMINOPHEN 500 MG TAB PO SCH ×2 (06:09→13:34)
[2017-03-27 06:14] LABS: INR 1.4 (0.9-1.1); PROTHROMBIN TIME (PATIENT) 15.4 SECONDS (9.0-12.0)
[2017-03-27 06:43] LABS: BUN/CREATININE RATIO 18.1 (10-20); CALCIUM 8.8 mg/dl (8.5-10.1); CREATININE 1.1 mg/dl (0.60-1.20); POTASSIUM 4.5 mmol/L (3.5-5.1)
[2017-03-27] MEDS: GABAPENTIN 100 MG CAP PO SCH ×2 (07:43→13:33)
[2017-03-27] MEDS: METOPROLOL TARTRATE 25 MG TAB PO SCH (07:43)
[2017-03-27] MEDS: ASPIRIN 81 MG ECTAB PO SCH (07:44)
[2017-03-27] MEDS: SULFAMETHOXAZOLE/TRIMETHOPRIM DS 800/160MG TAB PO SCH (07:44)
[2017-03-27] MEDS: CITALOPRAM 20 MG TAB PO SCH (07:44)
[2017-03-27] MEDS: ASCORBIC ACID 500 MG TAB PO SCH ×2 (07:44→17:06)
[2017-03-27] MEDS ORDERED: MRLP17X PO ×2 (13:57)
[2017-03-27] MEDS ORDERED: ULT50X PO ×2 (13:57)
[2017-03-27] MEDS ORDERED: SYN75 PO ×2 (13:57)
--- NOTE | 2017-03-27 13:59 | Discharge Instructions ---
Discharge Instructions Date of Service Mar 27, 2017. Admission Reason for Admission: FALL Discharge Discharge Diagnosis / Problem: CLOSED PELVIC FRACUTRE /LEFT PUBIS RAMUS FRACTURE Discharge Goals Goal(s): Decrease discomfort, Improve disease control, Diagnostic testing, Therapeutic intervention Activity Recommendations Activity Level: Assistance Required Therapies: Physical Therapy, Weight Bearing Status ( TOLERATED ), Occupational Therapy ROBEL BEARING TOLERATED WITH WALKER . Additional Information Patient informed of condition: Yes Advance Directives: No DNR: No Level of Care: Skilled Communicable Disease: No Prognosis: Stable Sam Catheter: No Current Hospital Diet Patient's current hospital diet: AHA Diet (Heart Healthy) Discharge Diet Recommended Diet: AHA Diet (Heart Healthy) Pending Studies Studies pending at discharge: no Medical Emergencies . Who to Call and When: Medical Emergencies: If at any time you feel your situation is an emergency, please call 911 immediately. . Non-Emergent Contact Non-Emergency issues call your: Primary Care Provider . . "Provider Documentation" section prepared by Lin Escalera. . Medicine Tech Recommendations Medicine Tech Recommendations: Weight bearing as tolerated with walker Pain management [place] [facility] [place] [phone] Core Measure Problem Core Measures: None
--- NOTE | 2017-03-27 14:56 | Progress Note ---
Internal Med Progress Note Date of Service: Mar 27, 2017. Provider Documentation: SUBJECTIVE: very pleasant , has baseline dementia updated that she is doing well and can go to rehab at [facility] today pt not able to understand completely -asks the same question twice mentions having pain in left pelvic region , better if she lies still son present at bedside , updated pt is accepted at [facility] today , stable to be transferred for continued rehab OBJECTIVE: Vital Signs-as noted below Exam: General-elderly female, no apparent distress Eyes-sclera non icteric ENT-NAD Neck-no JVD Lungs-CTA ,no rales or wheeze noted Heart-regular S1/S2 Abdomen-soft, non tender Extremities-trace bilat lower ext edema, tenderness on pelvic area in attempt to flex left knee, normal ROM on rt knee Neuro-baseline dementia ,no focal neurological deficit Lab data as noted below. ASSESSMENT & PLAN: This is an 86 year old female with a PMH of chronic atrial fibrillation, HTN, hypothyroidism, HLD presents with a mechanical fall and a pelvic fracture L Pelvic Fracture secondary to a Mechanical Fall stable pelvic fracture , no surgical intervention necessary appreciate input form Orthopedics nonsurgical, WBAT, pain management pt is accepted at [facility] stable to be transferred to [facility] main control with Ultram PRN ordered for stool softener to prevent constipation out pt follow up with Orthopedics in 2 weeks Hypoxia possible due to pain /discomfort resolved - now on RA, saturating about 91-92% cont incentive spirometry Chronic Atrial Fibrillation patient has chronic A. fib Coumadin resumed HX of CAD hx. of possible [place] in 2014 aspirin, b-fern, statin Morganella UTI completed Abx D/c Bactrim HTN decreased metoprolol dose to 12.5mg BID monitor BP Hypothyroidism TSH is low suggesting hyperthyroidism decreased dose of Synthroid to 75 mcg daily ( was on 100 mcg daily ) DVT ppx Coumadin FULL CODE DISPOSITION was a resident at [facility] accepted at [facility] for SNF stable to be transferred to [facility] today Vital Signs: Date Time Temp Pulse Resp B/P (MAP) Pulse Ox O2 Delivery O2 Flow Rate FiO2 03/27/17 12:00 Room Air 03/27/17 10:40 36.6 63 18 153/80 (104) 92 Room Air 03/27/17 08:00 Room Air 03/27/17 07:07 36.5 69 18 137/75 (95) 91 Room Air 03/27/17 04:00 Room Air 03/27/17 03:00 36.5 62 19 142/82 (102) 91 Room Air 03/27/17 00:00 36.6 64 14 119/66 (83) 93 Nasal Cannula 2.0 03/27/17 00:00 Nasal Cannula 2.0 03/26/17 20:00 Room Air 03/26/17 19:40 36.7 76 17 157/92 (113) 90 Room Air 03/26/17 16:00 Room Air 03/26/17 15:59 36.5 74 20 101/69 (80) 92 Room Air Lab Results: Results Past 24 Hours Test 03/27/17 05:43 Range/Units White Blood Count 3.56 4.8-10.8 K/uL Red Blood Count 4.18 4.2-5.4 M/uL Hemoglobin 12.2 12.0-16.0 g/dL Hematocrit 39.1 37-47 % Mean Corpuscular Volume 93.5 80-100 fL Mean Corpuscular Hemoglobin 29.2 25-34 pg Mean Corpuscular Hemoglobin Concent 31.2 32-36 g/dl RDW Standard Deviation 50.3 36.4-46.3 fL RDW Coefficient of Variation 14.7 11.5-14.5 % Platelet Count 246 130-400 K/uL Mean Platelet Volume 10.3 7.4-10.4 fL Prothrombin Time 15.4 9.0-12.0 SECONDS Prothromb Time International Ratio 1.4 0.9-1.1 Sodium Level 137 136-145 mmol/L Potassium Level 4.5 3.5-5.1 mmol/L Chloride Level 105 98-107 mmol/L Carbon Dioxide Level 25 21-32 mmol/L Anion Gap 7.0 3-11 mmol/L Blood Urea Nitrogen 20 7-18 mg/dl Creatinine 1.10 0.60-1.20 mg/dl Est Creatinine Clear Calc Drug Dose 33.8 ml/min Estimated GFR () 51.9 Estimated GFR (Non- 44.8 BUN/Creatinine Ratio 18.1 10-20 Random Glucose 98 70-99 mg/dl Calcium Level 8.8 8.5-10.1 mg/dl
[2017-03-27] MEDS ORDERED: LPR25 PO ×2 (15:08)
--- NOTE | 2017-03-27 15:11 | Discharge Summary ---
Discharge Summary Date of Service Mar 27, 2017. Discharge Summary Admission Date: Mar 25, 2017 at 13:04 Discharge Date: Mar 27, 2017 Discharge Disposition: Home Principal Diagnosis: CLOSED PELVIC FRACTURE /LEFT PUBIS RAMUS FRACTURE Procedures: CT OF LUMBER SPINE : IMPRESSION: 1. No acute osseous injury of the lumbar spine. No evidence of sacral alar fracture. 2. Scoliosis with severe multilevel degenerative changes resulting in varying degrees of osseous neural foraminal narrowing most severe at L5-S1 and mild effacement of the ventral spinal canal secondary to posterior osteophytosis. 3. Indeterminate left adrenal 1.8 cm nodule. Statistically, this still most likely represents a benign adenoma. If there is clinical concern or known malignancy, further evaluation with dedicated CT or MR with adrenal protocol could be obtained. XRAY OF PELVIS 2-3 VIEW : IMPRESSION: 1. Findings concerning for nondisplaced fractures of the left superior and inferior pubic rami. 2. Additionally, apparent disruption of arcuate lines along the left sacral ala raise concern for left sacral fracture. Correlate clinically for point tenderness in this region. 3. Further evaluation with noncontrast CT pelvis to be considered. CT HEAD : no acute intracranial injury Consultations: ORTHOPEDICS Medication Reconciliation New Medications: Levothyroxine Sodium (Synthroid) 75 Mcg Tab 75 MCG PO DAILYBB for 30 Days, TAB Metoprolol Tartrate (Lopressor) 25 Mg Tab 12.5 MG PO BID for 30 Days, #30 TAB Polyethylene (Miralax) 17 Gm Pow 17 GM PO DAILY PRN for Constipation for 30 Days Tramadol HCl (Tramadol HCl) 50 Mg Tab 50 MG PO Q6H PRN for Pain, #10 TAB Continued Medications: Acetaminophen (Qc Arthritis Pain Relief) 650 Mg Tab 2 TABS PO BID PRN for Pain Ascorbic Acid (Vitamin C) 500 Mg Tab 1 TAB PO BIDM for 30 Days Aspirin (Aspirin EC Low Dose) 81 Mg Ectab 81 MG PO QAM for 30 Days Atorvastatin (Atorvastatin Calcium) 40 Mg Tab 80 MG PO PM for 30 Days, TAB Citalopram Hydrobromide (Celexa) 10 Mg Tab 10 MG PO DAILY, TAB Docusate Sodium (Docusate Sodium) 100 Mg Tab 1 CAP PO DAILY PRN for Constipation Gabapentin (Neurontin) 100 Mg Cap 200 MG PO TID, CAP Nystatin (Topical) (Nystop) 100,000 Unit/Gm Pow 1 APPLN TOP BID PRN for RED AREAS Oxybutynin Chloride (Ditropan) 5 Mg Tab 5 MG PO BID, TAB Warfarin Sod (Jantoven) 5 Mg Tab 2.5 MG PO Q2D, TAB 1/2 TAB EVERY 2 DAYS (2.5MG) Warfarin Sod (Jantoven) 5 Mg Tab 1 TAB PO Q2D 1 TAB EVERY 2 DAYS (ALTERNATE DOSE) Zolpidem Tartrate (Ambien) 5 Mg Tab 5 MG PO HS, TAB [Analgesic Gel] () 1 APPLN DIRECTED Discontinued Medications: Levothyroxine Sodium (Levothyroxine Sodium) 100 Mcg Tab 100 MCG PO DAILY Metoprolol Tartrate (Lopressor) 25 Mg Tab 25 MG PO BID for 30 Days, TAB Sulfamethoxazole-Trimethoprim (Bactrim Ds 800MG/160MG) 1 Tab Tab 1 TAB PO BID Admission Information HPI (per Admitting provider): 86 yo F presents with worsening L hip pain since yesterday in the early afternoon. She has a h/o fall one week ago at her personal detention. She fell after walking out to the nurses station and had appeared to staff to be altered. Workup revealed a UTI and she began treatment with Bactrim. She was ambulating without difficulty until this morning when there was another reported fall where staff found her on the floor. The patient states that she slid down into a wheelchair after finding that her L leg was stiff when she was getting out of bed. She states that despite the worsened L hip pain yesterday, she was able to ambulate without difficulty to dinner yesterday evening. CT scan in the ER today reveals a nondisplaced fracture of the L superior pubic ramus and minimally impacted fracture of the L inferior pubic ramus with evidence of a hematoma on the L pelvic sidewall. She otherwise denies any symptoms including no chest pain, shortness of breath, cough, fevers, chills, abdominal pain, nausea, vomiting, diarrhea, blood per rectum, headache, visual changes, difficulty speaking, swallowing, and no other stroke like symptoms, and no UTI symptoms including no hematuria, dysuria, flank pain, etc. She also denies numbness in her legs. She is having some difficulty bending her L leg and reports chronic neuropathic pain in her feet, but states that her current pain is localized to the L hip. She is therapeutic on her coumadin with an INR 2.6 today. 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 Luigi Jasso as outpatient. Family states no cardiac catheterization or stress test was performed when she left the hospital in 2015 and she was treated conservatively. She has some persistent ST elevations in the inferior leads, similar to prior EKG at that time. She also has some reported L sided weakness in hand soft sugar cutter and leg strength from her stroke in 2015 per family. Physical Exam (per Admitting): General Appearance: WD/WN, no apparent distress Head: normocephalic, atraumatic Eyes: normal inspection, PERRL, sclerae normal ENT: normal ENT inspection, pharynx normal, + pertinent finding (Hard of hearing) Neck: supple, no adenopathy, no JVD, trachea midline Respiratory/Chest: lungs clear, normal breath sounds, no respiratory distress, no accessory muscle use Cardiovascular: no edema, no JVD, no murmur, normal peripheral pulses, + irregularly irregular Abdomen/GI: normal bowel sounds, non tender, soft Back: normal inspection, no CVA tenderness Extremities/Musculoskelatal: normal inspection, normal range of motion (No ecchymosis seen around L hip area. ), + pertinent finding (L medial ankle-small scab with minimal expected surrounding erythema, no signs of infection or drainage. ) Neurologic/Psych: processing clerk II-XII nml as tested, no motor/sensory deficits, alert , normal mood/affect, + pertinent finding (oriented to self and place only. Knew Sept but could not tell the year) Skin: normal color, warm/dry Lymphatic: no adenopathy Hospital Course This is an 86 year old female with a PMH of chronic atrial fibrillation, HTN, hypothyroidism, HLD presents with a mechanical fall and a pelvic fracture L Pelvic Fracture secondary to a Mechanical Fall stable pelvic fracture , no surgical intervention necessary appreciate input form Orthopedics nonsurgical, WBAT, pain management pt is accepted at [facility] stable to be transferred to SNF main control with Ultram PRN ordered for stool softener to prevent constipation out pt follow up with Orthopedics in 2 weeks Hypoxia possible due to pain /discomfort resolved - now on RA, saturating about 91-92% cont incentive spirometry Chronic Atrial Fibrillation patient has chronic A. fib Coumadin resumed HX of CAD hx. of possible KS in 2014 aspirin, b-fern, statin Morganella UTI completed Abx D/c Bactrim HTN decreased metoprolol dose to 12.5mg BID monitor BP Hypothyroidism TSH is low suggesting hyperthyroidism decreased dose of Synthroid to 75 mcg daily ( was on 100 mcg daily ) DVT ppx Coumadin FULL CODE DISPOSITION was a resident at [facility] accepted at [facility] for SNF stable to be transferred to [facility] today Total time spent on discharge = This includes examination of the patient, discharge planning, medication reconciliation, and communication with other providers. Discharge Instructions Discharge Instructions Date of Service Mar 27, 2017. Admission Reason for Admission: FALL Discharge Discharge Diagnosis / Problem: CLOSED PELVIC FRACTURE /LEFT PUBIS RAMUS FRACTURE Discharge Goals Goal(s): Decrease discomfort, Improve disease control, Diagnostic testing, Therapeutic intervention Activity Recommendations Activity Level: Assistance Required Therapies: Physical Therapy, Weight Bearing Status ( TOLERATED ), Occupational Therapy ROBEL BEARING TOLERATED WITH WALKER . Additional Information Patient informed of condition: Yes Advance Directives: No DNR: No Level of Care: Skilled Communicable Disease: No Prognosis: Stable Sam Catheter: No Current Hospital Diet Patient's current hospital diet: AHA Diet (Heart Healthy) Discharge Diet Recommended Diet: AHA Diet (Heart Healthy) Pending Studies Studies pending at discharge: no Medical Emergencies . Who to Call and When: Medical Emergencies: If at any time you feel your situation is an emergency, please call 911 immediately. . Non-Emergent Contact Non-Emergency issues call your: Primary Care Provider . . "Provider Documentation" section prepared by Lin Escalera. . Clerical And Office Support Workers Recommendations Clerical And Office Support Workers Recommendations: Weight bearing as tolerated with walker Pain management Follow up with Dr. Rowe at [facility] in 4 weeks [phone] Core Measure Problem Core Measures: None
[2017-03-27] MEDS ORDERED: WARFARIN SOD 1 MG TAB PO ONE (15:15)
== END 2017-03-27 19:39 | DRG 536 ==
LOC: C.EDB 09:00 → C.2E 13:04 → ENRESERV 13:53
PROVIDERS: ADMIT Hospitalist; ATTEND Hospitalist
DX: S32.512A Fracture of superior rim of left pubis, initial encounter for closed fracture (principal); N39.0 Urinary tract infection, site not specified; R29.6 Repeated falls; I10 Essential (primary) hypertension; E78.5 Hyperlipidemia, unspecified; E03.9 Hypothyroidism, unspecified; R09.02 Hypoxemia; I48.2 Chronic atrial fibrillation; I25.10 Atherosclerotic heart disease of native coronary artery without angina pectoris; I25.2 Old myocardial infarction; G62.9 Polyneuropathy, unspecified; Z79.01 Long term (current) use of anticoagulants; Z79.82 Long term (current) use of aspirin; Z79.899 Other long term (current) drug therapy; Z86.73 Personal history of transient ischemic attack (TIA), and cerebral infarction without residual deficits; Z87.891 Personal history of nicotine dependence; Z91.81 History of falling; W19.XXXA Unspecified fall, initial encounter

== ENCOUNTER → 2017-03-29 | Outpatient (CLI) | payer OTHER ==
[~2017-03-29] MED LIST changes: +ACET-1311 PO; +ANALGESIC; +CITA10TA8 PO; +DOCU1TAB6 PO; +GABA-112 PO; +MRLP17X PO; +NYST100010 TOP; +OXYB5TAB74 PO; +SULF-183 PO; +SULF800T23 PO; +SYN75 PO; +ULT50X PO; +ZOLP5TAB PO; +[UNRECOGNIZED DRUG - CODE] PO
[2017-03-29 08:33] LABS: INR 1.1 (0.9-1.1); PROTHROMBIN TIME (PATIENT) 12.2 SECONDS (9.0-12.0)
== END ==
LOC: C.LABCC 08:08
PROVIDERS: ATTEND Internal Medicine
DX: I48.91 Unspecified atrial fibrillation (principal)

== ENCOUNTER → 2017-04-02 | Outpatient (CLI) | payer OTHER ==
[~2017-04-02] MED LIST changes: -ACET-1311 PO; -CITA40TA4 PO; -FRRS300 PO; -NRN100 PO; -NYSTOIN5; -SULF-183 PO
[2017-04-02 08:13] LABS: INR 1.5 (0.9-1.1)
== END ==
LOC: C.LABCC 07:55
PROVIDERS: ATTEND Internal Medicine
DX: I48.91 Unspecified atrial fibrillation (principal)

== ENCOUNTER → 2017-04-03 | Outpatient (CLI) | payer OTHER ==
[2017-04-03 09:49] LABS: URINE APPEARANCE CLEAR (CLEAR); URINE BILIRUBIN NEG (NEG); URINE COLOR YELLOW; URINE NITRITE NEG (NEG); URINE SPECIFIC GRAVITY 1.012 (1.000-1.030); UROBILINOGEN POS (NEG); ZZURINE CULT IF INDIC CATH NO
[2017-04-03 09:53] LABS: MANUAL MICROSCOPIC REQUIRED? NO; REVIEW REQ? NO
== END ==
LOC: C.LABCC 09:14
PROVIDERS: ATTEND Internal Medicine
DX: R35.0 Frequency of micturition (principal); R41.0 Disorientation, unspecified

== ENCOUNTER → 2017-04-05 | Outpatient (CLI) | payer OTHER ==
[2017-04-05 09:01] LABS: BASO % 1.3 %; BASO ABS # 0.05 K/uL (0-0.2); COMPLETE YES; EOS % 5.6 %; HEMATOCRIT 41.5 % (37-47); IG% 0.3 %; LYMPH % 31.5 %; LYMPH ABS # 1.17 K/uL (1.2-3.4); MEAN CELL VOLUME 93.9 fL (80-100); MEAN CORPUSCULAR HEMOGLOBIN 28.7 pg (25-34); MEAN CORPUSCULAR HGB CONC 30.6 g/dl (32-36); MONO % 17.5 %; NEUT % 43.8 %; PLATELET COUNT 453 K/uL (130-400); RED BLOOD COUNT 4.42 M/uL (4.2-5.4); WHITE BLOOD COUNT 3.72 K/uL (4.8-10.8)
[2017-04-05 09:10] LABS: INR 1.5 (0.9-1.1); PROTHROMBIN TIME (PATIENT) 16.8 SECONDS (9.0-12.0)
[2017-04-05 09:12] LABS: ALT/SGPT 33 U/L (12-78); AST/SGOT 23 U/L (15-37); BLOOD UREA NITROGEN 19 mg/dl (7-18); CALCIUM 9.5 mg/dl (8.5-10.1); CARBON DIOXIDE 27 mmol/L (21-32); CHLORIDE 106 mmol/L (98-107); CREATININE 0.78 mg/dl (0.60-1.20); GLUCOSE 92 mg/dl (70-99); POTASSIUM 4.6 mmol/L (3.5-5.1); SODIUM 141 mmol/L (136-145)
[2017-04-05 09:23] LABS: ALB/GLOB RATIO 0.8 (0.9-2); ALKALINE PHOSPHATASE 181 U/L (45-117)
== END ==
LOC: C.LABCC 08:40
PROVIDERS: ATTEND Internal Medicine
DX: I48.91 Unspecified atrial fibrillation (principal); R41.0 Disorientation, unspecified

== ENCOUNTER → 2017-04-09 | Outpatient (CLI) | payer OTHER ==
[2017-04-09 08:38] LABS: INR 3.2 (0.9-1.1); PROTHROMBIN TIME (PATIENT) 35.4 SECONDS (9.0-12.0)
== END ==
LOC: C.LABCC 08:06
PROVIDERS: ATTEND Internal Medicine
DX: I48.91 Unspecified atrial fibrillation (principal)

== ENCOUNTER → 2017-04-16 | Outpatient (CLI) | payer OTHER ==
[2017-04-16 10:07] LABS: INR 2.3 (0.9-1.1); PROTHROMBIN TIME (PATIENT) 25.4 SECONDS (9.0-12.0)
== END ==
LOC: C.LABCC 09:11
PROVIDERS: ATTEND Internal Medicine
DX: I48.91 Unspecified atrial fibrillation (principal)

== ENCOUNTER → 2017-04-25 | Outpatient (CLI) | payer OTHER ==
[2017-04-25 09:27] LABS: INR 2.9 (0.9-1.1); PROTHROMBIN TIME (PATIENT) 32.3 SECONDS (9.0-12.0)
== END ==
LOC: C.LABCC 08:54
PROVIDERS: ATTEND Internal Medicine
DX: I48.91 Unspecified atrial fibrillation (principal)

== ENCOUNTER → 2017-04-26 | Outpatient (CLI) | payer OTHER ==
[2017-04-26 18:33] LABS: URINE APPEARANCE CLOUDY (CLEAR); URINE BILIRUBIN NEG (NEG); URINE COLOR DK YELLOW; URINE EPITHELIAL CELL AUTO >30 /lpf (0-5); URINE NITRITE NEG (NEG); URINE SPECIFIC GRAVITY 1.022 (1.000-1.030); UROBILINOGEN NEG (NEG)
[2017-04-26 18:38] LABS: MANUAL MICROSCOPIC REQUIRED? NO; REVIEW REQ? YES
[2017-04-26 18:46] LABS: URINE MUCUS PRESENT (NONE PRSENT)
== END ==
LOC: C.LABCC 17:38
PROVIDERS: ATTEND Internal Medicine
DX: R35.1 Nocturia (principal); R41.82 Altered mental status, unspecified

== ENCOUNTER → 2017-05-01 | Outpatient (CLI) | payer OTHER ==
[2017-05-01 18:48] LABS: URINE APPEARANCE CLEAR (CLEAR); URINE BILIRUBIN NEG (NEG); URINE COLOR YELLOW; URINE NITRITE NEG (NEG); URINE SPECIFIC GRAVITY 1.015 (1.000-1.030); UROBILINOGEN NEG (NEG)
[2017-05-01 18:53] LABS: MANUAL MICROSCOPIC REQUIRED? NO; REVIEW REQ? NO
== END ==
LOC: C.LABCC 17:47
PROVIDERS: ATTEND Internal Medicine
DX: R41.0 Disorientation, unspecified (principal)

== ENCOUNTER → 2017-05-02 | Outpatient (CLI) | payer OTHER ==
[~2017-05-02] MED LIST changes: +DTR/5 PO; -OXYB5TAB74 PO
[2017-05-02 08:47] LABS: BASO % 1.2 %; BASO ABS # 0.04 K/uL (0-0.2); COMPLETE YES; EOS % 6.4 %; HEMATOCRIT 39.1 % (37-47); IG% 0.3 %; LYMPH % 23.3 %; MEAN CELL VOLUME 93.8 fL (80-100); MEAN PLATELET VOLUME 10.1 fL (7.4-10.4); MONO % 12.8 %; PLATELET COUNT 318 K/uL (130-400); RED BLOOD COUNT 4.17 M/uL (4.2-5.4); WHITE BLOOD COUNT 3.43 K/uL (4.8-10.8)
[2017-05-02 08:58] LABS: BLOOD UREA NITROGEN 17 mg/dl (7-18); BUN/CREATININE RATIO 22.7 (10-20); CALCIUM 8.8 mg/dl (8.5-10.1); CARBON DIOXIDE 26 mmol/L (21-32); CHLORIDE 107 mmol/L (98-107); CREATININE 0.73 mg/dl (0.60-1.20); GLUCOSE 97 mg/dl (70-99); POTASSIUM 3.8 mmol/L (3.5-5.1); SODIUM 140 mmol/L (136-145)
== END | disposition home or self-care (01) ==
LOC: C.LABCC 08:28
PROVIDERS: ATTEND Internal Medicine
DX: R41.0 Disorientation, unspecified (principal)

== ENCOUNTER → 2017-05-04 | Outpatient (CLI) | payer OTHER ==
[2017-05-04 08:41] LABS: INR 2.8 (0.9-1.1); PROTHROMBIN TIME (PATIENT) 31.6 SECONDS (9.0-12.0)
== END ==
LOC: C.LABCC 07:54
PROVIDERS: ATTEND Internal Medicine
DX: I48.91 Unspecified atrial fibrillation (principal)

== ENCOUNTER → 2017-05-21 | Outpatient (CLI) | payer OTHER ==
[2017-05-21 09:13] LABS: INR 2.5 (0.9-1.1)
== END ==
LOC: C.LABCC 08:07
PROVIDERS: ATTEND Internal Medicine
DX: I48.91 Unspecified atrial fibrillation (principal)

== ENCOUNTER → 2017-05-29 | Outpatient (CLI) | payer OTHER ==
[2017-05-29 08:13] LABS: INR 2.2 (0.9-1.1); PROTHROMBIN TIME (PATIENT) 23.8 SECONDS (9.0-12.0)
== END ==
LOC: C.LABCC 07:44
PROVIDERS: ATTEND Internal Medicine
DX: I48.91 Unspecified atrial fibrillation (principal)

== ENCOUNTER → 2017-06-12 | Outpatient (CLI) | payer OTHER ==
[2017-06-12 08:32] LABS: PROTHROMBIN TIME (PATIENT) 20.7 SECONDS (9.0-12.0)
== END ==
LOC: C.LABCC 07:46
PROVIDERS: ATTEND Internal Medicine
DX: I48.91 Unspecified atrial fibrillation (principal)

== ENCOUNTER → 2017-06-27 | Outpatient (CLI) | payer OTHER ==
[2017-06-27 09:26] LABS: PROTHROMBIN TIME (PATIENT) 20.7 SECONDS (9.0-12.0)
== END | disposition home or self-care (01) ==
LOC: C.LABCC 09:00
PROVIDERS: ATTEND Internal Medicine
DX: I48.91 Unspecified atrial fibrillation (principal)

== ENCOUNTER → 2017-07-20 | Outpatient (CLI) | payer OTHER ==
[2017-07-20 09:39] LABS: INR 1.8 (0.9-1.1)
== END ==
LOC: C.LABCC 08:47
PROVIDERS: ATTEND Internal Medicine
DX: I48.91 Unspecified atrial fibrillation (principal)

== ENCOUNTER → 2017-07-30 | Outpatient (CLI) | payer OTHER ==
[2017-07-30 09:11] LABS: INR 2.1 (0.9-1.1)
== END ==
LOC: C.LABCC 08:38
PROVIDERS: ATTEND Internal Medicine
DX: I48.91 Unspecified atrial fibrillation (principal)

== ENCOUNTER 2017-08-05 07:42 | Emergency (ER) | payer OTHER ==
[~2017-08-05] VITALS: Ht 157.5 cm; Wt 72.0 kg
[2017-08-05 07:45] VITALS: TEMP 36.4; Ht 157.5 cm; Wt 72.0 kg
--- NOTE | 2017-08-05 07:55 | EMERGENCY ROOM VISIT NOTE ---
History Report prepared by Melanieibkarina: David Leonard Under the Supervision of: Dr. Bogdan Victor D.O. First contact with patient: 07:50 Chief Complaint: WRIST PAIN Stated Complaint: FALL/ WRIST FRACTURE History of Present Illness The patient is a 86 year old female who presents to the Emergency Room with complaints of right wrist pain s/p mechanical fall that happened 12 hours ago. She denies any other complaints of pain. Source of History: patient Onset: 12 Position: wrist (right) Timing: constant Review of Systems See HPI for pertinent positives & negatives. A total of 10 systems reviewed and were otherwise negative. Past Medical & Surgical Medical Problems: (1) Acquired hypothyroidism (2) Atrial fibrillation (3) Benign essential hypertension (4) Carcinoma of sigmoid colon (5) Fall (6) H/O malignant neoplasm of endometrium (7) H/O: CVA (cerebrovascular accident) (8) Hyperlipidemia (9) Hypothyroidism (10) Peripheral neuropathy (11) Urinary incontinence Surgical Problems: (1) S/P NICK-BSO (2) Status post cholecystectomy Family History Insignificant due to old age Social History Smoking Status: Never Smoker Alcohol Use: none Drug Use: none Marital Status: Housing Status: lives alone Occupation Status: retired Current/Historical Medications Scheduled Ascorbic Acid (Vitamin C), 1 TAB PO BIDM Aspirin (Aspirin EC Low Dose), 81 MG PO QAM Atorvastatin (Lipitor), 80 MG PO PM Citalopram Hydrobromide (Celexa), 10 MG PO DAILY Gabapentin (Neurontin), 200 MG PO TID Levothyroxine Sodium (Levothyroxine Sodium), 100 MCG PO DAILY Levothyroxine Sodium (Synthroid), 75 MCG PO DAILYBB Metoprolol Tartrate (Lopressor), 25 MG PO BID Metoprolol Tartrate (Lopressor), 12.5 MG PO BID Oxybutynin Chloride (Ditropan), 5 MG PO BID Sulfamethoxazole-Trimethoprim (Bactrim Ds 800MG/160MG), 1 TAB PO BID Warfarin Sod (Jantoven), 2.5 MG PO Q2D Warfarin Sod (Jantoven), 1 TAB PO Q2D Zolpidem Tartrate (Ambien), 5 MG PO HS [Analgesic Gel], 1 APPLN DIRECTED Scheduled PRN Acetaminophen (Qc Arthritis Pain Relief), 2 TABS PO BID PRN for Pain Docusate Sodium (Docusate Sodium), 1 CAP PO DAILY PRN for Constipation Nystatin (Topical) (Nystop), 1 APPLN TOP BID PRN for RED AREAS Polyethylene (Miralax), 17 GM PO DAILY PRN for Constipation Tramadol HCl (Tramadol HCl), 50 MG PO Q6H PRN for Pain Allergies Coded Allergies: No Known Allergies (Verified , 03/25/17) Physical Exam Vital Signs Date Time Temp Pulse Resp B/P (MAP) Pulse Ox O2 Delivery O2 Flow Rate FiO2 08/05/17 07:45 36.4 66 20 180/76 96 Room Air Physical Exam CONSTITUTIONAL/VITAL SIGNS: Reviewed / noted above. GENERAL: Non-toxic in appearance. INTEGUMENTARY: Warm, dry, and [place]. HEAD: Normocephalic. EYES: without scleral icterus or trauma. ENT/OROPHARYNX: clear and moist. LYMPHADENOPATHY/NECK: Is supple without lymphadenopathy or meningismus. RESPIRATORY: Lungs clear and equal. CARDIOVASCULAR: Regular rate and rhythm. GI/ABDOMEN: Soft and nontender. No organomegaly or pulsatile mass. No rebound or guarding. Normal bowel sounds. EXTREMITIES: Warm and well perfused. Mild ecchymosis and swelling of right wrist. BACK: No CVA tenderness. NEUROLOGICAL: Intact without focal deficits. PSYCHIATRIC: normal affect. MUSCULOSKELETAL: Normally developed with good muscle tone. Medical Decision & Procedures ER Provider Diagnostic Interpretation: Radiology results as stated below per my review and radiologist interpretation: WRIST AP and LAT, RIGHT Results: There is an impacted fracture of the distal right radius with mild dorsal angulation of the distal fragments. Conclusion: Impacted fracture distal right radius. Electronically signed by Petr Khalil M.D. 08/05/2017 5:52:05 AM EST. ED Course 0750: Previous medical records were reviewed. The patient was evaluated in room B2. A complete history and physical examination was performed. 0805: On reevaluation, the patient is doing well. I discussed the results and findings with the patient. She verbalized agreement of the treatment plan. She was discharged home. Medical Decision Please refer to the electronic Patient Visit Report (Discharge Instructions) for additional information. This is a 78-year-old female who presents to the ED with a chief complaint of right wrist fracture. The patient fell on it yesterday. She states that she was talking to some friends and when she turned, she lost her balance and fell. She landed on her right hand/wrist. The patient complains of pain in the right wrist. She had an x-ray done earlier today at the [facility] that reveals an impacted distal right radius fracture with minimal evaluation. They did have a commercial wrist splint in place. The patient was examined. She is distally neurovascularly intact. There is mild swelling and ecchymosis noted to the right wrist. She was placed in a Ortho-Glass splint. She was discharged. Orthopedic follow-up in 1-2 days. Medication Reconcilliation Current Medication List: was personally reviewed by me Blood Pressure Screening Patient's blood pressure: Elevated blood pressure Blood pressure disposition: Elevated BP felt to be situational Impression Primary Impression: Wrist fracture, right Scribe Attestation The scribe's documentation has been prepared under my direction and personally reviewed by me in its entirety. I confirm that the note above accurately reflects all work, treatment, procedures, and medical decision making performed by me. Departure Information Dispostion Home / Self-Care Referrals [facility] (PCP) Arsen Schroeder D.O. Patient Instructions My [facility] Additional Instructions Keep splint clean and dry. Call orthopedics tomorrow for follow-up tomorrow or the next day.
[2017-08-05] MEDS ORDERED: ACETAMINOPHEN 500 MG TAB PO STA (08:12)
[2017-08-05] MEDS ORDERED: WARF2.5T8 PO (08:18)
[2017-08-05] MEDS ORDERED: INSU100I SC (08:18)
[2017-08-05 08:30] VITALS: BP 188/83; PULSE 68; O2SAT 96
== END 2017-08-05 08:37 | disposition home or self-care (01) ==
LOC: EDBD 07:42 → C.EDB 07:44
DX: S52.501A Unspecified fracture of the lower end of right radius, initial encounter for closed fracture (principal); W18.39XA Other fall on same level, initial encounter; E03.9 Hypothyroidism, unspecified; I48.91 Unspecified atrial fibrillation; I10 Essential (primary) hypertension; E78.5 Hyperlipidemia, unspecified; G62.9 Polyneuropathy, unspecified; Z79.82 Long term (current) use of aspirin; Z79.01 Long term (current) use of anticoagulants; Z85.038 Personal history of other malignant neoplasm of large intestine; Z85.42 Personal history of malignant neoplasm of other parts of uterus; Z86.73 Personal history of transient ischemic attack (TIA), and cerebral infarction without residual deficits

== ENCOUNTER → 2017-08-07 | Outpatient (CLI) | payer OTHER ==
[~2017-08-07] MED LIST changes: +ACET-1257 PO; +ACET325T96 PO; -ANALGESIC; -DTR/5 PO; +HYDR-5688 PO; +IBUP-1459 PO; +INSU100I SC; -LEVO100T7 PO; +LVNIS40 SQ; +MOMLX PO; -NYST100010 TOP; +SODI1ENE PR; -SULF800T23 PO; +SYN88 PO; +WARF2.5T8 PO; -ZOLP5TAB PO; -[UNRECOGNIZED DRUG - CODE] PO
== END ==
LOC: C.LABCC 07:49
PROVIDERS: ATTEND Internal Medicine
DX: I48.91 Unspecified atrial fibrillation (principal)

== ENCOUNTER → 2017-08-08 | Outpatient (CLI) | payer OTHER ==
[2017-08-08 10:14] LABS: INR 2.1 (0.9-1.1)
== END ==
LOC: C.LABCC 09:12
PROVIDERS: ATTEND Internal Medicine
DX: I48.91 Unspecified atrial fibrillation (principal)

== ENCOUNTER 2017-08-09 09:53 | Inpatient (IN) | payer OTHER ==
[~2017-08-09] VITALS: Ht 162.6 cm; Wt 71.7 kg
[~2017-08-09 09:53] MED LIST changes: -ACET-1257 PO; -ACET325T96 PO; -HYDR-5688 PO; -IBUP-1459 PO; -LVNIS40 SQ; -MOMLX PO; -SODI1ENE PR; -SYN88 PO; -ULT50X PO
[2017-08-09 13:25] VITALS: BP 126/62; PULSE 68; TEMP 36.7; O2SAT 93
[2017-08-09 13:55] VITALS: Ht 162.6 cm; Wt 71.7 kg
[2017-08-09 14:18] LABS: HEMATOCRIT 39.9 % (37-47); HEMOGLOBIN 12.6 g/dL (12.0-16.0); MEAN CORPUSCULAR HGB CONC 31.6 g/dl (32-36); PLATELET COUNT 276 K/uL (130-400); RED CELL DISTRIBUTION WIDTH CV 13.1 % (11.5-14.5); RED CELL DISTRIBUTION WIDTH SD 47.1 fL (36.4-46.3); WHITE BLOOD COUNT 3.35 K/uL (4.8-10.8)
[2017-08-09] MEDS ORDERED: ACET325T96 PO ×2 (14:41)
[2017-08-09 14:43] LABS: CALCIUM 8.4 mg/dl (8.5-10.1); CREATININE 1.09 mg/dl (0.60-1.20); POTASSIUM 4.4 mmol/L (3.5-5.1)
[2017-08-09] MEDS ORDERED: SODI1ENE PR ×2 (14:49)
[2017-08-09] MEDS ORDERED: IBUP-1459 PO ×2 (14:51)
[2017-08-09] MEDS ORDERED: MOMLX PO ×2 (14:54)
[2017-08-09] MEDS ORDERED: HYDR-5688 PO ×3 (14:55)
[2017-08-09] MEDS ORDERED: NURSING VERBAL MED ORDER ONE ×2 (15:15→17:15)
[2017-08-09 15:25] VITALS: BP 155/82; PULSE 63; TEMP 36.5; O2SAT 93
--- NOTE | 2017-08-09 15:40 | DIAGNOSTIC IMAGING REPORT ---
BILATERAL CAROTID DOPPLER STUDY HISTORY: h/o carotid stenosis COMPARISON: Carotid Doppler 08/26/2014. TECHNIQUE: Real-time, grayscale, and color Doppler sonography of the carotid arteries was performed. Imaging reviewed in the transverse and longitudinal planes. All measurements were calculated based on NASCET criteria. FINDINGS: Antegrade flow is seen in the bilateral vertebral arteries. The brachial pressures were not obtained due to the patient's injury. Moderate calcified plaque within the bilateral carotid bifurcations. The peak systolic velocity within the right ICA is 66 cm/s. The right systolic ratio is 1.3. The peak systolic velocity within the left ICA is 73 cm/s. The left systolic ratio is 1.4. IMPRESSION: No hemodynamically significant stenosis seen within the carotid arteries. Electronically signed by: Valdemar Palomares M.D. 08/09/2017 3:38 PM Dictated Date/Time: 08/09/2017 3:36 PM
--- NOTE | 2017-08-09 16:07 | History and Physical ---
History & Physical Date Aug 09, 2017. Chief Complaint right wrist pain History of Present Illness The patient is a 86 year old female with complaints of right wrist pain following a fall at [facility]. She had a fall onto an outstretched right hand and had pain. X-rays noted a distal radius fx. She is now being set up for surgical tx after discussion with the patient's son and 2 daughters. Past Medical/Surgical History Medical Problems: (1) Acquired hypothyroidism (2) Atrial fibrillation (3) Benign essential hypertension (4) Carcinoma of sigmoid colon (5) Fall (6) H/O malignant neoplasm of endometrium (7) H/O: CVA (cerebrovascular accident) (8) Hyperlipidemia (9) Hypothyroidism (10) Peripheral neuropathy (11) Urinary incontinence Surgical Problems: (1) S/P NICK-BSO (2) Status post cholecystectomy Allergies Coded Allergies: No Known Allergies (Verified , 03/25/17) Home Medications Scheduled Acetaminophen Tab (Tylenol), 650 MG PO Q6H Ascorbic Acid (Vitamin C), 1 TAB PO BIDM Aspirin (Aspirin EC Low Dose), 81 MG PO QAM Atorvastatin (Lipitor), 80 MG PO PM Citalopram Hydrobromide (Celexa), 10 MG PO DAILY Gabapentin (Neurontin), 200 MG PO TID Insulin Lispro (Human) (Humalog), 8-18 UNITS SC DIRECTED PER SC Levothyroxine Sodium (Synthroid), 75 MCG PO DAILYBB Magnesium Hydroxide (Milk of Magnesia), 30 ML PO DAILY Metoprolol Tartrate (Lopressor), 12.5 MG PO BID Sodium Phosphates (Fleet Enema Six Pack), 1 DC DAILY Warfarin Sod (Jantoven), 1 TAB PO 4XWK Warfarin Sod (Jantoven), 2.5 MG PO TW Scheduled PRN Docusate Sodium (Docusate Sodium), 1 CAP PO DAILY PRN for Constipation Hydrocodone/Acetaminophen 5MG/325MG ([place] 5MG/325MG), 1 TAB PO TID PRN for Pain Hydrocodone/Acetaminophen 5MG/325MG ([place] 5MG/325MG), 2 TABLETS PO Q8 PRN for Pain Ibuprofen (Motrin), 400 MG PO Q6H PRN for Pain Polyethylene (Miralax), 17 GM PO DAILY PRN for Constipation Physical Examination Skin: warm/dry, no rash Eyes: normal inspection ENT: normal ENT inspection Head: normocephalic, atraumatic Neck: supple, no adenopathy, trachea midline Respiratory/Chest: lungs clear, normal breath sounds, no respiratory distress Cardiovascular: regular rate, rhythm Abdomen / GI: normal bowel sounds, non tender Extremities: + pertinent finding (Right wrist: + swelling of the right wrist. Tender distal radius. No ROM or strength testing done. Patient placed in a volar splint. NV intact.) Neurologic/Psych: alert, oriented x 3 Diagnosis Right distal radius fx Plan of Treatment Recommend a right distal radius fx ORIF with volar plating. All potential risks, benefits, complications, alternatives, and rehab have been discussed with the patient, her son, and her 2 daughters and they wish to proceed as tolerated. The plan for surgery is for 2.2.18. She is admitted today with a consult for medicine for medical management and clearance/optimization for surgery.
[2017-08-09 16:16] LABS: INR 1.6 (0.9-1.1)
[2017-08-09 16:34] LABS: BASO % 1.5 %; BASO ABS # 0.05 K/uL (0-0.2); EOS % 5.2 %; EOS ABS # 0.17 K/uL (0-0.5); IG# 0.01 K/uL (0.00-0.02); LYMPH % 20.3 %; LYMPH ABS # 0.66 K/uL (1.2-3.4); MONO % 15.1 %; MONO ABS # 0.49 K/uL (0.11-0.59); NEUT % 57.6 %; NEUT ABS # 1.87 K/uL (1.4-6.5)
[2017-08-09 16:53] LABS: ALBUMIN 2.6 gm/dl (3.4-5.0); CALCIUM 8.8 mg/dl (8.5-10.1); CREATININE 1.12 mg/dl (0.60-1.20); POTASSIUM 4.5 mmol/L (3.5-5.1)
[2017-08-09 16:56] LABS: TOTAL PROTEIN 6.3 gm/dl (6.4-8.2)
[2017-08-09] MEDS ORDERED: MoRPHine SULFATE 2 MG/ML CARP IV PRN (17:30)
[2017-08-09] MEDS ORDERED: PHYTONADIONE 5 MG TAB PO ONE (18:00)
--- NOTE | 2017-08-09 18:34 | History and Physical ---
History & Physical Date of Service Aug 09, 2017. History & Physical This is an 86 year old female with a PMH of paroxysmal A. Fib on long-term anticoagulation, HTN, hypothyroidism, HLD - presents for R wrist surgery. She is a resident at [facility]. Tells me she fell over her wheelchair. As per patient, she did not pass out. She did have another fall back in March 2017; was seen here at [facility] for a nondisplaced pubic ring fracture. States that the pain in the R wrist is severe without medications, but currently improved after receiving medications. Was seen in the ER the day of her fall (08/05) -was discharged back and saw orthopedics as outpatient. Cast on the R wrist in place. Plan: Paroxysmal A. Fib Will give 5mg of Vitamin K orally x1 now recheck INR in AM she last took her Coumadin two days prior currently she is in NSR; cont. b-efrn would strongly consider stopping anticoagulation due to fall risk/debility Hx. of CAD as per records, OR in 2014 currently no chest pain continue statin, b-fern; restart aspirin when okay with surgery check an updated echo R wrist fracture plan for surgical intervention on 08/10/17 currently, she is stable reversing Coumadin, recheck INR in AM echo pending due to age, she is at moderate risk for surgery. NPO after midnight analgesics and DVT ppx as per ortho
[2017-08-09] MEDS ORDERED: POLYETHYLENE (MIRALAX) 17 GM PACK PO PRN (18:45)
[2017-08-09] MEDS: TRAMADOL HCL 50 MG TAB PO PRN (19:02)
--- NOTE | 2017-08-09 19:12 | DIAGNOSTIC IMAGING REPORT ---
CHEST 2 VIEWS ROUTINE HISTORY: Preop COMPARISON: Chest 03/25/2017. FINDINGS: No pneumothorax. A few right basilar linear densities. Large hiatus hernia, unchanged. The heart remains enlarged. No evidence for pulmonary edema. The left lung is essentially clear. IMPRESSION: 1. Stable mild cardiac lead. 2. Large hiatus hernia, unchanged. 3. A few linear densities at the right lung base. This is nonspecific but favors subsegmental atelectasis. Electronically signed by: Valdemar Palomares M.D. 08/09/2017 7:11 PM Dictated Date/Time: 08/09/2017 7:09 PM
--- NOTE | 2017-08-09 19:39 | Medical Consult ---
Consultation Date of Consultation: Aug 09, 2017. Attending Physician: Arsen Schroeder D.O. Reason for Consultation: Medical management, surgical clearance History of Present Illness Pt is 86 y/o F with PMH a-fib, HTN, hyperlipidemia, hypothyroidism, hx CVA with left sided weakness direct admission for pending R distal radius fracture repair tomorrow by Dr Schroeder. Pt was seen in ER on 08/05/17 after fall when lost balance when she turned around and fell. Denies hitting head. She had splint placed to R wrist at that time. Pt states has been taking some pain medication couple of times a day but still with some pain. Denies numbness/tingling of right hand fingers. C/O bruising to R arm, denies any worsening. Denies fever/ chills, diaphoresis, N/V/D, GOMEZ, dizziness, syncope, vision changes, neck pain, CP, SOB, orthopnea, palpitations, cough, sore throat, choking, otalgia, rhinorrhea, abdominal pain, paresthesias, rashes, urinary symptoms. Past Medical/Surgical History Medical Problems: (1) Acquired hypothyroidism Status: Chronic (2) Anemia Status: Resolved (3) Atrial fibrillation Status: Chronic (4) Benign essential hypertension Status: Chronic (5) Carcinoma of sigmoid colon Status: Resolved (6) Effusion, right knee Status: Resolved (7) Embolic cerebrovascular disease Status: Resolved (8) Fall Status: Resolved (9) Gastroenteritis Status: Resolved (10) H/O malignant neoplasm of endometrium Status: Chronic (11) H/O: CVA (cerebrovascular accident) Status: Chronic (12) Hyperlipidemia Status: Chronic (13) Hypothyroidism Status: Chronic (14) Multiple contusions Status: Resolved (15) Peripheral neuropathy Status: Chronic (16) Rhabdomyolysis Status: Resolved (17) STEMI (ST elevation myocardial infarction) Status: Resolved (18) Ultrasound scan abnormal Status: Resolved (19) Urinary incontinence Status: Chronic Surgical Problems: (1) S/P NICK-BSO Status: Chronic (2) Status post cholecystectomy Status: Chronic Family History Insignificant due to old age Social History Smoking Status: Never Smoker Smokeless Tobacco Use: No Alcohol Use: none Drug Use: none Marital Status: Housing Status: other ([facility]) Occupation Status: retired Allergies Coded Allergies: No Known Allergies (Verified , 03/25/17) Current Inpatient Medications Current Inpatient Medications Medications (Trade) Dose Ordered Sig/Josefina Route Start Time Stop Time Status Last Admin Dose Admin Miscellaneous Information (Nursing Verbal Med Order) 1 ea ONE ONCE N/A 08/09/17 15:15 08/09/17 15:16 UNV Ascorbic Acid (Vitamin C Tab) 500 mg DAILY PO 08/10/17 09:00 09/09/17 08:59 Tramadol HCl (Ultram Tab) `1-2 tabs for pain 1 tab ... Q4H PRN PO 08/09/17 15:45 09/08/17 15:44 Miscellaneous Information (Order Awaiting Action) 1 ea QS N/A 08/09/17 16:00 09/08/17 15:59 Citalopram Hydrobromide (celeXA TAB) 10 mg DAILY PO 08/10/17 09:00 09/09/17 08:59 Atorvastatin Calcium (Lipitor Tab) 80 mg QAM PO 08/10/17 09:00 09/09/17 08:59 Gabapentin (Neurontin Cap) 200 mg Q12 PO 08/09/17 21:00 09/08/17 20:59 Metoprolol Tartrate (Lopressor Tab) 12.5 mg BID PO 08/09/17 21:00 09/08/17 20:59 Cefazolin Sodium 15 ml @ 3.75 mls/ min PREOP IV 08/10/17 06:00 08/10/17 18:00 Review of Systems Constitutional: No fever, No chills, No sweats, No weight loss, No weakness Eyes: No eye pain, No redness ENT: + hearing loss (chronic hearing loss), No unusual epistaxis, No nasal symptoms, No sore throat Respiratory: No cough, No sputum, No wheezing, No shortness of breath Cardiovascular: No chest pain, No orthopnea, No PND Abdomen: No pain, No nausea, No vomiting, No diarrhea Musculoskeletal: + problem reported Genitourinary - Female: No dysuria, No urinary frequency, No urinary urgency Psychiatric: No depression symptoms, No anxiety Hematologic / Lymphatic: No night sweats Physical Exam Date Time Temp Pulse Resp B/P (MAP) Pulse Ox O2 Delivery O2 Flow Rate FiO2 08/09/17 15:25 36.5 63 18 155/82 (106) 93 Room Air 08/09/17 13:55 Room Air 08/09/17 13:25 36.7 68 16 126/62 (83) 93 Room Air General Appearance: WD/WN, no apparent distress Head: normocephalic, atraumatic Eyes: normal inspection, PERRL, EOMI, sclerae normal ENT: pharynx normal, + pertinent finding (mucous membranes moist. hard of hearing) Neck: supple, no JVD, trachea midline Respiratory/Chest: lungs clear, normal breath sounds, no respiratory distress, no accessory muscle use Cardiovascular: no edema, normal peripheral pulses, + irregularly irregular Abdomen/GI: normal bowel sounds, non tender, soft Extremities/Musculoskelatal: + pertinent finding (R forearm to hand in splint. +ecchymosis R upper arm. Pt able to move fingers, brisk capillary refill, sensation to light touch intact. R elbow and shoulder ROM intact. L arm with ROM intact. Bilateral pedal pushes and pulls intact. ) Neurologic/Psych: alert, normal mood/affect, + pertinent finding (oriented to person and place.) Skin: warm/dry Laboratory Results Last 24 Hours Test 08/09/17 14:08 08/09/17 14:54 White Blood Count 3.35 K/uL Red Blood Count 4.07 M/uL Hemoglobin 12.6 g/dL Hematocrit 39.9 % Mean Corpuscular Volume 98.0 fL Mean Corpuscular Hemoglobin 31.0 pg Mean Corpuscular Hemoglobin Concent 31.6 g/dl RDW Standard Deviation 47.1 fL RDW Coefficient of Variation 13.1 % Platelet Count 276 K/uL Mean Platelet Volume 10.0 fL Sodium Level 137 mmol/L Potassium Level 4.4 mmol/L Chloride Level 105 mmol/L Carbon Dioxide Level 29 mmol/L Anion Gap 3.0 mmol/L Blood Urea Nitrogen 26 mg/dl Creatinine 1.09 mg/dl Est Creatinine Clear Calc Drug Dose 34.6 ml/min Estimated GFR () 52.5 Estimated GFR (Non- 45.3 BUN/Creatinine Ratio 23.6 Random Glucose 82 mg/dl Calcium Level 8.4 mg/dl Assessment & Plan R DISTAL RADIUS FRACTURE Planned surgery 08/10/17. Has splint in place. Pt moderate surgical risk with age , hx CAD. CXR no acute infiltrate, no overload -pending echo -u/s carotids without significant stenosis -npo after midnight -pain management per ortho -DVT prophylaxis per ortho -recommend incentive spirometry after surgery -plan to monitor H&H for acute blood loss anemia after surgery PAROXYSMAL A-FIB Sinus rhythm, rate controlled at this time. Pt on coumadin. Reported it was held past 2 nights. INR: 1.6 - 5mg of Vitamin K orally -INR in am -continue metoprolol HX CAD 2014 [place]. No CP or SOB. -ortho holding ASA at this time. continue metoprolol, statin HX CVA Pt wtih residual weakness of L arm and leg. No GOMEZ or dizziness or increased weakness reported HYPOTHYROIDISM -pending TSH -continue levothyroxine PERIPHERAL NEUROPATHY -continue gabapentin DVT PROPHYLAXIS -per ortho DISPOSITION -admit med/surg -Full Code as per discussion with pt and family -Follows with at [place] Veronica Pt was seen with Dr Richard. See addendum Pt will be followed by Dr Rockwell remaining hospital course Additional Copies To Veronica Alexis
[2017-08-09] MEDS: METOPROLOL TARTRATE 25 MG TAB PO SCH (20:48)
[2017-08-09] MEDS: GABAPENTIN 100 MG CAP PO SCH (20:48)
[2017-08-09 20:52] VITALS: BP 153/81; PULSE 73
[2017-08-09 23:00] VITALS: BP 129/84; PULSE 65; TEMP 36.8; O2SAT 94
[2017-08-10] VITALS (10 sets, daily range): BP systolic 132–203; BP diastolic 78–86; PULSE 60–93; TEMP 36.3–36.8; O2SAT 90–94
[2017-08-10 05:56] LABS: HEMATOCRIT 39.1 % (37-47); HEMOGLOBIN 12.5 g/dL (12.0-16.0); MEAN CELL VOLUME 97.5 fL (80-100); MEAN CORPUSCULAR HEMOGLOBIN 31.2 pg (25-34); MEAN PLATELET VOLUME 9.9 fL (7.4-10.4); PLATELET COUNT 252 K/uL (130-400); RED CELL DISTRIBUTION WIDTH CV 13.1 % (11.5-14.5); RED CELL DISTRIBUTION WIDTH SD 46.6 fL (36.4-46.3); WHITE BLOOD COUNT 2.62 K/uL (4.8-10.8)
[2017-08-10] MEDS ORDERED: LEVOTHYROXINE 75 MCG TAB PO SCH (06:00)
[2017-08-10] MEDS ORDERED: CEFAZOLIN 2000MG IV PUSH 15 ML IV SCH (06:00)
[2017-08-10 06:12] LABS: INR 1.2 (0.9-1.1)
[2017-08-10 06:28] LABS: CALCIUM 8.7 mg/dl (8.5-10.1); CREATININE 0.91 mg/dl (0.60-1.20); POTASSIUM 4.1 mmol/L (3.5-5.1)
--- NOTE | 2017-08-10 07:56 | Clinical Documentation Query ---
CLINICAL DOCUMENTATION QUERY An 86 year old female with complaints of right wrist pain following a fall at [facility] with a GFR ranging from 43.8 to 56.3. In your clinical opinion is this patient being managed for: ( ) Chronic kidney disease, stage 3 ( ) Not Agree ( ) Other explanation of clinical findings (Please Explain) ( ) Unable to determine (Please Define) ( ) Need to Discuss DR. PAYTON IS FOLLOWING PATIENT IN CONSULTATION. PLEASE REFER TO HIM. GUSTAVO The medical record reflects the following clinical findings, treatment, and risk factors. Clinical Indicators: As above Treatment: Serial PRPs Risk Factors: Age, HTN, A-fib Please clarify and document your clinical opinion in the progress notes and discharge summary. Terms such as "probable", "suspected", "likely", "questionable", "possible", or "still to be ruled out" are acceptable. IF IN AGREEMENT, YOU MUST DOCUMENT ABOVE DIAGNOSTIC STATEMENT IN DAILY PROGRESS NOTES AND DISCHARGE SUMMARY. This document is not part of the patient's record. Thank You, Suha Guan RN [phone]
[2017-08-10] MEDS: METOPROLOL TARTRATE 25 MG TAB PO SCH ×2 (08:15→20:44)
[2017-08-10] MEDS ORDERED: ROPIVACAINE 0.5% 5 MG/ML 30 ML VIAL ONE (08:22)
[2017-08-10] MEDS ORDERED: ATORVASTATIN 40 MG TAB PO SCH (09:00)
[2017-08-10] MEDS ORDERED: CITALOPRAM 20 MG TAB PO SCH (09:00)
[2017-08-10] MEDS: GABAPENTIN 100 MG CAP PO SCH ×3 (09:00→20:44)
[2017-08-10] MEDS ORDERED: ASCORBIC ACID 500 MG TAB PO SCH (09:00)
--- NOTE | 2017-08-10 09:05 | Clinical Documentation Query ---
CLINICAL DOCUMENTATION QUERY An 86 year old female with complaints of right wrist pain following a fall at [facility] with a GFR ranging from 43.8 to 56.3. In your clinical opinion is this patient being managed for: ( ) Chronic kidney disease, stage 3 ( ) Not Agree ( ) Other explanation of clinical findings (Please Explain) ( ) Unable to determine (Please Define) ( ) Need to Discuss The medical record reflects the following clinical findings, treatment, and risk factors. Clinical Indicators: As above Treatment: Serial PRPs Risk Factors: Age, HTN, A-fib Please clarify and document your clinical opinion in the progress notes and discharge summary. Terms such as "probable", "suspected", "likely", "questionable", "possible", or "still to be ruled out" are acceptable. IF IN AGREEMENT, YOU MUST DOCUMENT ABOVE DIAGNOSTIC STATEMENT IN DAILY PROGRESS NOTES AND DISCHARGE SUMMARY. This document is not part of the patient's record. Thank You, Suha Guan RN [phone]
[2017-08-10] MEDS ORDERED: CLONIDINE HCL 100 MCG/ML SYRINGE ONE (09:17)
--- NOTE | 2017-08-10 09:36 | ECHOCARDIOGRAM REPORT ---
*NOTICE TO RECEIVING CONSTITUTION PARTY AGENCY This information is strictly Confidential and protected under [place] law. [place] law prohibits you from making any further disclosure of this information unless further disclosure is expressly permitted by the written consent of the person to whom it pertains or is authorized by law. A general authorization for the release of medical or other information is not sufficient for this purpose. Hospital accepts no responsibility if the information is made available to any other person, INCLUDING THE PATIENT. Interpretation Summary * Name: ROGELIO HO Study Date: 08/10/2017 06:41 AM BP: 166/82 mmHg * Patient Location: C.MSN\S\N375\S\2 HR: 60 * : 1930 (M/d/yyyy) Gender: Female Height: 64 in * Age: 86 yrs Ethnicity: CA Weight: 158 lb * Ordering Physician: Fermín Russo * Referring Physician: Veronica Alexis * Performed By: Nicky Alonzo RCS * * Reason For Study: Pre-Op Clearance, Hx of Valvular Heart Dz \T\ WV * BSA: 1.8 m2 * -- Conclusions -- * Proximal septal thickening is noted. * Left ventricular systolic function is low normal. * Grade I diastolic dysfunction, (abnormal relaxation pattern). * There are regional wall motion abnormalities as specified. * The left atrium is mildly dilated. * There is mild mitral regurgitation. * There is moderate tricuspid regurgitation. * The right atrium is moderately dilated. * When compared directly to an echocardiogram from 08/27/2014, the LV systolic function is not as vigorous, otherwise minimal change. Procedure Details * A complete two-dimensional transthoracic echocardiogram was performed (2D, M-mode, Doppler and color flow Doppler). Left Ventricle * The left ventricle is normal in size. * There is mild asymmetric left ventricular hypertrophy. * Proximal septal thickening is noted. * Ejection Fraction = 50-55%. * Left ventricular systolic function is low normal. * Grade I diastolic dysfunction, (abnormal relaxation pattern). * There are regional wall motion abnormalities as specified. * Appears to be severe hypokinesis of the basal posterior and inferior wall Right Ventricle * The right ventricle is normal in size and function. * The right ventricular systolic function is normal as assessed by tricuspid annular plane systolic excursion (TAPSE) (normal >1.5 cm). Atria * The left atrium is mildly dilated. * The right atrium is moderately dilated. Mitral Valve * The mitral valve is grossly normal. * There is mild mitral regurgitation. Tricuspid Valve * The tricuspid valve is not well visualized, but is grossly normal. * There is moderate tricuspid regurgitation. * Right ventricular systolic pressure is elevated at 30-40mmHg. Aortic Valve * The aortic valve is normal in structure and function. * No hemodynamically significant valvular aortic stenosis. * There is no significant aortic regurgitation. Great Vessels * The aortic root is normal size. Pericardium/Pleural * There is no pericardial effusion. Great Vessels * Normal inferior vena cava diameter and respiratory variation suggests normal central venous pressure. MMode 2D Measurements and Calculations IVSd 1.3 cm IVSs 1.6 cm LVIDd 4.9 cm LVIDs 4.0 cm LVPWd 1.0 cm LVPWs 1.2 cm IVS/LVPW 1.3 FS 18.0 % EDV(Teich) 112.1 ml ESV(Teich) 70.3 ml EF(Teich) 37.3 % EDV(cubed) 116.7 ml ESV(cubed) 64.4 ml EF(cubed) 44.9 % % IVS thick 23.6 % % LVPW thick 15.5 % LV mass(C)d 213.3 grams LV mass(C)dI 120.6 grams/m\S\2 LV mass(C)s 206.1 grams LV mass(C)sI 116.5 grams/m\S\2 SV(Teich) 41.8 ml SI(Teich) 23.6 ml/m\S\2 SV(cubed) 52.4 ml SI(cubed) 29.6 ml/m\S\2 Ao root diam 3.5 cm Ao root area 9.7 cm\S\2 ACS 1.7 cm LA dimension 4.4 cm LA/Ao 1.3 EDV(MOD-sp4) 83.7 ml ESV(MOD-sp4) 52.7 ml EF(MOD-sp4) 37.0 % EDV(MOD-sp2) 88.1 ml ESV(MOD-sp2) 44.8 ml EF(MOD-sp2) 49.2 % SV(MOD-sp4) 31.0 ml SI(MOD-sp4) 17.5 ml/m\S\2 SV(MOD-sp2) 43.4 ml SI(MOD-sp2) 24.5 ml/m\S\2 Doppler Measurements and Calculations MV E max ivone 57.8 cm/sec MV A max ivone 88.7 cm/sec MV E/A 0.65 MV P1/2t max ivone 70.7 cm/sec MV P1/2t 98.1 msec MVA(P1/2t) 2.2 cm\S\2 MV dec slope 211.3 cm/sec\S\2 MV dec time 0.26 sec Ao V2 max 113.8 cm/sec Ao max PG 5.2 mmHg Ao max PG (full) 1.8 mmHg LV V1 max PG 3.4 mmHg LV V1 max 92.1 cm/sec PA V2 max 66.7 cm/sec PA max PG 1.8 mmHg TR max ivone 288.1 cm/sec
[2017-08-10] MEDS ORDERED: FLUMAZENIL 0.1 MG/1 ML 10 ML VIAL IV PRN (09:45)
[2017-08-10] MEDS ORDERED: ATROPINE SULFATE 0.1 MG/ML 5ML SYR IV PRN (09:45)
[2017-08-10] MEDS ORDERED: PHENYLEPHRINE 100MCG/ML 5ML SYR IV PRN (09:45)
[2017-08-10] MEDS ORDERED: ONDANSETRON INJ 2 MG/ML 2 ML VIAL IV PRN ×2 (09:45→13:30)
[2017-08-10] MEDS ORDERED: LABETALOL HCL IV 5 MG/ML 20ML IV PRN (09:45)
[2017-08-10] MEDS ORDERED: FENTANYL CITRATE INJ 50 MCG/1 ML 2 ML VIAL IV PRN (09:45)
[2017-08-10] MEDS ORDERED: EpHEDrine SULFATE INJ 50 MG/ML AMP IV PRN (09:45)
[2017-08-10] MEDS ORDERED: HYDROmorphone INJ 2 MG/ML SYR/VIAL IV PRN (09:45)
[2017-08-10] MEDS ORDERED: MEPERIDINE HCL 25 MG/ML CARP IV PRN (09:45)
[2017-08-10] MEDS ORDERED: NALOXONE HCL 0.4 MG/1 ML VIAL/CARP IV PRN (09:45)
[2017-08-10] MEDS ORDERED: LIDOCAINE HCL 2% 2 ML VIAL (20MG/ML) ONE (09:46)
[2017-08-10] MEDS ORDERED: PROPOFOL IV EMULSION 10 MG/ML 20 ML VIAL IV ONE (09:46)
[2017-08-10] MEDS ORDERED: FENTANYL CITRATE INJ 50 MCG/1 ML 2 ML VIAL ONE (09:47)
[2017-08-10] MEDS ORDERED: BUPIVACAINE 0.5 % 5 MG/1 ML MPF 30ML VIAL ONE (09:50)
--- NOTE | 2017-08-10 10:05 | History & Physical Bridge Note ---
H&P Re-Evaluation Bridge Note: I have examined the patient, reviewed the History & Physical and in the interval since the performance of the History & Physical I have noted the following changes of clinical significance: No changes noted
[2017-08-10] MEDS ORDERED: BUPIVACAINE 0.25% 30 ML VIAL ONE (12:01)
[2017-08-10] MEDS ORDERED: KETAMINE HCL INJ 50 MG/ML 10 ML VIAL ONE (12:09)
--- NOTE | 2017-08-10 12:55 | [facility] Post Operative Brief Note ---
Immediate Operative Summary Operative Date Aug 10, 2017. Pre-Operative Diagnosis Right Displaced, Angulated, Intraarticular Distal Radius Fracture Post-Operative Diagnosis Right Displaced, Angulated, Intraarticular 4-part, Distal Radius Fracture Procedure(s) Performed Open Reduction Internal Fixation Right Displaced, Angulated, 4-part Intraarticular Distal Radius Fracture Surgeon Dr. Symone Schroeder Splunk Architect Surgeon(s) Joe Bocanegra PA-C Estimated Blood Loss 5ML Findings Consistent with Post-Op Diagnosis Specimens None per surgeon Drains None Anesthesia Type MAC Regional Complication(s) none Disposition Accompanied Pt To Recover: no Disposition: Recovery Room / PACU
[2017-08-10] MEDS ORDERED: POLYETHYLENE (MIRALAX) 17 GM PACK PO PRN (13:15)
[2017-08-10] MEDS ORDERED: ACETAMINOPHEN 325 MG TAB PO PRN (13:15)
[2017-08-10] MEDS ORDERED: ALUMINUM/MAGNESIUM/SIMETH (MAALOX MAX) 30 ML UDC PO PRN (13:30)
[2017-08-10] MEDS ORDERED: NO NSAIDS SCH (13:30)
--- NOTE | 2017-08-10 13:31 | Discharge Instructions ---
Discharge Instructions Date of Service Aug 10, 2017. Admission Reason for Admission: Right Distal Radius Fracture Discharge Discharge Diagnosis / Problem: right distal radius fracture Discharge Goals Goal(s): Decrease discomfort, Improve function Activity Recommendations Activity Level: OOB In Chair . Additional Information Patient informed of condition: Yes Advance Directives: Yes DNR: No Level of Care: Skilled Communicable Disease: No Prognosis: Stable Instructions / Follow-Up Instructions / Follow-Up ACTIVITY RECOMMENDATIONS: * Avoid lifting anything heavier than a medium water glass until your first post operative visit. SPECIAL CARE INSTRUCTIONS: * Your bandage should be left in place until your post op visit in 2 weeks. * Some drainage onto the dressing may occur. This is normal. * If the bandage feels excessively tight, you may loosen the elastic bandage. Then call the physician's office for further instructions. * If possible, keep your hand elevated above the level of your heart for the first 2 post operative days. You may use a sling if necessary. * You should move your fingers regularly (50-100 motions per hour) unless otherwise instructed. SPECIAL PRECAUTIONS: * If you notice increased drainage, fever over 101 degrees F. or severe, unremitting pain, call your physician/office at . * You may have been prescribed pain medication. If you experience nausea and/or skin rash, discontinue this medication and contact our office for an alternative medication. FOLLOW UP VISIT: If appointment is not already scheduled: Please call [facility] to make a follow-up appointment for 2 weeks after your surgery at . Current Hospital Diet Patient's current hospital diet: AHA Diet (Heart Healthy) Discharge Diet Recommended Diet: AHA Diet (Heart Healthy) Procedures Procedures Performed: Open Reduction Internal Fixation Right Displaced, Angulated, 4-part Intraarticular Distal Radius Fracture Pending Studies Studies pending at discharge: no Medical Emergencies . Who to Call and When: Medical Emergencies: If at any time you feel your situation is an emergency, please call 911 immediately. . Non-Emergent Contact Non-Emergency issues call your: Surgeon Call Non-Emergent contact if: temperature is above 101, your pain is not controlled, your pain is worsening . . "Provider Documentation" section prepared by Joe Bocanegra. . Core Measure Problem Core Measures: None
--- NOTE | 2017-08-10 13:37 | Anesthesiology Progress Note ---
Anesthesia Post Op Note Date & Time Aug 10, 2017 at 13:37 Vital Signs Pain Intensity: 0 Vital Signs Past 12 Hours Date Time Temp Pulse Resp B/P (MAP) Pulse Ox O2 Delivery O2 Flow Rate FiO2 08/10/17 13:35 36.4 60 16 156/82 92 Room Air 08/10/17 13:25 60 16 173/79 93 Room Air 08/10/17 13:15 62 16 161/65 92 Room Air 08/10/17 13:07 36.3 62 16 161/75 92 Room Air 08/10/17 10:09 36.8 58 18 161/63 (95) 91 Room Air 08/10/17 08:00 Room Air 08/10/17 07:36 36.3 60 16 166/82 (110) 91 Room Air Notes Mental Status: alert / awake / arousable, participated in evaluation Pt Amnestic to Procedure: Yes Nausea / Vomiting: adequately controlled Pain: adequately controlled Airway Patency, RR, SpO2: stable & adequate BP & HR: stable & adequate Hydration State: stable & adequate Anesthetic Complications: no major complications apparent The patient is stable and awake to her baseline status.
--- NOTE | 2017-08-10 13:42 | DIAGNOSTIC IMAGING REPORT ---
R WRIST 2 VIEW CLINICAL HISTORY: post op DISTAL RADIAL FRACTURE COMPARISON: None. DISCUSSION: The fine bony detail is obscured by an overlying plaster splint. There is an internally fixated distal radial fracture. A T-shaped metallic plate and multiple screws are evident. Fracture final alignment appears near-anatomic. Air within the soft tissues is felt 3. Postsurgical. IMPRESSION: Internally fixated distal radial fracture. Electronically signed by: kM Smiley M.D. 08/10/2017 1:41 PM Dictated Date/Time: 08/10/2017 1:40 PM
--- NOTE | 2017-08-10 13:46 | OPERATIVE REPORT ---
DATE OF OPERATION: 08/10/2017 PREOPERATIVE DIAGNOSIS: Right displaced intra-articular angulated 4-part distal radius fracture. POSTOPERATIVE DIAGNOSIS: Same. PROCEDURE PERFORMED: Open reduction external fixation, right displaced intra-articular angulated 4-part distal radius fracture. SURGEON: Dr. Schroeder. HOTEL LOBBY CONCIERGE: Joe Bocanegra PA-C. ANESTHESIA: Axillary with sedation. SPECIMENS: None. DRAINS: None. COMPLICATIONS: None. BLOOD LOSS: 5 mL. PERTINENT HISTORY: This is an 86-year-old female with a fall on right outstretched upper extremity. She had deformity and pain. She was seen in the Emergency Department and ultimately in the clinic. Radiographs were reviewed, the patient's history was reviewed and the patient was then scheduled for surgery as indicated. All potential risks, benefits, complications, alternatives, rehab, potential for incomplete relief of symptoms, need for further surgery, DVT, PE, , persistent pain, swelling, scarring, weakness, neurovascular injury, wound complications, hardware failure, nonunion, malunion and bone fracture discussed with the patient and the family. They all decided to proceed with the procedure as indicated. DESCRIPTION OF PROCEDURE: After axillary block was administered. the preop holding area, the patient then taken to the operative suite and placed supine on the operating room table. After review the consent and identification of proper operative site, the patient was sedated and monitored anesthesia care was then provided. Next, a tourniquet applied high on the right upper extremity over padding. The right upper extremity was then sterilely prepped and draped in usual fashion, elevated, and exsanguinated with an Esmarch bandage, tourniquet inflated to 250 mmHg. Next, a 15 blade scalpel was used to make an incision along the volar aspect of the radius just radial to the flexor carpi radialis. The incision was then deepened through subcutaneous tissue. Meticulous hemostasis was achieved with electrocautery. Full thickness skin flaps were developed. The superficial cutaneous nerves retracted and protected when possible followed by identification of the retinaculum was then incised along the skin incision. The neurovascular bundle was then identified and carefully retracted with Allis retractors and then the pronator quadratus was then incised along the radial border, elevating it from the volar aspect of the radial bone. Next, the fracture was clearly identified and appropriate retractors were placed around the fracture. This was noted that the 4-part intra-articular angulated and displaced distal radius fracture. Careful reduction maneuver was then performed with a freer elevator on the fracture with gentle traction to disimpact the dorsal portion of the fracture and realign it. Next, was copiously irrigated with sterile normal saline. A 0.062 inch K-wire was then placed into the radial styloid to stabilize the alignment of the fracture under live fluoroscopic assistance followed by application of a Synthes volar locking plate, placed under live fluoroscopic assistance. Multiple locking screws were applied and near anatomic reduction and fixation was then achieved. Final radiographs were obtained after removal of the 0.062 inch K wire, the wound was copiously irrigated with sterile normal saline. The pronator quadratus was then closed using 2-0 Vicryl, the dermis was closed using buried interrupted 3-0 Vicryl, skin was closed using nylon sutures. The incision site was then carefully infiltrated with approximately 10 mL of 0.25% Marcaine plain. The final radiographs obtained and a sterile compressive dressing and volar splint was applied overwrapped with an Jai wrap. The fingers were pink and warm. Radial pulses will be 2/4 after release of the tourniquet. The patient was then awakened. Tourniquet was released and the patient was then taken to the recovery area in stable condition. I attest to the content of the Intraoperative Record and any orders documented therein. Any exception s are noted below.
--- NOTE | 2017-08-10 13:53 | DIAGNOSTIC IMAGING REPORT ---
R WRIST 2 VIEWS CLINICAL HISTORY: ORIF RT WRIST. Right wrist fracture. Fluoroscopy time: 1 minute and 26 seconds area FINDINGS: 2 fluoroscopic spot images of the right wrist. There is a volar cortical plate transfixed with screws bridging the distal radius fracture. The alignment appears near-anatomic. The hardware appears intact. IMPRESSION: Fluoroscopy provided for internal fixation of a right distal radius fracture. Electronically signed by: Valdemar Palomares M.D. 08/10/2017 1:52 PM Dictated Date/Time: 08/10/2017 1:51 PM
[2017-08-10] MEDS ORDERED: DOCUSATE SODIUM 100 MG CAP PO PRN (14:45)
[2017-08-10] MEDS: POTASSIUM CHLORIDE INJ 10 MEQ in SODIUM CHLORIDE 0.9% 1000ML 1,000 ML IV SCH ×2 (15:24→17:36)
[2017-08-10] MEDS: WARFARIN SOD 5 MG TAB PO SCH (16:20)
[2017-08-10] MEDS: TRAMADOL HCL 50 MG TAB PO PRN (17:37)
[2017-08-10] MEDS: ASCORBIC ACID 500 MG TAB PO SCH (17:37)
--- NOTE | 2017-08-10 18:04 | Progress Note ---
Medicine Progress Note Date & Time of Visit: Aug 10, 2017 at 17:56. Subjective Pt was seen and examined Lying in bed with no distress Had surgery done today with no complication Objective Last 8 Hrs Date Time Temp Pulse Resp B/P (MAP) Pulse Ox O2 Delivery O2 Flow Rate FiO2 08/10/17 17:29 36.8 80 18 203/81 (121) 93 Room Air 08/10/17 16:29 36.7 69 18 188/86 (120) 92 Room Air 08/10/17 15:45 Room Air 08/10/17 15:08 36.5 70 16 183/85 (117) 91 Room Air 08/10/17 14:35 36.3 62 16 176/83 (114) 91 Room Air 08/10/17 14:05 91 Room Air 08/10/17 14:05 91 Room Air 08/10/17 13:55 67 16 173/89 92 Room Air 08/10/17 13:45 64 16 173/72 91 Room Air 08/10/17 13:35 36.4 60 16 156/82 92 Room Air 08/10/17 13:25 60 16 173/79 93 Room Air 08/10/17 13:15 62 16 161/65 92 Room Air 08/10/17 13:07 36.3 62 16 161/75 92 Room Air 08/10/17 10:09 36.8 58 18 161/63 (95) 91 Room Air Physical Exam: General- No acute distress Head- atraumatic Eyes- PERRL, EOMI ENT- oropharynx clear Neck- supple, no JVD Lungs- No wheezing Heart- regular rhythm Abdomen- normal bowel sounds, soft Extremities- no calf tenderness, right hand wrapped Neuro- alert, oriented, PERRL Skin- warm & dry Laboratory Results: Last 24 Hours Test 08/09/17 19:20 08/10/17 05:43 Urine Color YELLOW Urine Appearance CLEAR Urine pH 6.0 Urine Specific [place] 1.013 Urine Protein NEG Urine Glucose (UA) NEG Urine Ketones NEG Urine Occult Blood TRACE Urine Nitrite NEG Urine Bilirubin NEG Urine Urobilinogen NEG Urine Leukocyte Esterase TRACE Urine WBC (Auto) 1-5 /hpf Urine RBC (Auto) 0-4 /hpf Urine Hyaline Casts (Auto) 0 /lpf Urine Epithelial Cells (Auto) 20-30 /lpf Urine Bacteria (Auto) NEG White Blood Count 2.62 K/uL Red Blood Count 4.01 M/uL Hemoglobin 12.5 g/dL Hematocrit 39.1 % Mean Corpuscular Volume 97.5 fL Mean Corpuscular Hemoglobin 31.2 pg Mean Corpuscular Hemoglobin Concent 32.0 g/dl RDW Standard Deviation 46.6 fL RDW Coefficient of Variation 13.1 % Platelet Count 252 K/uL Mean Platelet Volume 9.9 fL Prothrombin Time 12.9 SECONDS Prothromb Time International Ratio 1.2 Sodium Level 137 mmol/L Potassium Level 4.1 mmol/L Chloride Level 104 mmol/L Carbon Dioxide Level 29 mmol/L Anion Gap 4.0 mmol/L Blood Urea Nitrogen 26 mg/dl Creatinine 0.91 mg/dl Est Creatinine Clear Calc Drug Dose 41.5 ml/min Estimated GFR () 65.3 Estimated GFR (Non- 56.3 BUN/Creatinine Ratio 28.5 Random Glucose 91 mg/dl Calcium Level 8.7 mg/dl Thyroid Stimulating Hormone (TSH) 14.800 uIu/ml Assessment & Plan R DISTAL RADIUS FRACTURE S/P Open Reduction Internal Fixation Right Displaced, Angulated, 4-part Intraarticular Distal Radius Fracture by Dr. Schroeder Continue incentive spirometry Monitor h/h Pain control PAROXYSMAL A-FIB Rate control on NSR Coumadin has been held for the procedure INR 1.2 today Continue metoprolol Resume Coumadin tomorrow ECHO done showed Proximal septal thickening is noted. * Left ventricular systolic function is low normal. * Grade I diastolic dysfunction, (abnormal relaxation pattern). * There are regional wall motion abnormalities as specified. * The left atrium is mildly dilated. * There is mild mitral regurgitation. * There is moderate tricuspid regurgitation. * The right atrium is moderately dilated. * When compared directly to an echocardiogram from 08/27/2014, the LV systolic function is not as vigorous, otherwise minimal change. HX CAD Asymptomatic continue metoprolol, statin Aspirin on hold for the procedure HX CVA Stable HYPOTHYROIDISM TSH above 14 Levothyroxine increased to 88mcg Check TSH in 4 to 6 weeks PERIPHERAL NEUROPATHY on gabapentin DVT PROPHYLAXIS -per ortho Current Inpatient Medications: Current Inpatient Medications Medications (Trade) Dose Ordered Sig/Josefina Route Start Time Stop Time Status Last Admin Dose Admin Tramadol HCl (Ultram Tab) `1-2 tabs for pain 1 tab ... Q4H PRN PO 08/09/17 15:45 09/08/17 15:44 08/10/17 17:37 100 MG Morphine Sulfate (MoRPHine SULFATE INJ) 1 mg Q2H PRN IV 08/09/17 17:30 08/23/17 17:29 Polyethylene (Miralax Powder Packet) 17 gm DAILY PRN PO 08/09/17 18:45 09/08/17 18:44 Levothyroxine Sodium (Synthroid Tab) 88 mcg DAILYBB PO 08/11/17 06:00 09/10/17 05:59 Acetaminophen (Tylenol Tab) 650 mg Q6H PRN PO 08/10/17 13:15 09/09/17 13:14 Ascorbic Acid (Vitamin C Tab) 500 mg BIDM PO 08/10/17 17:45 09/09/17 17:44 08/10/17 17:37 500 MG Aspirin (Ecotrin Tab) 81 mg QAM PO 08/11/17 09:00 09/10/17 08:59 Atorvastatin Calcium (Lipitor Tab) 80 mg PM PO 08/10/17 21:00 09/09/17 20:59 Citalopram Hydrobromide (celeXA TAB) 10 mg DAILY PO 08/11/17 09:00 09/10/17 08:59 Gabapentin (Neurontin Cap) 200 mg TID PO 08/10/17 16:00 09/09/17 15:59 08/10/17 16:20 200 MG Magnesium Hydroxide (Milk Of Magnesia Susp) 30 ml DAILY PRN PO 08/11/17 09:00 09/10/17 08:59 Metoprolol Tartrate (Lopressor Tab) 12.5 mg BID PO 08/10/17 21:00 09/09/17 20:59 Polyethylene (Miralax Powder Packet) 17 gm DAILY PRN PO 08/10/17 13:15 09/09/17 13:14 Sodium Biphosphate/ Sodium Phosphate (Fleet Enema) 132 ml DAILY PRN [place] 08/11/17 09:00 09/10/17 08:59 Warfarin Sodium (Coumadin Tab) 2.5 mg TuTh@1600 PO 08/14/17 16:00 09/13/17 15:59 Warfarin Sodium (Coumadin Tab) 5 mg SuMoWeFr@1600 PO 08/10/17 16:00 09/09/17 15:59 08/10/17 16:20 5 MG Docusate Sodium (coLACE CAP) 100 mg DAILY PRN PO 08/10/17 14:45 09/09/17 14:44 Acetaminophen/ Hydrocodone Bitart ([place] 5/325 Tab) 1 tab Q4HWA PRN PO 08/10/17 13:15 08/24/17 13:14 Potassium Chloride 10 meq/ Sodium Chloride 1,005 ml @ 100 mls/hr Q10H3M IV 08/10/17 15:00 09/09/17 13:20 08/10/17 17:36 100 MLS/HR Miscellaneous Medication (No Nsaids) 1 ea UD N/A 08/10/17 13:30 09/09/17 13:29 Diphenhydramine HCl (Benadryl Cap) 25 mg Q8H PRN PO 08/10/17 13:30 09/09/17 13:29 Al Hydrox/Mg Hydrox/Simethicone (Maalox Max Susp) 15 ml Q4H PRN PO 08/10/17 13:30 09/09/17 13:29 Ondansetron HCl (Zofran Inj) 4 mg Q6H PRN IV 08/10/17 13:30 09/09/17 13:29 Cefazolin Sodium 2000 mg/Syringe 15 ml @ 3.75 mls/ min Q8H IV 08/10/17 20:00 08/11/17 04:03 Enoxaparin Sodium (Lovenox Inj) 40 mg DAILY SQ 08/11/17 09:00 09/10/17 08:59
[2017-08-10] MEDS: HYDROCODONE/ACETAMIN 5/325MG TAB PO PRN (19:26)
[2017-08-10] MEDS: CEFAZOLIN IV 2,000 MG in SYRINGE 5 ML IV SCH (20:37)
[2017-08-10] MEDS: ATORVASTATIN 40 MG TAB PO SCH (20:44)
[2017-08-11] VITALS (7 sets, daily range): BP systolic 132–183; BP diastolic 70–88; PULSE 67–83; TEMP 36.7–36.9; O2SAT 93–96
[2017-08-11] MEDS: POTASSIUM CHLORIDE INJ 10 MEQ in SODIUM CHLORIDE 0.9% 1000ML 1,000 ML IV SCH ×3 (03:01→23:28)
[2017-08-11] MEDS: CEFAZOLIN IV 2,000 MG in SYRINGE 5 ML IV SCH (03:01)
[2017-08-11] MEDS: LEVOTHYROXINE 88 MCG TAB PO SCH (05:33)
[2017-08-11] MEDS ORDERED: LEVOTHYROXINE 75 MCG TAB PO SCH (06:00)
[2017-08-11] MEDS: HYDROCODONE/ACETAMIN 5/325MG TAB PO PRN (08:42)
[2017-08-11] MEDS: GABAPENTIN 100 MG CAP PO SCH ×3 (08:43→21:13)
[2017-08-11] MEDS: METOPROLOL TARTRATE 25 MG TAB PO SCH ×2 (08:43→21:13)
[2017-08-11] MEDS: ASCORBIC ACID 500 MG TAB PO SCH ×2 (08:44→17:55)
[2017-08-11] MEDS: ASPIRIN 81 MG ECTAB PO SCH (08:44)
[2017-08-11] MEDS: CITALOPRAM 20 MG TAB PO SCH (08:44)
[2017-08-11] MEDS: ENOXAPARIN 40 MG/0.4 ML SYR SQ SCH (08:45)
[2017-08-11] MEDS ORDERED: MAGNESIUM HYDROXIDE SUSP 30 ML UDC PO PRN (09:00)
[2017-08-11] MEDS ORDERED: SOD PHOSPHATE/SOD BIPHOSPHATE ENEMA 132 ML BTL PR PRN (09:00)
--- NOTE | 2017-08-11 09:11 | Orthopedic Progress Note ---
Orthopedic Progress Note Date of Service Aug 11, 2017. Subjective Post OP Day: 1 Reports: feeling well, Denies: chest pain, SOB, nausea / vomiting, light headedness, calf pain Additional Notes: SITTING IN CHAIR, SEEMS TIRED. STATES SHE'S HAVING PAIN BUT SHE'S HAVING DIFFICULTY KEEPING HER EYES OPEN AND FALLS ASLEEP DURING CONVERSATION. Objective calves soft nontender, N/V intact, capillary refill less than 2 sec. FINGERS MOBILE, SENSATION INTACT. WEARING SLING. Date Time Temp Pulse Resp B/P (MAP) Pulse Ox O2 Delivery O2 Flow Rate FiO2 08/11/17 08:15 Room Air 08/11/17 07:10 36.9 83 17 160/70 (100) 93 Room Air 08/11/17 03:52 36.8 72 18 142/88 (106) 96 Room Air 08/11/17 00:07 Room Air 08/10/17 23:25 36.7 68 16 133/78 (96) 94 Room Air 08/10/17 22:20 141/80 (100) 08/10/17 20:49 83 132/82 (99) 90 Room Air 08/10/17 19:04 36.3 93 18 171/80 (110) 92 Room Air 08/10/17 17:29 36.8 80 18 203/81 (121) 93 Room Air 08/10/17 16:29 36.7 69 18 188/86 (120) 92 Room Air 08/10/17 15:45 Room Air 08/10/17 15:08 36.5 70 16 183/85 (117) 91 Room Air 08/10/17 14:35 36.3 62 16 176/83 (114) 91 Room Air 08/10/17 14:05 91 Room Air 08/10/17 14:05 91 Room Air 08/10/17 13:55 67 16 173/89 92 Room Air 08/10/17 13:45 64 16 173/72 91 Room Air 08/10/17 13:35 36.4 60 16 156/82 92 Room Air 08/10/17 13:25 60 16 173/79 93 Room Air 08/10/17 13:15 62 16 161/65 92 Room Air 08/10/17 13:07 36.3 62 16 161/75 92 Room Air 08/10/17 10:09 36.8 58 18 161/63 (95) 91 Room Air Assessment & Plan Assessment: POD#1 SP ORIF R WRIST Plan: [place]. CONTINUE TRAMADOL AND TYLENOL COUMADIN/[facility] MEDICAL MANAGEMENT RETURN TO [facility] [place].
[2017-08-11] MEDS ORDERED: ULT50X PO ×2 (09:15)
[2017-08-11] MEDS ORDERED: ACET-1257 PO ×2 (09:15)
[2017-08-11] MEDS ORDERED: LVNIS40 SQ ×2 (09:15)
[2017-08-11] MEDS: TRAMADOL HCL 50 MG TAB PO PRN ×2 (11:04→22:30)
[2017-08-11] MEDS: ACETAMINOPHEN 500 MG TAB PO SCH ×3 (11:21→23:29)
[2017-08-11] MEDS ORDERED: SYN88 PO ×2 (15:04)
--- NOTE | 2017-08-11 16:50 | Progress Note ---
Medicine Progress Note Date & Time of Visit: Aug 11, 2017 at 16:38. Subjective Pt was seen and examined Sitting in chair with no distress with daughter present Pt said that she is having pain in her right wrist She is unable to keep her eyes open Talked to hospice case manager and said that pt will need insurance approval before going back to [facility] It seems like insurance approval will occur on Sunday denies any chest pain, palpitation, dizziness and SOB Objective Last 8 Hrs Date Time Temp Pulse Resp B/P (MAP) Pulse Ox O2 Delivery O2 Flow Rate FiO2 08/11/17 11:23 36.8 70 16 132/74 (93) 95 Room Air Physical Exam: General- No acute distress Head- atraumatic Eyes- PERRL, EOMI ENT- oropharynx clear Neck- supple, no JVD Lungs- No wheezing Heart- regular rhythm Abdomen- normal bowel sounds, soft Extremities- no calf tenderness, right hand wrapped Neuro- alert, oriented, PERRL Skin- warm & dry Assessment & Plan R DISTAL RADIUS FRACTURE S/P day#1 Open Reduction Internal Fixation Right Displaced, Angulated, 4-part Intraarticular Distal Radius Fracture by Dr. Schroeder Continue incentive spirometry Hgb stable Pain control PAROXYSMAL A-FIB Rate control on NSR Coumadin has been held for the procedure Coumadin restart Continue metoprolol Check INR in am ECHO done showed Proximal septal thickening is noted. * Left ventricular systolic function is low normal. * Grade I diastolic dysfunction, (abnormal relaxation pattern). * There are regional wall motion abnormalities as specified. * The left atrium is mildly dilated. * There is mild mitral regurgitation. * There is moderate tricuspid regurgitation. * The right atrium is moderately dilated. * When compared directly to an echocardiogram from 08/27/2014, the LV systolic function is not as vigorous, otherwise minimal change. HX CAD Asymptomatic continue metoprolol, statin Aspirin on hold for the procedure Will resume aspirin HX CVA Stable HYPOTHYROIDISM TSH above 14 Continue levothyroxine 88mcg Check TSH in 4 to 6 weeks PERIPHERAL NEUROPATHY on gabapentin DVT PROPHYLAXIS On lovenox for now until INR above 2 on Coumadin Current Inpatient Medications: Current Inpatient Medications Medications (Trade) Dose Ordered Sig/Josefina Route Start Time Stop Time Status Last Admin Dose Admin Tramadol HCl (Ultram Tab) `1-2 tabs for pain 1 tab ... Q4H PRN PO 08/09/17 15:45 09/08/17 15:44 08/11/17 11:04 50 MG Morphine Sulfate (MoRPHine SULFATE INJ) 1 mg Q2H PRN IV 08/09/17 17:30 08/23/17 17:29 Polyethylene (Miralax Powder Packet) 17 gm DAILY PRN PO 08/09/17 18:45 09/08/17 18:44 Levothyroxine Sodium (Synthroid Tab) 88 mcg DAILYBB PO 08/11/17 06:00 09/10/17 05:59 08/11/17 05:33 88 MCG Ascorbic Acid (Vitamin C Tab) 500 mg BIDM PO 08/10/17 17:45 09/09/17 17:44 08/11/17 08:44 500 MG Aspirin (Ecotrin Tab) 81 mg QAM PO 08/11/17 09:00 09/10/17 08:59 08/11/17 08:44 81 MG Atorvastatin Calcium (Lipitor Tab) 80 mg PM PO 08/10/17 21:00 09/09/17 20:59 08/10/17 20:44 80 MG Citalopram Hydrobromide (celeXA TAB) 10 mg DAILY PO 08/11/17 09:00 09/10/17 08:59 08/11/17 08:44 10 MG Gabapentin (Neurontin Cap) 200 mg TID PO 08/10/17 16:00 09/09/17 15:59 08/11/17 14:07 200 MG Magnesium Hydroxide (Milk Of Magnesia Susp) 30 ml DAILY PRN PO 08/11/17 09:00 09/10/17 08:59 Metoprolol Tartrate (Lopressor Tab) 12.5 mg BID PO 08/10/17 21:00 09/09/17 20:59 08/11/17 08:43 12.5 MG Polyethylene (Miralax Powder Packet) 17 gm DAILY PRN PO 08/10/17 13:15 09/09/17 13:14 Sodium Biphosphate/ Sodium Phosphate (Fleet Enema) 132 ml DAILY PRN [place] 08/11/17 09:00 09/10/17 08:59 Warfarin Sodium (Coumadin Tab) 2.5 mg TuTh@1600 PO 08/14/17 16:00 09/13/17 15:59 Warfarin Sodium (Coumadin Tab) 5 mg SuMoWeFr@1600 PO 08/10/17 16:00 09/09/17 15:59 08/10/17 16:20 5 MG Docusate Sodium (coLACE CAP) 100 mg DAILY PRN PO 08/10/17 14:45 09/09/17 14:44 Potassium Chloride 10 meq/ Sodium Chloride 1,005 ml @ 100 mls/hr Q10H3M IV 08/10/17 15:00 09/09/17 13:20 08/11/17 12:52 100 MLS/HR Miscellaneous Medication (No Nsaids) 1 ea UD N/A 08/10/17 13:30 09/09/17 13:29 Diphenhydramine HCl (Benadryl Cap) 25 mg Q8H PRN PO 08/10/17 13:30 09/09/17 13:29 Al Hydrox/Mg Hydrox/Simethicone (Maalox Max Susp) 15 ml Q4H PRN PO 08/10/17 13:30 09/09/17 13:29 Ondansetron HCl (Zofran Inj) 4 mg Q6H PRN IV 08/10/17 13:30 09/09/17 13:29 Enoxaparin Sodium (Lovenox Inj) 40 mg DAILY SQ 08/11/17 09:00 09/10/17 08:59 08/11/17 08:45 40 MG Acetaminophen (Tylenol Tab) 1,000 mg Q8@0000,0800,1600 PO 08/11/17 10:30 09/10/17 10:29 08/11/17 15:45 1,000 MG
[2017-08-11] MEDS: ATORVASTATIN 40 MG TAB PO SCH (21:13)
[2017-08-12 05:06] VITALS: BP 154/84; PULSE 67
[2017-08-12] MEDS: LEVOTHYROXINE 88 MCG TAB PO SCH (05:08)
[2017-08-12 07:00] VITALS: BP 172/80; PULSE 70; TEMP 36.6; O2SAT 96
[2017-08-12 07:30] LABS: HEMATOCRIT 36.9 % (37-47); HEMOGLOBIN 11.8 g/dL (12.0-16.0); MEAN CELL VOLUME 96.3 fL (80-100); MEAN CORPUSCULAR HEMOGLOBIN 30.8 pg (25-34); MEAN PLATELET VOLUME 10.2 fL (7.4-10.4); PLATELET COUNT 247 K/uL (130-400); RED CELL DISTRIBUTION WIDTH SD 45.7 fL (36.4-46.3); WHITE BLOOD COUNT 2.89 K/uL (4.8-10.8)
[2017-08-12] MEDS: ACETAMINOPHEN 500 MG TAB PO SCH ×3 (07:41→23:45)
[2017-08-12] MEDS: ASCORBIC ACID 500 MG TAB PO SCH ×2 (07:44→18:11)
[2017-08-12] MEDS: GABAPENTIN 100 MG CAP PO SCH ×3 (07:44→20:47)
[2017-08-12] MEDS: METOPROLOL TARTRATE 25 MG TAB PO SCH ×2 (07:47→20:46)
[2017-08-12] MEDS: ASPIRIN 81 MG ECTAB PO SCH (07:48)
[2017-08-12] MEDS: CITALOPRAM 20 MG TAB PO SCH (07:48)
[2017-08-12 07:51] LABS: INR 1.1 (0.9-1.1)
[2017-08-12 08:00] VITALS: O2SAT 96
[2017-08-12 08:04] LABS: CALCIUM 8.6 mg/dl (8.5-10.1); CREATININE 0.7 mg/dl (0.60-1.20); POTASSIUM 3.9 mmol/L (3.5-5.1)
[2017-08-12] MEDS: ENOXAPARIN 40 MG/0.4 ML SYR SQ SCH (08:55)
[2017-08-12] MEDS: POTASSIUM CHLORIDE INJ 10 MEQ in SODIUM CHLORIDE 0.9% 1000ML 1,000 ML IV SCH ×2 (09:18→19:40)
--- NOTE | 2017-08-12 09:25 | Orthopedic Progress Note ---
Orthopedic Progress Note Date of Service Aug 12, 2017. Subjective Post OP Day: 2 Reports: feeling well, Denies: chest pain, SOB, nausea / vomiting, light headedness, calf pain Additional Notes: COMPLAINING OF SOME PAIN. HAS NOT HAD MEDS SINCE LATE LAST EVENING. Objective calves soft nontender, N/V intact, splint C/D/I, capillary refill less than 2 sec., A&O x3 Date Time Temp Pulse Resp B/P (MAP) Pulse Ox O2 Delivery O2 Flow Rate FiO2 08/12/17 08:00 96 Room Air 08/12/17 07:00 36.6 70 16 172/80 (110) 96 Room Air 08/12/17 05:06 67 154/84 (107) 08/11/17 23:26 Room Air 08/11/17 22:50 36.7 67 16 169/86 (113) 93 Room Air 08/11/17 22:33 170/78 (108) 08/11/17 21:12 68 183/84 (117) 08/11/17 15:30 Room Air 08/11/17 15:30 36.8 68 14 135/79 (97) 94 Room Air 08/11/17 11:23 36.8 70 16 132/74 (93) 95 Room Air Laboratory Results 24 Hours: Test 08/12/17 06:43 Hematocrit 36.9 % Hemoglobin 11.8 g/dL Prothromb Time International Ratio 1.1 Prothrombin Time 11.4 SECONDS Assessment & Plan Assessment: POD#2 SP ORIF R WRIST Plan: [place]. CONTINUE TRAMADOL AND TYLENOL COUMADIN/[facility]OVENOX MEDICAL MANAGEMENT RETURN TO [facility] [place]ON [place]. NEEDS AUTH. INSURANCE CO NOT AVAILABLE UNTIL SUNDAY
[2017-08-12] MEDS: TRAMADOL HCL 50 MG TAB PO PRN (09:29)
[2017-08-12 14:53] VITALS: BP 146/74; PULSE 72; TEMP 36.8; O2SAT 95
--- NOTE | 2017-08-12 15:19 | Progress Note ---
Medicine Progress Note Date & Time of Visit: Aug 12, 2017 at 15:14. Subjective Pt was seen and examined Sitting in chair with no distress with family member at bedside She is more a wake today Pt said that she is having tenderness in the right wrist Denies any chest pain, palpitation, dizziness and SOB Objective Last 8 Hrs Date Time Temp Pulse Resp B/P (MAP) Pulse Ox O2 Delivery O2 Flow Rate FiO2 08/12/17 14:53 36.8 72 18 146/74 (98) 95 Room Air 08/12/17 08:00 96 Room Air Physical Exam: General- No acute distress Head- atraumatic Eyes- PERRL, EOMI ENT- oropharynx clear Neck- supple, no JVD Lungs- No wheezing Heart- regular rhythm Abdomen- normal bowel sounds, soft Extremities- no calf tenderness, right hand wrapped Neuro- alert, oriented, PERRL Skin- warm & dry Laboratory Results: Last 24 Hours Test 08/12/17 06:43 White Blood Count 2.89 K/uL Red Blood Count 3.83 M/uL Hemoglobin 11.8 g/dL Hematocrit 36.9 % Mean Corpuscular Volume 96.3 fL Mean Corpuscular Hemoglobin 30.8 pg Mean Corpuscular Hemoglobin Concent 32.0 g/dl RDW Standard Deviation 45.7 fL RDW Coefficient of Variation 13.0 % Platelet Count 247 K/uL Mean Platelet Volume 10.2 fL Prothrombin Time 11.4 SECONDS Prothromb Time International Ratio 1.1 Sodium Level 138 mmol/L Potassium Level 3.9 mmol/L Chloride Level 106 mmol/L Carbon Dioxide Level 27 mmol/L Anion Gap 5.0 mmol/L Blood Urea Nitrogen 14 mg/dl Creatinine 0.70 mg/dl Est Creatinine Clear Calc Drug Dose 54.0 ml/min Estimated GFR () 89.7 Estimated GFR (Non- 77.4 BUN/Creatinine Ratio 19.3 Random Glucose 98 mg/dl Calcium Level 8.6 mg/dl Assessment & Plan R DISTAL RADIUS FRACTURE S/P day#1 Open Reduction Internal Fixation Right Displaced, Angulated, 4-part Intraarticular Distal Radius Fracture by Dr. Schroeder Continue incentive spirometry Hgb 11.8 Tramadol for pain Follow up with Ortho btw 1 to 2 weeks PAROXYSMAL A-FIB Rate control on NSR Coumadin has been held for the procedure Continue metoprolol Continue Coumadin INR 1.1 Check INR in am ECHO done showed Proximal septal thickening is noted. * Left ventricular systolic function is low normal. * Grade I diastolic dysfunction, (abnormal relaxation pattern). * There are regional wall motion abnormalities as specified. * The left atrium is mildly dilated. * There is mild mitral regurgitation. * There is moderate tricuspid regurgitation. * The right atrium is moderately dilated. * When compared directly to an echocardiogram from 08/27/2014, the LV systolic function is not as vigorous, otherwise minimal change. HX CAD Asymptomatic continue metoprolol, statin Aspirin on hold for the procedure Will resume aspirin HX CVA Stable HYPOTHYROIDISM TSH above 14 Continue levothyroxine 88mcg Check TSH in 4 to 6 weeks PERIPHERAL NEUROPATHY on gabapentin DVT PROPHYLAXIS On lovenox for now until INR above 2 on Coumadin Current Inpatient Medications: Current Inpatient Medications Medications (Trade) Dose Ordered Sig/Josefina Route Start Time Stop Time Status Last Admin Dose Admin Tramadol HCl (Ultram Tab) `1-2 tabs for pain 1 tab ... Q4H PRN PO 08/09/17 15:45 09/08/17 15:44 08/12/17 09:29 100 MG Morphine Sulfate (MoRPHine SULFATE INJ) 1 mg Q2H PRN IV 08/09/17 17:30 08/23/17 17:29 Polyethylene (Miralax Powder Packet) 17 gm DAILY PRN PO 08/09/17 18:45 09/08/17 18:44 Levothyroxine Sodium (Synthroid Tab) 88 mcg DAILYBB PO 08/11/17 06:00 09/10/17 05:59 08/12/17 05:08 88 MCG Ascorbic Acid (Vitamin C Tab) 500 mg BIDM PO 08/10/17 17:45 09/09/17 17:44 08/12/17 07:44 500 MG Aspirin (Ecotrin Tab) 81 mg QAM PO 08/11/17 09:00 09/10/17 08:59 08/12/17 07:48 81 MG Atorvastatin Calcium (Lipitor Tab) 80 mg PM PO 08/10/17 21:00 09/09/17 20:59 08/11/17 21:13 80 MG Citalopram Hydrobromide (celeXA TAB) 10 mg DAILY PO 08/11/17 09:00 09/10/17 08:59 08/12/17 07:48 10 MG Gabapentin (Neurontin Cap) 200 mg TID PO 08/10/17 16:00 09/09/17 15:59 08/12/17 13:42 200 MG Magnesium Hydroxide (Milk Of Magnesia Susp) 30 ml DAILY PRN PO 08/11/17 09:00 09/10/17 08:59 Metoprolol Tartrate (Lopressor Tab) 12.5 mg BID PO 08/10/17 21:00 09/09/17 20:59 08/12/17 07:47 12.5 MG Polyethylene (Miralax Powder Packet) 17 gm DAILY PRN PO 08/10/17 13:15 09/09/17 13:14 Sodium Biphosphate/ Sodium Phosphate (Fleet Enema) 132 ml DAILY PRN [place] 08/11/17 09:00 09/10/17 08:59 Warfarin Sodium (Coumadin Tab) 2.5 mg TuTh@1600 PO 08/14/17 16:00 09/13/17 15:59 Warfarin Sodium (Coumadin Tab) 5 mg SuMoWeFr@1600 PO 08/10/17 16:00 09/09/17 15:59 08/10/17 16:20 5 MG Docusate Sodium (coLACE CAP) 100 mg DAILY PRN PO 08/10/17 14:45 09/09/17 14:44 Potassium Chloride 10 meq/ Sodium Chloride 1,005 ml @ 100 mls/hr Q10H3M IV 08/10/17 15:00 09/09/17 13:20 08/12/17 09:18 100 MLS/HR Miscellaneous Medication (No Nsaids) 1 ea UD N/A 08/10/17 13:30 09/09/17 13:29 Diphenhydramine HCl (Benadryl Cap) 25 mg Q8H PRN PO 08/10/17 13:30 09/09/17 13:29 Al Hydrox/Mg Hydrox/Simethicone (Maalox Max Susp) 15 ml Q4H PRN PO 08/10/17 13:30 09/09/17 13:29 Ondansetron HCl (Zofran Inj) 4 mg Q6H PRN IV 08/10/17 13:30 09/09/17 13:29 Enoxaparin Sodium (Lovenox Inj) 40 mg DAILY SQ 08/11/17 09:00 09/10/17 08:59 08/12/17 08:55 40 MG Acetaminophen (Tylenol Tab) 1,000 mg Q8@0000,0800,1600 PO 08/12/17 16:00 09/10/17 10:29
[2017-08-12] MEDS: WARFARIN SOD 5 MG TAB PO SCH (15:47)
[2017-08-12] MEDS: ATORVASTATIN 40 MG TAB PO SCH (20:46)
[2017-08-12 23:10] VITALS: BP 171/79; PULSE 70; TEMP 36.6; O2SAT 93
[2017-08-12 23:47] VITALS: BP 164/76
[2017-08-13] VITALS (7 sets, daily range): BP systolic 116–160; BP diastolic 60–85; PULSE 61–75; TEMP 36.5–36.6; O2SAT 93–96
[2017-08-13] MEDS: POTASSIUM CHLORIDE INJ 10 MEQ in SODIUM CHLORIDE 0.9% 1000ML 1,000 ML IV SCH (05:20)
[2017-08-13] MEDS: LEVOTHYROXINE 88 MCG TAB PO SCH (05:20)
--- NOTE | 2017-08-13 06:05 | Clinical Documentation Query ---
CLINICAL DOCUMENTATION QUERY An 86 year old female with complaints of right wrist pain following a fall at [employer], In your clinical opinion is this patient being managed for: ( ) Chronic diastolic (congestive) heart failure ( ) Not Agree ( ) Other explanation of clinical findings (Please Explain) ( ) Unable to determine (Please Define) ( ) Need to Discuss The medical record reflects the following clinical findings, treatment, and risk factors. Clinical Indicators: Echo = Grade I diastolic dysfunction; EF = 50-55% Treatment: Echo Risk Factors: Age, A-fib Please clarify and document your clinical opinion in the progress notes and discharge summary. Terms such as "probable", "suspected", "likely", "questionable", "possible", or "still to be ruled out" are acceptable. IF IN AGREEMENT, YOU MUST DOCUMENT ABOVE DIAGNOSTIC STATEMENT IN DAILY PROGRESS NOTES AND DISCHARGE SUMMARY. This document is not part of the patient's record. Thank You, Suha Guan RN [phone]
--- NOTE | 2017-08-13 07:59 | Orthopedic Progress Note ---
Orthopedic Progress Note Date of Service Aug 13, 2017. Subjective Post OP Day: 4 Reports: feeling well, Denies: chest pain, SOB, nausea / vomiting, light headedness, calf pain Objective calves soft nontender, N/V intact, splint C/D/I, capillary refill less than 2 sec., A&O x3 MILD EDEMA AT THE ELBOW, JUST ABOVE THE SPLINT. I LOOSENED THE RITESH WRAP A BIT THIS AM. FINGERS MOBILE, DENIES NUMBNESS/TINGLING. Date Time Temp Pulse Resp B/P (MAP) Pulse Ox O2 Delivery O2 Flow Rate FiO2 08/13/17 07:54 36.5 63 24 137/85 (102) 96 Room Air 08/12/17 23:47 164/76 (105) 08/12/17 23:34 Room Air 08/12/17 23:10 36.6 70 16 171/79 (109) 93 Room Air 08/12/17 15:25 Room Air 08/12/17 14:53 36.8 72 18 146/74 (98) 95 Room Air 08/12/17 08:00 96 Room Air Laboratory Results 24 Hours: Test 08/13/17 07:45 Assessment & Plan Assessment: POD#3 SP ORIF R WRIST Plan: [place]. CONTINUE TRAMADOL AND TYLENOL COUMADIN/[facility]OX MEDICAL MANAGEMENT RETURN TO [facility] [place]ON [place]. NEEDS AUTH. INSURANCE CO NOT AVAILABLE UNTIL SUNDAY STABLE FOR TRANSFER TODAY IF APPROVED.
[2017-08-13] MEDS: ACETAMINOPHEN 500 MG TAB PO SCH (08:59)
[2017-08-13] MEDS: ASPIRIN 81 MG ECTAB PO SCH (09:00)
[2017-08-13] MEDS: ASCORBIC ACID 500 MG TAB PO SCH (09:00)
[2017-08-13] MEDS: CITALOPRAM 20 MG TAB PO SCH (09:00)
[2017-08-13 09:01] LABS: INR 1.1 (0.9-1.1)
[2017-08-13] MEDS: GABAPENTIN 100 MG CAP PO SCH ×2 (09:01→13:20)
[2017-08-13] MEDS: ENOXAPARIN 40 MG/0.4 ML SYR SQ SCH (09:01)
[2017-08-13] MEDS: METOPROLOL TARTRATE 25 MG TAB PO SCH (09:05)
[2017-08-13] MEDS ORDERED: ULT50X PO ×2 (11:30)
[2017-08-14] MEDS ORDERED: WARFARIN SOD 2.5 MG TAB PO SCH (16:00)
--- NOTE | 2017-08-16 16:56 | Discharge Summary ---
Orthopedic Discharge Summary Admission Date/Reason Aug 09, 2017 at 12:46 Right Distal Radius Fracture. Discharge Date/Disposition Aug 13, 2017 group home facility Diagnosis Principal Diagnosis: right distal radius fracture Procedure(s) Performed Open reduction external fixation, right displaced intra-articular angulated 4-part distal radius fracture Consultations Medicine Medication Reconciliation New Medications: Acetaminophen (Tylenol Extra Strength) 500 Mg Tab 500 MG PO Q8 for 30 Days Enoxaparin (Enoxaparin Sodium) 40 Mg/0.4 Ml Inj 40 MG SQ DAILY for 5 Days Levothyroxine Sodium (Synthroid) 88 Mcg Tab 88 MCG PO DAILYBB for 30 Days, TAB Tramadol HCl (Tramadol HCl) 50 Mg Tab 50-100 MG PO Q4H PRN for Pain, #60 TAB Continued Medications: Ascorbic Acid (Vitamin C) 500 Mg Tab 1 TAB PO BIDM for 30 Days Aspirin (Aspirin EC Low Dose) 81 Mg Ectab 81 MG PO QAM for 30 Days Atorvastatin (Lipitor) 40 Mg Tab 80 MG PO PM for 30 Days, TAB Citalopram Hydrobromide (Celexa) 10 Mg Tab 10 MG PO DAILY, TAB Docusate Sodium (Docusate Sodium) 100 Mg Tab 1 CAP PO DAILY PRN for Constipation Gabapentin (Neurontin) 100 Mg Cap 200 MG PO TID, CAP Magnesium Hydroxide (Milk of Magnesia) 30 Ml Susp 30 ML PO DAILY for Constipation Metoprolol Tartrate (Lopressor) 25 Mg Tab 12.5 MG PO BID for 30 Days, #30 TAB Polyethylene (Miralax) 17 Gm Pow 17 GM PO DAILY PRN for Constipation for 30 Days Sodium Phosphates (Fleet Enema Six Pack) 1 Pamela Pamela 1 [place] DAILY for Constipation Warfarin Sod (Jantoven) 5 Mg Tab 1 TAB PO [id number] Warfarin Sod (Jantoven) 2.5 Mg Tab 2.5 MG PO TW, TAB SUNDAY/SUNDAY Discontinued Medications: Acetaminophen Tab (Tylenol) 325 Mg Tab 650 MG PO Q6H for Pain or Fever, TAB Hydrocodone/Acetaminophen 5MG/325MG (Watkins 5MG/325MG) Tab 1 TAB PO Q6H PRN for Pain for 30 Days, #90 TAB PRN PAIN Ibuprofen (Motrin) 400 Mg Tab 400 MG PO Q6H PRN for Pain, TAB Levothyroxine Sodium (Synthroid) 75 Mcg Tab 75 MCG PO DAILYBB for 30 Days, TAB Admission Physical Exam As per Admitting History & Physical. Hospital Course The patient was admitted on 2..18 for medical management and optimizing for surgery on 2.18. On 2..18, she underwent the above noted procedure. She progressed well over POD #1, #2 and #3. On POD #3, insurance authorization was received and the patient was transferred to [facility]. Discharge Instructions Please refer to the electronic Patient Visit Report (Discharge Instructions) for additional information. ACTIVITY RECOMMENDATIONS: * Avoid lifting anything heavier than a medium water glass until your first post operative visit. SPECIAL CARE INSTRUCTIONS: * Your bandage should be left in place until your first follow up . * Some drainage onto the dressing may occur. This is normal. * If the bandage feels excessively tight, you may loosen the elastic bandage. Then call the physician's office for further instructions. * If possible, keep your hand elevated above the level of your heart for the first 2 post operative days. You may use a sling if necessary. * You should move your fingers regularly (50-100 motions per hour) unless otherwise instructed. SPECIAL PRECAUTIONS: * If you notice increased drainage, fever over 101 degrees F. or severe, unremitting pain, call your physician/office at . * You may have been prescribed pain medication. If you experience nausea and/or skin rash, discontinue this medication and contact our office for an alternative medication. FOLLOW UP VISIT: If appointment is not already scheduled: Please call [facility] to make a follow-up appointment after your surgery at .
== END 2017-08-13 14:39 | DRG 511 ==
LOC: C.MSN 12:46
PROVIDERS: ADMIT Orthopaedic Surgery Sports Medicine; ATTEND Orthopaedic Surgery Sports Medicine
PROC: 0PSH04Z Reposition Right Radius with Internal Fixation Device, Open Approach (ICD-10-PCS; principal; 2017-08-10 10:15)
DX: S52.571A Other intraarticular fracture of lower end of right radius, initial encounter for closed fracture (principal); I69.954 Hemiplegia and hemiparesis following unspecified cerebrovascular disease affecting left non-dominant side; E03.9 Hypothyroidism, unspecified; I10 Essential (primary) hypertension; I48.0 Paroxysmal atrial fibrillation; Z85.038 Personal history of other malignant neoplasm of large intestine; Z85.42 Personal history of malignant neoplasm of other parts of uterus; G62.9 Polyneuropathy, unspecified; E78.5 Hyperlipidemia, unspecified; R32 Unspecified urinary incontinence; Z79.82 Long term (current) use of aspirin; Z79.01 Long term (current) use of anticoagulants; I25.10 Atherosclerotic heart disease of native coronary artery without angina pectoris; I25.2 Old myocardial infarction; Y92.129 Unspecified place in nursing home as the place of occurrence of the external cause; W19.XXXA Unspecified fall, initial encounter

== ENCOUNTER → 2017-08-09 | Outpatient (CLI) | payer OTHER ==
[2017-08-09 09:11] LABS: INR 1.6 (0.9-1.1)
== END ==
LOC: C.LABCC 08:42
PROVIDERS: ATTEND Internal Medicine
DX: I48.91 Unspecified atrial fibrillation (principal)

== ENCOUNTER → 2017-08-17 | Outpatient (CLI) | payer OTHER ==
[~2017-08-17] MED LIST changes: +ACET-1257 PO; -INSU100I SC; +LVNIS40 SQ; +MOMLX PO; +SODI1ENE PR; -SYN75 PO; +SYN88 PO; +ULT50X PO
[2017-08-17 18:21] LABS: INR 1.6 (0.9-1.1)
== END ==
LOC: C.LABCC 17:12
PROVIDERS: ATTEND Internal Medicine
DX: I48.91 Unspecified atrial fibrillation (principal)

== ENCOUNTER → 2017-08-18 | Outpatient (CLI) | payer OTHER ==
[2017-08-18 16:07] LABS: INR 1.6 (0.9-1.1)
== END ==
LOC: C.LABCC 12:55
PROVIDERS: ATTEND Internal Medicine
DX: I48.91 Unspecified atrial fibrillation (principal)

== ENCOUNTER → 2017-08-22 | Outpatient (CLI) | payer OTHER ==
[2017-08-22 10:06] LABS: INR 1.5 (0.9-1.1)
== END ==
LOC: C.LABCC 09:35
PROVIDERS: ATTEND Internal Medicine
DX: I48.91 Unspecified atrial fibrillation (principal)

== ENCOUNTER → 2017-08-23 | Outpatient (CLI) | payer OTHER | LOC: C.LABCC 18:03 | PROVIDERS: ATTEND Internal Medicine | DX: R30.0 Dysuria (principal) ==

== ENCOUNTER → 2017-08-27 | Outpatient (CLI) | payer OTHER ==
[2017-08-27 12:49] LABS: INR 2.1 (0.9-1.1)
== END ==
LOC: C.LABCC 11:50
PROVIDERS: ATTEND Internal Medicine
DX: I48.91 Unspecified atrial fibrillation (principal)

== ENCOUNTER → 2017-09-03 | Outpatient (CLI) | payer OTHER ==
[2017-09-03 09:37] LABS: INR 2.9 (0.9-1.1)
== END ==
LOC: C.LABCC 09:02
PROVIDERS: ATTEND Internal Medicine
DX: I48.91 Unspecified atrial fibrillation (principal)

== ENCOUNTER → 2017-09-11 | Outpatient (CLI) | payer OTHER ==
[2017-09-11 08:36] LABS: INR 4.3 (0.9-1.1)
== END ==
LOC: C.LABCC 07:43
PROVIDERS: ATTEND Internal Medicine
DX: I48.91 Unspecified atrial fibrillation (principal)

== ENCOUNTER → 2017-09-13 | Outpatient (CLI) | payer OTHER ==
[2017-09-13 10:11] LABS: INR 1.7 (0.9-1.1)
== END ==
LOC: C.LABCC 08:11
PROVIDERS: ATTEND Internal Medicine
DX: I48.91 Unspecified atrial fibrillation (principal)

== ENCOUNTER → 2017-09-18 | Outpatient (CLI) | payer OTHER ==
[~2017-09-18] MED LIST changes: +ATOR-26 PO; +BISA10SU5 RE; +LINICRE61 TOP; +TRAM-10 PO
== END ==
LOC: C.LABCC 10:01
PROVIDERS: ATTEND Internal Medicine
DX: I48.91 Unspecified atrial fibrillation (principal)

== ENCOUNTER 2017-09-20 22:45 | Emergency (ER) | payer OTHER ==
[~2017-09-20] VITALS: Ht 160 cm; Wt 63.0 kg
[~2017-09-20 22:45] MED LIST changes: -ATOR-26 PO; -BISA10SU5 RE; -LINICRE61 TOP; -TRAM-10 PO
[2017-09-20 22:53] VITALS: TEMP 36.4; Ht 160 cm; Wt 63.0 kg
[2017-09-20] MEDS ORDERED: ATOR-26 PO (23:11)
[2017-09-20] MEDS ORDERED: LINICRE61 TOP (23:13)
[2017-09-20] MEDS ORDERED: SODIUM CHLORIDE 0.9% 1000ML 1,000 ML IV STA (23:16)
[2017-09-20] MEDS ORDERED: BISA10SU5 RE (23:17)
[2017-09-20] MEDS ORDERED: TRAM-10 PO (23:24)
--- NOTE | 2017-09-20 23:26 | EMERGENCY ROOM VISIT NOTE ---
History Report prepared by Emma: Poonam Parkinson Under the Supervision of: Dr. Meagan Dixon M.D. First contact with patient: 23:04 Chief Complaint: HYPOTENSION Stated Complaint: HYPOTENSION History of Present Illness The patient is a 87 year old female who presents to the Emergency Room with complaints of hypotension occurring prior to arrival. The patient is a resident at [facility] who noted that the patient was hypotensive today. The patient reports feeling fatigued for the last 2 days. She denies having nausea, chest pressure, shortness of breath, fevers, and diarrhea. She also reports that she has not been eating or drinking. The patient states that she has had trouble urinating, but denies burning. The patient reports a history of a cholecystectomy. Per family, the patient has a history of a colon resection, but states that the patient has not had an appendectomy. Her family states that the patient has been in atrial fibrillation since August after she had a heart attack and stroke. Her family states that the patient has a history of urinary tract infections. Per family, the patient is 5 weeks post-operative from a radial fracture and states that she is on Coumadin now. Her family states that they do not believe that the patient has had recent falls since the radial fracture. Source of History: patient, family Onset: prior to arrival Position: other (global) Quality: other (hypotension ) Associated Symptoms: + urinary symptoms (trouble urinating ), + fatigue, No fevers, No chest pain (chest pressure ), No SOB, No nausea, No diarrhea Review of Systems See HPI for pertinent positives & negatives. A total of 10 systems reviewed and were otherwise negative. Past Medical & Surgical Medical Problems: (1) Acquired hypothyroidism (2) Anemia (3) Atrial fibrillation (4) Benign essential hypertension (5) Carcinoma of sigmoid colon (6) Effusion, right knee (7) Embolic cerebrovascular disease (8) Fall (9) Gastroenteritis (10) H/O malignant neoplasm of endometrium (11) H/O: CVA (cerebrovascular accident) (12) Hyperlipidemia (13) Hypothyroidism (14) Multiple contusions (15) Peripheral neuropathy (16) Radial fracture (17) Rhabdomyolysis (18) STEMI (ST elevation myocardial infarction) (19) Ultrasound scan abnormal (20) Urinary incontinence Surgical Problems: (1) History of colon resection (2) S/P NICK-BSO (3) Status post cholecystectomy Family History Insignificant due to old age Social History Smoking Status: Never Smoker Alcohol Use: none Drug Use: none Marital Status: Housing Status: [facility] Occupation Status: retired Current/Historical Medications Scheduled Acetaminophen (Tylenol Extra Strength), 500 MG PO Q8 Ascorbic Acid (Vitamin C), 1 TAB PO BIDM Aspirin (Aspirin EC Low Dose), 81 MG PO QAM Atorvastatin (Lipitor), 80 MG PO QPM Citalopram Hydrobromide (Celexa), 10 MG PO DAILY Gabapentin (Neurontin), 200 MG PO TID Levothyroxine Sodium (Synthroid), 88 MCG PO DAILYBB Menthol-Methyl Salicylate (Kenia (Bengay Greaseless), 1 APPL TOP UD Metoprolol Tartrate (Lopressor), 12.5 MG PO BID Warfarin Sod (Jantoven), 5 MG PO DAILY Scheduled PRN Bisacodyl (Bisacodyl), 10 MG RE UD PRN for Constipation Docusate Sodium (Docusate Sodium), 100 MG PO DAILY PRN for Constipation Magnesium Hydroxide (Milk of Magnesia), 30 ML PO DAILY PRN for Constipation Polyethylene (Miralax), 17 GM PO DAILY PRN for Constipation Sodium Phosphates (Fleet Enema Six Pack), 1 DE UD PRN for Constipation Tramadol (Ultram), 50 MG PO Q4H PRN for Pain Allergies Coded Allergies: No Known Allergies (Verified , 09/20/17) Physical Exam Vital Signs Date Time Temp Pulse Resp B/P (MAP) Pulse Ox O2 Delivery O2 Flow Rate FiO2 09/21/17 03:25 55 24 113/84 98 Room Air 09/21/17 02:53 44 09/21/17 01:00 52 20 108/52 95 Room Air 09/21/17 00:25 50 20 102/63 94 Room Air 09/20/17 23:42 60 14 102/63 97 Room Air 09/20/17 23:09 65 09/20/17 22:53 36.4 65 16 97/61 96 Room Air Physical Exam Vital signs reviewed. General: Well-appearing female, in no significant distress. HEENT: No scleral icterus, PERRLA, neck supple. Atraumatic. Cardiovascular: Regular rate with occasional ectopy, no extra sounds. Pulmonary: Clear to auscultation bilaterally, normal work of breathing. Abdomen: Soft, nontender, distended, positive tympany, positive bowel sounds. Musculoskeletal: Atraumatic, no peripheral edema. Neurologic: Patient somnolent, but awakes easily. Pleasantly confused, but aware of place. Equal strength in all 4 extremities. Cranial nerves 2 through 12 grossly intact. Skin: Warm, dry, no rash Medical Decision & Procedures ER Provider Diagnostic Interpretation: Radiology results as stated below per my review and [facility]. CT HEAD: Encephalomalacia in the right frontal lobe is consistent with an old infarct. No acute infarct. Generalized atrophy. Stable chronic small vessel ischemic disease. No acute intracranial hemorrhage. Scattered foci of gas within the cavernous sinus could be iatrogenic, from recent injection. There are tiny foci of gas which appear to extend into the sella and could represent a small communicating branch from the cavernous sinus. Recommend correlation with trauma or surgery. Infection is thought to be unlikely. Radiology results as stated below per my review. Chest/Abdomen X-Ray: Cardiomegaly, lung consolidation noted at the right perihilum that appears to be chronic. Large hiatal hernia. Moderate fecal retention with no free air and no evidence of obstruction. CT ABDOMEN & PELVIS With Contrast: Comparison: 07/18/11. IMPRESSION: No acute findings. INCIDENTAL FINDINGS: Bibasilar scarring/atelectasis. Large hiatal hernia is stable. Nonspecific hypodensity with calcification in the right hepatic lobe. Likely benign given stability since 2011. Prior cholecystectomy. Stable thickening of the adrenal glands bilaterally. Prior surgical anastomoses sites involving 2 different areas and small bowel. No dilated loops of bowel to suggest obstruction. Atherosclerosis of the aorta without evidence of aneurysm. Chronic appearing left inferior pubic ramus fracture. Degenerative changes in the spine. Laboratory Results 09/20/17 23:00 Red Blood Count 3.86, Mean Corpuscular Volume 97.2, Mean Corpuscular Hemoglobin 30.8, Mean Corpuscular Hemoglobin Concent 31.7, Mean Platelet Volume 10.1, Neutrophils (%) (Auto) 65.8, Lymphocytes (%) (Auto) 17.5, Monocytes (%) (Auto) 13.6, Eosinophils (%) (Auto) 2.2, Basophils (%) (Auto) 0.7, Neutrophils # (Auto ) 2.66, Lymphocytes # (Auto) 0.71, Monocytes # (Auto) 0.55, Eosinophils # (Auto ) 0.09, Basophils # (Auto) 0.03 09/20/17 23:00 Test 09/20/17 23:00 09/20/17 23:45 White Blood Count 4.05 K/uL (4.8-10.8) Red Blood Count 3.86 M/uL (4.2-5.4) Hemoglobin 11.9 g/dL (12.0-16.0) Hematocrit 37.5 % (37-47) Mean Corpuscular Volume 97.2 fL (80-100) Mean Corpuscular Hemoglobin 30.8 pg (25-34) Mean Corpuscular Hemoglobin Concent 31.7 g/dl (32-36) Platelet Count 237 K/uL (130-400) Mean Platelet Volume 10.1 fL (7.4-10.4) Neutrophils (%) (Auto) 65.8 % Lymphocytes (%) (Auto) 17.5 % Monocytes (%) (Auto) 13.6 % Eosinophils (%) (Auto) 2.2 % Basophils (%) (Auto) 0.7 % Neutrophils # (Auto) 2.66 K/uL (1.4-6.5) Lymphocytes # (Auto) 0.71 K/uL (1.2-3.4) Monocytes # (Auto) 0.55 K/uL (0.11-0.59) Eosinophils # (Auto) 0.09 K/uL (0-0.5) Basophils # (Auto) 0.03 K/uL (0-0.2) RDW Standard Deviation 49.1 fL (36.4-46.3) RDW Coefficient of Variation 13.8 % (11.5-14.5) Immature Granulocyte % (Auto) 0.2 % Immature Granulocyte # (Auto) 0.01 K/uL (0.00-0.02) Nucleated RBC Absolute Count (auto) 0.02 K/uL (0-0) Nucleated Red Blood Cells % 0.5 % Prothrombin Time 24.1 SECONDS (9.0-12.0) Prothromb Time International Ratio 2.3 (0.9-1.1) Activated Partial Thromboplast Time 31.8 SECONDS (21.0-31.0) Partial Thromboplastin Ratio 1.2 Anion Gap 9.0 mmol/L (3-11) Est Creatinine Clear Calc Drug Dose 24.2 ml/min Estimated GFR () 38.2 Estimated GFR (Non- 32.9 BUN/Creatinine Ratio 25.3 (10-20) Calcium Level 8.3 mg/dl (8.5-10.1) Magnesium Level 2.1 mg/dl (1.8-2.4) Total Bilirubin 0.3 mg/dl (0.2-1) Direct Bilirubin 0.1 mg/dl (0-0.2) Aspartate Amino Transf (AST/SGOT) 19 U/L (15-37) Alanine Aminotransferase (ALT/SGPT) 27 U/L (12-78) Alkaline Phosphatase 121 U/L (45-117) Total Creatine Kinase 81 U/L (26-192) Creatine Kinase MB 2.4 ng/ml (0.5-3.6) Creatine Kinase MB Ratio 3.0 (0-3.0) Total Protein 6.1 gm/dl (6.4-8.2) Albumin 3.0 gm/dl (3.4-5.0) Thyroid Stimulating Hormone (TSH) 3.780 uIu/ml (0.300-4.500) Free Thyroxine 1.08 ng/dl (0.80-1.60) Free Triiodothyronine 2.37 pg/ml (2.30-4.20) Urine Color YELLOW Urine Appearance CLOUDY (CLEAR) Urine pH 5.5 (4.5-7.5) Urine Specific Burt 1.008 (1.000-1.030) Urine Protein NEG (NEG) Urine Glucose (UA) NEG (NEG) Urine Ketones NEG (NEG) Urine Occult Blood NEG (NEG) Urine Nitrite NEG (NEG) Urine Bilirubin NEG (NEG) Urine Urobilinogen NEG (NEG) Urine Leukocyte Esterase NEG (NEG) Urine WBC (Auto) 1-5 /hpf (0-5) Urine RBC (Auto) 0-4 /hpf (0-4) Urine Hyaline Casts (Auto) 1-5 /lpf (0-5) Urine Epithelial Cells (Auto) 0-5 /lpf (0-5) Urine Bacteria (Auto) NEG (NEG) Laboratory results per my review. Medications Administered Medications (Trade) Dose Ordered Sig/Josefina Route Start Time Stop Time Status Last Admin Dose Admin Sodium Chloride 1,000 ml @ 125 mls/hr Q8H STAT IV 09/20/17 23:16 09/21/17 04:31 DC 09/21/17 00:25 125 MLS/HR Sodium Chloride 250 ml @ 999 mls/hr Q16M STAT IV 09/21/17 01:59 09/21/17 02:14 DC 09/21/17 01:59 999 MLS/HR ECG Per My Interpretation Indication: weakness Rate (beats per minute): 65 Rhythm: sinus with SA Findings: T-wave inversion (Inferior), other (previous inferior infarct, no acute ST segment changes, left ventricular hypertrophy ) ED Course 2314: Past medical records reviewed. The patient was evaluated in room A11B. A complete history and physical examination was performed. 2316: Ordered Sodium Chloride 1,000 ml @ 125 mls/hr IV. 0159: Ordered Sodium Chloride 250 ml @ 999 mls/hr IV. 0211: I checked on the patient and reevaluated her. 0405: Upon reevaluation, the patient appeared to have improvement of her symptoms. I discussed findings with her and her family. They verbalized agreement of the treatment plan. She was discharged home. Medical Decision Differential diagnosis: Etiologies such as metabolic, infection, hypo/hyperglycemia, electrolyte abnormalities, cardiac sources, intracerebral event, toxicologic, neurologic, as well as others were entertained. This pt was evaluated and appeared to be in no distress. IV access was obtained and lab work was drawn. Pt was hydrated with NSS. CT head reveals no acute intracranial abnl. Lab work reveals an elevated creatinine at 1.41. UA is negative for infection. There is no identifiable cause of the fatigue recently other than perhaps the beta blockers she is taking. The bradycardia and hypotension are mild, but likely the cause of the fatigue. She is clinically improved. Pt [facility] be [facility] for further management and close f/u with PCP. She will return to the ED for worsening of symptoms or any medical concerns. Medication Reconcilliation Current Medication List: was personally reviewed by me Blood Pressure Screening Patient's blood pressure: Low blood pressure Blood pressure disposition: Referred to PCP Impression Primary Impression: Hypotension Additional Impressions: Bradycardia Dehydration Scribe Attestation The scribe's documentation has been prepared under my direction and personally reviewed by me in its entirety. I confirm that the note above accurately reflects all work, treatment, procedures, and medical decision making performed by me. Departure Information Dispostion Home / Self-Care Referrals Veronica Alexis (PCP) Forms HOME CARE DOCUMENTATION FORM, IMPORTANT VISIT INFORMATION, WORK / SCHOOL INSTRUCTIONS Patient Instructions My [facility] [employer] Additional Instructions Diagnosis: Hypotension, dehydration, bradycardia Consider cutting back the metoprolol dosing. Please discuss with your physician. Increase p.o. fluids as much as possible. Have laboratory work repeated within 1 week to evaluate the creatinine as it is slightly elevated today. Follow-up with your primary care physician within the next several days for reevaluation. Return to the ER for worsening of symptoms or any medical concerns. Problem Qualifiers
[2017-09-20 23:33] LABS: BASO % 0.7 %; BASO ABS # 0.03 K/uL (0-0.2); EOS % 2.2 %; EOS ABS # 0.09 K/uL (0-0.5); HEMATOCRIT 37.5 % (37-47); HEMOGLOBIN 11.9 g/dL (12.0-16.0); IG# 0.01 K/uL (0.00-0.02); LYMPH % 17.5 %; LYMPH ABS # 0.71 K/uL (1.2-3.4); MEAN CELL VOLUME 97.2 fL (80-100); MEAN CORPUSCULAR HEMOGLOBIN 30.8 pg (25-34); MEAN CORPUSCULAR HGB CONC 31.7 g/dl (32-36); MEAN PLATELET VOLUME 10.1 fL (7.4-10.4); MONO % 13.6 %; MONO ABS # 0.55 K/uL (0.11-0.59); NEUT % 65.8 %; NEUT ABS # 2.66 K/uL (1.4-6.5); NUCLEATED RED BLOOD CELL ABS 0.02 K/uL (0-0); PLATELET COUNT 237 K/uL (130-400); RED CELL DISTRIBUTION WIDTH CV 13.8 % (11.5-14.5); RED CELL DISTRIBUTION WIDTH SD 49.1 fL (36.4-46.3); WHITE BLOOD COUNT 4.05 K/uL (4.8-10.8)
[2017-09-20 23:43] LABS: INR 2.3 (0.9-1.1); PTT PATIENT 31.8 SECONDS (21.0-31.0)
[2017-09-20 23:51] LABS: CALCIUM 8.3 mg/dl (8.5-10.1); CREATININE 1.41 mg/dl (0.60-1.20); POTASSIUM 4.1 mmol/L (3.5-5.1)
[2017-09-20 23:59] LABS: CKMB 2.4 ng/ml (0.5-3.6); TOTAL PROTEIN 6.1 gm/dl (6.4-8.2)
[2017-09-21] MEDS ORDERED: SODIUM CHLORIDE 0.9% 250ML 250 ML IV STA (01:59)
[2017-09-21] MEDS ORDERED: OPTIRAY 320 IV PRN (02:15)
[2017-09-21 03:25] VITALS: BP 113/84; PULSE 55; O2SAT 98
--- NOTE | 2017-09-21 07:03 | DIAGNOSTIC IMAGING REPORT ---
CT OF THE HEAD WITHOUT CONTRAST CLINICAL HISTORY: Altered mental status. Hypotension. COMPARISON STUDY: Head CT March 25, 2017. CT DOSE: 537.48 mGy.cm TECHNIQUE: Helical axial images of the head were obtained without IV contrast. Automated exposure control was utilized for the study. A dose lowering technique was utilized adhering to the principles of ALARA. FINDINGS: No acute intracranial hemorrhage, midline shift or mass effect is present. Encephalomalacia within the right frontal lobe is unchanged and represents an old infarct. Mild ventricular dilatation is unchanged and due to atrophy. White matter hypodensities represent small vessel disease. There are no findings to suggest acute dural sinus thrombosis or acute territorial infarct. There are no significant calvarial abnormalities. Gas within the cavernous sinus and sella is likely related to IV. There is mild mucosal thickening of the right sphenoid sinus. Mastoid air cells are clear. IMPRESSION: 1. No acute intracranial findings. No change in appearance of the brain. 2. Gas within the cavernous sinus and sella which is venous in location likely related to IV. Electronically signed by: Jorge Vincent M.D. 09/21/2017 7:01 AM Dictated Date/Time: 09/21/2017 6:58 AM
--- NOTE | 2017-09-21 07:30 | DIAGNOSTIC IMAGING REPORT ---
PA CHEST RADIOGRAPH AND UPRIGHT AND SUPINE AP RADIOGRAPHS OF THE ABDOMEN CLINICAL HISTORY: Abdominal distention. COMPARISON STUDY: CT of the abdomen and pelvis 04/17/2012 and chest radiograph August 09, 2017. FINDINGS: There is no pneumothorax or pleural effusion. Moderate cardiomegaly is noted. A large hiatal hernia is present. Linear bibasilar opacities suggest atelectasis. There is no consolidation to suggest pneumonia. There is no free air. The bowel gas pattern is normal. There are bowel anastomoses and surgical clips. An old left inferior pubic ramus fracture is noted. IMPRESSION: 1. No free air or evidence of bowel obstruction. 2. No acute cardiopulmonary findings. Electronically signed by: Jorge Vincent M.D. 09/21/2017 7:28 AM Dictated Date/Time: 09/21/2017 7:27 AM
--- NOTE | 2017-09-21 07:42 | DIAGNOSTIC IMAGING REPORT ---
CT SCAN OF THE ABDOMEN AND PELVIS WITH IV CONTRAST CLINICAL HISTORY: Right upper quadrant abdominal pain. COMPARISON STUDY: Abdominal CT dated 07/18/2011. Abdominal radiographs dated 09/20/2017. TECHNIQUE: Following the IV administration of 93 cc of Optiray 320, CT scan of the abdomen and pelvis is performed from the lung bases to the proximal femora. Images are reviewed in the axial, sagittal, and coronal planes. IV contrast was administered without complication. A dose lowering technique was utilized adhering to the principles of ALARA. The examination is degraded by motion artifact, as well as by streak artifact from the arms which could not be elevated above the abdomen. CT DOSE: 648.63 mGy.cm FINDINGS: Lung bases: The heart is enlarged and trace pericardial effusion. The coronary arteries are densely calcified. The lung bases are clear noting bibasilar scarring/atelectasis. There is a large hiatal hernia, with the majority the stomach located in the thorax. There is an indeterminant 1.1 cm nodular density in the right breast seen on image #23. Liver: The contrast-enhanced liver is normal in size, contour, and attenuation. There is no intrahepatic biliary ductal dilatation. The hepatic veins and portal veins are patent. A cluster of calcifications with overlying capsular defect is seen in the right hepatic lobe on image #136. This is unchanged from 2012 and is of indeterminant but doubtful significance. Gallbladder: Surgically absent. Spleen: Normal in size and attenuation. Pancreas: Atrophic and grossly unremarkable. Adrenal glands: Bilateral adrenal adenomas are unchanged dating back to 2011 and measure up to 1.8 cm. Kidneys: The contrast enhanced kidneys are atrophic and without hydronephrosis. The kidneys enhance symmetrically. Foci of cortical scarring are present in the lower poles of both kidneys. Abdominal vasculature: The abdominal aorta is normal in course and caliber noting advanced atherosclerotic calcification. Bowel: There is moderate colonic fecal retention. Small bowel anastomoses are identified in the right lower quadrant and in the pelvis. No bowel obstruction is seen. There is laxity of the ventral pelvic wall with diastases of the rectus musculature and protrusion of bowel loops. The appendix is not identified. Peritoneum: There is no intraperitoneal free air or abdominal ascites. Lymphadenopathy: None. Pelvic viscera: The bladder is normal as visualized. The uterus is surgically absent. No adnexal lesion is seen. Presacral soft tissue thickening is unchanged dating back to 2011 and of doubtful significance. Skeletal structures: The skeletal structures are osteopenic. No lytic or blastic lesions are seen. There are chronic left pubic ring fractures. 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 There is an insufficiency fracture of the left sacrum. There is moderate to advanced lumbosacral spondylosis and scoliosis. Sclerotic change is noted in the sacroiliac joints. IMPRESSION: 1. There are no acute infectious or inflammatory findings in the abdomen or pelvis. 2. There is a left sacral insufficiency fracture. 3. 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 4. Cardiomegaly. 5. Moderate constipation. No bowel obstruction is seen. 6. Large hiatal hernia. 7. There is an indeterminant 11 mm nodular density in the right breast. Follow-up with mammography is recommended. 8. Additional findings as above. Electronically signed by: William Jacobo M.D. 09/21/2017 7:40 AM Dictated Date/Time: 09/21/2017 7:32 AM
== END 2017-09-21 04:14 | disposition home or self-care (01) ==
LOC: EDSEX 22:45 → EDBD 22:45 → C.EDA 22:47
DX: I95.9 Hypotension, unspecified (principal); R00.1 Bradycardia, unspecified; E86.0 Dehydration; R94.4 Abnormal results of kidney function studies; R14.0 Abdominal distension (gaseous); R53.83 Other fatigue; R33.9 Retention of urine, unspecified; I48.91 Unspecified atrial fibrillation; I25.2 Old myocardial infarction; I10 Essential (primary) hypertension; E03.9 Hypothyroidism, unspecified; E78.5 Hyperlipidemia, unspecified; Z79.01 Long term (current) use of anticoagulants; Z86.73 Personal history of transient ischemic attack (TIA), and cerebral infarction without residual deficits; Z98.890 Other specified postprocedural states

== ENCOUNTER → 2017-09-24 | Outpatient (CLI) | payer OTHER ==
[~2017-09-24] MED LIST changes: +ATOR-26 PO; +BISA10SU5 RE; +LINICRE61 TOP; -LPT40 PO; -LVNIS40 SQ; +TRAM-10 PO; -ULT50X PO; -WARF2.5T8 PO
[2017-09-24 08:42] LABS: BASO % 1.2 %; BASO ABS # 0.03 K/uL (0-0.2); EOS % 5.8 %; EOS ABS # 0.15 K/uL (0-0.5); HEMATOCRIT 37.8 % (37-47); HEMOGLOBIN 12.1 g/dL (12.0-16.0); LYMPH ABS # 0.75 K/uL (1.2-3.4); MEAN CELL VOLUME 97.4 fL (80-100); MEAN CORPUSCULAR HEMOGLOBIN 31.2 pg (25-34); MEAN PLATELET VOLUME 10.5 fL (7.4-10.4); MONO % 20.8 %; MONO ABS # 0.54 K/uL (0.11-0.59); NEUT % 43.2 %; NEUT ABS # 1.12 K/uL (1.4-6.5); PLATELET COUNT 251 K/uL (130-400); RED CELL DISTRIBUTION WIDTH SD 49.5 fL (36.4-46.3); WHITE BLOOD COUNT 2.59 K/uL (4.8-10.8)
[2017-09-24 08:48] LABS: INR 3.1 (0.9-1.1)
[2017-09-24 08:56] LABS: BLOOD UREA NITROGEN 22 mg/dl (7-18); CALCIUM 8.7 mg/dl (8.5-10.1); CARBON DIOXIDE 25 mmol/L (21-32); CREATININE 0.68 mg/dl (0.60-1.20); GLUCOSE 92 mg/dl (70-99); POTASSIUM 3.8 mmol/L (3.5-5.1); SODIUM 140 mmol/L (136-145)
== END ==
LOC: C.LABCC 08:20
PROVIDERS: ATTEND Internal Medicine
DX: E86.0 Dehydration (principal); M84.80 Other disorders of continuity of bone, unspecified site; R94.5 Abnormal results of liver function studies

== ENCOUNTER → 2017-09-26 | Outpatient (CLI) | payer OTHER ==
[2017-09-26 08:50] LABS: INR 3.3 (0.9-1.1)
== END ==
LOC: C.LABCC 08:21
PROVIDERS: ATTEND Internal Medicine
DX: I48.91 Unspecified atrial fibrillation (principal)

== ENCOUNTER → 2017-10-04 | Outpatient (CLI) | payer OTHER ==
[2017-10-04 08:27] LABS: INR 2.4 (0.9-1.1)
== END ==
LOC: C.LABCC 08:06
PROVIDERS: ATTEND Internal Medicine
DX: I48.91 Unspecified atrial fibrillation (principal)

== ENCOUNTER → 2017-10-12 | Outpatient (CLI) | payer OTHER ==
[~2017-10-12] MED LIST changes: -ASPEC81 PO; +ASPI-320 PO
[2017-10-12 08:54] LABS: INR 2.6 (0.9-1.1)
== END ==
LOC: C.LABCC 07:57
PROVIDERS: ATTEND Internal Medicine
DX: I48.91 Unspecified atrial fibrillation (principal)

== ENCOUNTER → 2017-10-29 | Outpatient (CLI) | payer OTHER ==
[2017-10-29 08:22] LABS: INR 2.3 (0.9-1.1)
== END ==
LOC: C.LABCC 07:50
PROVIDERS: ATTEND Internal Medicine
DX: I48.91 Unspecified atrial fibrillation (principal)

== ENCOUNTER → 2017-11-13 | Outpatient (CLI) | payer OTHER ==
[2017-11-13 09:02] LABS: BASO ABS # 0.06 K/uL (0-0.2); EOS % 5.7 %; EOS ABS # 0.17 K/uL (0-0.5); HEMATOCRIT 38.9 % (37-47); HEMOGLOBIN 12.4 g/dL (12.0-16.0); LYMPH % 25.3 %; LYMPH ABS # 0.75 K/uL (1.2-3.4); MEAN CELL VOLUME 98.2 fL (80-100); MEAN CORPUSCULAR HEMOGLOBIN 31.3 pg (25-34); MEAN CORPUSCULAR HGB CONC 31.9 g/dl (32-36); MEAN PLATELET VOLUME 10.2 fL (7.4-10.4); MONO % 20.3 %; NEUT % 46.7 %; NEUT ABS # 1.38 K/uL (1.4-6.5); PLATELET COUNT 234 K/uL (130-400); RED CELL DISTRIBUTION WIDTH CV 13.3 % (11.5-14.5); WHITE BLOOD COUNT 2.96 K/uL (4.8-10.8)
[2017-11-13 09:10] LABS: INR 1.3 (0.9-1.1)
[2017-11-13 09:11] LABS: ALT/SGPT 23 U/L (12-78); AST/SGOT 20 U/L (15-37); BLOOD UREA NITROGEN 21 mg/dl (7-18); CALCIUM 8.6 mg/dl (8.5-10.1); CARBON DIOXIDE 27 mmol/L (21-32); CREATININE 0.75 mg/dl (0.60-1.20); GLUCOSE 89 mg/dl (70-99); SODIUM 141 mmol/L (136-145)
[2017-11-13 09:21] LABS: ALKALINE PHOSPHATASE 92 U/L (45-117); TOTAL PROTEIN 5.9 gm/dl (6.4-8.2)
== END ==
LOC: C.LABCC 08:30
PROVIDERS: ATTEND Internal Medicine
DX: R53.83 Other fatigue (principal); I48.91 Unspecified atrial fibrillation

== ENCOUNTER → 2017-11-21 | Outpatient (CLI) | payer OTHER ==
[2017-11-21 09:08] LABS: INR 1.2 (0.9-1.1)
== END ==
LOC: C.LABCC 08:37
PROVIDERS: ATTEND Internal Medicine
DX: I48.91 Unspecified atrial fibrillation (principal)

== ENCOUNTER → 2017-11-27 | Outpatient (CLI) | payer OTHER | LOC: C.LABCC 07:47 | PROVIDERS: ATTEND Internal Medicine | DX: I48.91 Unspecified atrial fibrillation (principal) ==

== ENCOUNTER → 2018-02-28 | Outpatient (CLI) | payer OTHER | LOC: C.LABCC 08:33 | PROVIDERS: ATTEND Internal Medicine | DX: I48.91 Unspecified atrial fibrillation (principal) ==